=== PATIENT | female | born 1945 | race Caucasian/White ===

== ENCOUNTER → 2019-10-03 12:00 | Outpatient (BNVA) | payer MEDICARE, OTHER, SELFPAY | PROVIDERS: PCP Family Medicine; Visit Provider Family Medicine | DX: M62.830 Muscle spasm of back (principal); K21.9 Gastro-esophageal reflux disease without esophagitis; R79.89 Other specified abnormal findings of blood chemistry; R53.83 Other fatigue; M79.7 Fibromyalgia; G89.4 Chronic pain syndrome; R53.82 Chronic fatigue, unspecified; F51.01 Primary insomnia; R03.0 Elevated blood-pressure reading, without diagnosis of hypertension | CPT/HCPCS: 80053; 82607; 82652; 84443; 85025 ==

== ENCOUNTER → 2019-11-17 12:31 | Outpatient (BNVA) | payer MEDICARE, OTHER, SELFPAY | PROVIDERS: PCP Family Medicine; Visit Provider Emergency Medicine | DX: Z11.59 Encounter for screening for other viral diseases (principal); B35.4 Tinea corporis | CPT/HCPCS: 87635 ==

== ENCOUNTER → 2020-03-10 11:51 | Outpatient (BNVA) | payer MEDICARE, OTHER, SELFPAY | PROVIDERS: PCP Family Medicine; Visit Provider Family Medicine | DX: D22.30 Melanocytic nevi of unspecified part of face (principal) | CPT/HCPCS: 88304 ==

== ENCOUNTER → 2021-03-03 15:15 | Outpatient (BNVA) | payer MEDICARE, OTHER, SELFPAY | PROVIDERS: PCP Family Medicine; Visit Provider Family Medicine | DX: Z13.1 Encounter for screening for diabetes mellitus (principal); R79.89 Other specified abnormal findings of blood chemistry; Z13.220 Encounter for screening for lipoid disorders; Z13.6 Encounter for screening for cardiovascular disorders | CPT/HCPCS: 80053; 80061 ==

== ENCOUNTER → 2021-04-20 14:22 | Outpatient (BNVA) | payer MEDICARE, OTHER, SELFPAY | PROVIDERS: PCP Family Medicine; Visit Provider Nurse Practitioner Family | DX: Z20.822 Contact with and (suspected) exposure to COVID-19 (principal) | CPT/HCPCS: 87635 ==

== ENCOUNTER → 2021-07-07 09:09 | Outpatient (BNVA) | payer MEDICARE, OTHER, SELFPAY | PROVIDERS: PCP Family Medicine; Visit Provider Family Medicine | DX: M62.830 Muscle spasm of back (principal); J30.2 Other seasonal allergic rhinitis; K21.9 Gastro-esophageal reflux disease without esophagitis; R00.0 Tachycardia, unspecified; R74.8 Abnormal levels of other serum enzymes; Z78.0 Asymptomatic menopausal state; M85.80 Other specified disorders of bone density and structure, unspecified site | CPT/HCPCS: 80053; 83735; 84443; 85025 ==

== ENCOUNTER 2021-07-15 10:53 | Emergency (ER) | payer MEDICARE, OTHER, SELFPAY ==
--- NOTE | 2021-07-15 10:54 | W.ED.WEAKNES ---
HPI - Weakness General: Chief complaint: Dizziness Stated complaint: WEAKNESS, SOB Time Seen by Provider: 07/15/21 10:53 Source: patient Mode of arrival: ambulatory Limitations: no limitations History of Present Illness: 76-year-old female presents emergency room with via EMS from [facility] complaining of dizziness and weakness. She was seen last week in the clinic and had a hemoglobin of 8. While follow-up today quick check her hemoglobin was 7.8 she has been pale and weak she is not been tachycardic she has had some back discomfort no chest pain. On arrival she is on 2 L by nasal cannula however when that is discontinued she sats 98 to 99%. She not had any hematochezia melena hematemesis. She has had a few dark stools but nothing that looked black or tarry. MD Complaint: generalized weakness Onset (ago): week(s) (1) Duration: constant Location: generalized Severity: moderate Relieving factors: none Exacerbating factors: none Associated symptoms: Reports melena and decreased appetite; Denies chest pain, chills, confusion, diaphoresis, dysuria, easy bruising, fever(s), headache(s), myalgias, nausea, rash, short of breath, syncope or vomiting Review of Systems Const: Denies: fever(s), chills or diaphoresis ENMT: Denies: throat pain, ear or mastoid pain, nasal discharge or nasal congestion Card: Denies: chest pain or syncope Resp: Denies: dyspnea, productive cough or non-productive cough GI: Reports: melena; Denies: nausea or vomiting : Denies: dysuria Skin/Breast: Denies: rash or pruritus Neuro: Denies: headache(s) or confusion Willis/Lymph: Denies: easy bruising PFS ED PFSH: Medical History Chronic dental infection Chronic GERD Chronic pain syndrome Fibromyalgia Insomnia Surgical History H/O knee surgery H/O: hysterectomy Family History Mother Cancer Lung Cancer Father Cancer Lung Cancer Social History Smoking and tobacco status: never smoked Second hand smoke exposure: No Alcohol intake: never Desire information about alcohol rehabilitation?: No Desire information about substance/drug rehabilitation?: No History of recent travel: No Female Reproductive History: Spontaneous abortions: No Physical Exam Const: COMMON NORMALS: no acute distress GENERAL APPEARANCE: cooperative and comfortable ORIENTATION/CONSCIOUSNESS: Yes awake, Yes oriented to person, Yes oriented to place and Yes oriented to time HENMT: COMMON NORMALS: normocephalic, atraumatic and hearing grossly normal bilaterally HEAD & SCALP: normocephalic and atraumatic Neck/C-Spine: COMMON NORMALS: no JVD Resp: COMMON NORMALS: normal respiratory effort, No retractions, No use of accessory muscles and clear to auscultation bilaterally AUSCULTATION: clear to auscultation bilaterally Cardio: COMMON NORMALS: no JVD, regular rate, regular rhythm and No murmurs present (Cardio) RATE: regular rate RHYTHM: regular rhythm GI: COMMON NORMALS: Soft to palpation and No hepatosplenomegaly present AUSCULTATION: Yes normoactive bowel sounds PALPATION: Yes Soft to palpation, No Tenderness to palpation present (GI), No Guarding due to palpation present (GI) and Yes No hepatosplenomegaly present Extremity: COMMON NORMALS: normal to inspection, capillary refill normal, no clubbing, cyanosis or edema, no calf tenderness and no pedal edema Neuro: SENSORIUM/ORIENTATION: Yes oriented to person, Yes oriented to place and Yes oriented to time Skin: COMMON NORMALS: no rashes or lesions noted GENERAL SKIN EXAM: no rashes or lesions noted Course Vital Signs: Vital signs: Vital Signs Temperature 98.0 F 07/15/21 11:01 Pulse Rate 84 07/15/21 13:39 Respiratory Rate 15 07/15/21 13:39 Blood Pressure 138/79 07/15/21 13:39 Pulse Oximetry 100 07/15/21 13:39 MDM - Weakness Medical Decision Making Patient is microcytic anemia. She has had dark stool but no bright red blood per rectum anemia labs done already and discharge patient from the ER to outpatient surgery to transfuse 1 unit packed red blood cells and follow-up with her primary care doctor also make arrangements for her to see surgery for EGD and colonoscopy will need to continue continue to follow her hemoglobin. Medical Records I reviewed the patient's medical records. Lab Data I reviewed the patient's lab results. : 07/15/21 11:32 07/15/21 11:32 Radiology Impressions Chest X-Ray 07/15/21 10:55 IMPRESSION: 1. No acute findings. 2. Hiatal hernia. 3. Multiple chronic left rib fractures Laboratory Results WBC 5.6 10^3/uL (4.0-10.0) 07/15/21 11: RBC 3.27 10^6/uL (4.1-5.3) L 07/15/21 11:32 Hgb 7.7 g/dL (11.5-15.3) L 07/15/21 11:32 Hct 26.0 % (37.0-47.0) L 07/15/21 11:32 MCV 79.5 fl (81-99) L 07/15/21 11:32 MCH 23.5 pg (28.0-34.0) L 07/15/21 11: MCHC 29.6 g/dL (30.0-36.0) L 07/15/21 11:32 RDW 15.5 % (12.1-15.1) H 07/15/21 11:32 Plt Count 336 10^3/cmm (130-400) 07/15/21 11:32 MPV 10.0 fL (7.4-10.4) 07/15/21 11:32 Neut % (Auto) 68.3 % 07/15/21 11:32 Lymph % (Auto) 20.6 % 07/15/21 11:32 [place] % (Auto) 9.6 % 07/15/21 11:32 Eos % (Auto) 0.9 % 07/15/21 11:32 Baso % (Auto) 0.4 % 07/15/21 11:32 Reticulocyte % (Auto) 2.0 % (0.5-2.0) 07/15/21 11:32 Neut # (Auto) 3.84 10^3/uL (1.8-7.7) 07/15/21 11:32 Lymph # (Auto) 1.2 10^3/uL (0.8-4.8) 07/15/21 11:32 [place] # (Auto) 0.5 10^3/uL (0.2-0.9) 07/15/21 11:32 Eos # (Auto) 0.1 10^3/uL (0.0-0.8) 07/15/21 11:32 Baso # (Auto) 0.0 10^3/uL (0.0-0.1) 07/15/21 11:32 Nucleated RBC % (auto) 0 % 07/15/21 11:32 Nucleated RBCs # 0.0 /100WBC 07/15/21 11:32 Haptoglobin 166.0 mg/L (30-200) 07/15/21 11:32 Sodium 136 mmol/L (136-145) 07/15/21 11:32 Potassium 4.0 mmol/L (3.5-5.1) 07/15/21 11:32 Chloride 104 mmol/L (98-107) 07/15/21 11:32 Carbon Dioxide 19 mmol/L (22-29) L 07/15/21 11:32 Anion Gap 17.0 (5-19) 07/15/21 11:32 BUN 17 mg/dL (8-23) 07/15/21 11:32 Creatinine 0.8 mg/dL (0.5-0.9) 07/15/21 11:32 GFR Calculation Not Reportable 07/15/21 11:32 Glucose 84 mg/dL (65-115) 07/15/21 11:32 Calculated Osmolality 283 mOsm/kg (285-295) L 07/15/21 11:32 Calcium 9.0 mg/dL (8.5-10.5) 07/15/21 11:32 Iron 15 ug/dL (37-145) L 07/15/21 11:32 TIBC 323 mcg/dl 07/15/21 11:32 % Saturation 4.6 % (20-50) L 07/15/21 11:32 Unsat Iron Binding 308 ug/dL (112-347) 07/15/21 11:32 Ferritin 8 ng/mL (15-150) L 07/15/21 11:32 Total Bilirubin 0.2 mg/dL (0.15-1.2) 07/15/21 11:32 AST 16 U/L (0-32) 07/15/21 11:32 ALT 11 U/L (0-33) 07/15/21 11:32 Alkaline Phosphatase 65 IU/L (35-105) 07/15/21 11:32 Total Protein 6.9 g/dL (6.6-8.7) 07/15/21 11:32 Albumin 3.9 g/dL (3.5-5.2) 07/15/21 11:32 Globulin 3.0 g/dL (1.3-4.6) 07/15/21 11:32 Vitamin B12 226 pg/mL (232-1245) L 07/15/21 11:32 Folate 14.0 ng/mL (4.8-37.3) 07/15/21 11:32 Urine Color Yellow (Yellow) 07/15/21 11:32 Urine Appearance Clear (CLEAR) 07/15/21 11:32 Urine pH 8 (5-7) H 07/15/21 11:32 Ur Specific [place] 1.010 (1.005-1.030) 07/15/21 11:32 Urine Protein Neg (Negative) 07/15/21 11:32 Urine Glucose (UA) Norm (Normal) 07/15/21 11:32 Urine Ketones Negative (Negative) 07/15/21 11:32 Urine Blood Neg (Negative) 07/15/21 11:32 Urine Nitrate Negative (Negative) 07/15/21 11:32 Urine Bilirubin Neg (Negative) 07/15/21 11:32 Prot Sulfosalicylic Acd Negative (Negative) 07/15/21 11:32 Urine Urobilinogen Norm mg/dL (Negative) 07/15/21 11:32 Ur Leukocyte Esterase Negative (Negative) 07/15/21 11:32 Blood Type Cancelled 07/15/21 12:12 Rho(D) Type Cancelled 07/15/21 12:12 Antibody Screen Cancelled 07/15/21 12:12 Crossmatch See Detail 07/15/21 12:12 Discharge Plan Discharge Patient Disposition: Home Clinical Impression: Iron deficiency anemia Condition: Stable Prescriptions: No Action fluticasone propionate [Flonase Allergy Relief] 50 mcg/actuation spray,suspension 1 spray intranasal BID Qty: 18.2 5RF Rx Instructions: administer into each nostril famotidine 20 mg tablet 20 mg PO BID 90 Days Qty: 180 1RF cyclobenzaprine 10 mg tablet 10 mg PO BID PRN (Reason: muscle spasm) 30 Days Qty: 30 1RF Rx Instructions: fill when requested Allergy Relief (fexofenadine) 180 mg tablet 180 mg PO DAILY PRN (Reason: Allergy Symptoms) 0RF Calcium + D 600 mg-5 mcg (200 unit) Tablet 1 tab PO BID 0RF Vitamin C 500 mg Tablet 500 mg PO DAILY 0RF gabapentin 100 mg capsule 200 mg PO BID 0RF Discharge Orders: Discharge ED (Routine); Ordered 07/15/21 Ordered By: Madhu Terrazas Referrals: Estefani Montaño MD [Primary Care Provider] - Discharge Diet: Usual diet Discharge Activity: Increase activity as tolerated Patient Instructions: Opioid Safety Activity Restrictions/Additional Instructions: Be discharged from the ER taken to outpatient GI will transfuse 1 unit of blood. Follow-up with your doctor within a week and case management make arrangements for you to follow-up with surgery for endoscopy. Coding Level of Care Code ED E Commerce Project Manager for Jeremias Fwsri Exam Comprehensive
--- NOTE | 2021-07-15 10:55 | XRR_ITS ---
PROCEDURE INFORMATION: Exam: XR Chest Exam date and time: 07/15/2021 11:19 AM Age: 76 years old Clinical indication: Cough and dyspnea; Additional info: Dyspnea/cough TECHNIQUE: Imaging protocol: XR of the chest. Views: 1 view. COMPARISON: No relevant prior studies available. FINDINGS: Lungs: Unremarkable. No consolidation. Pleural spaces: Unremarkable. No pleural effusion. No pneumothorax. Heart/Mediastinum: Unremarkable. No cardiomegaly. There is a hiatal hernia present. Bones/joints: There are several chronic left posterolateral rib fractures XR/XR chest 1V portable [id number] IMPRESSION: 1. No acute findings. 2. Hiatal hernia. 3. Multiple chronic left rib fractures
--- NOTE | 2021-07-15 10:55 | ECG_ITS ---
[facility] Test Date: 2021-07-15 Pat Name: Vika Rocha Department: Room: Gender: Female Community Organization Worker: : 1945 Requested By: Madhu Rivera Order Number: [id number] Zulema MD: Mary Ann Gandhi M.D. Measurements Intervals [place] Rate: 68 P: 60 UT: 170 QRS: -13 QRSD: 81 T: 72 QT: 388 QTc: 413 Interpretive Statements SINUS RHYTHM POSSIBLE LEFT ATRIAL ENLARGEMENT [-0.1mV P-WAVE IN V1/V2] NONSPECIFIC T-WAVE ABNORMALITY No previous ECG available for comparison Electronically Signed On 07-15-2021 23:18:25 CDT by Mary Ann Gandhi M.D. [id number]
[2021-07-15 11:01] VITALS: BP 140/88; PULSE 71; RESP 17; TEMP 36.7; O2SAT 100; BMI 25.0
[2021-07-15 11:38] VITALS: BP 147/92
[2021-07-15 11:46] LABS: Add Urine Microscopic? NO
[2021-07-15 11:47] LABS: Charge for UA Resulting for Rev
[2021-07-15 11:49] LABS: Basophils % 0.4 %; Eosinophils # 0.1 10^3/uL (0.0-0.8); Eosinophils % 0.9 %; Hemoglobin 7.7 g/dL (11.5-15.3); Lymphocytes # 1.2 10^3/uL (0.8-4.8); Lymphocytes % 20.6 %; Mean Corpuscular HGB Conc 29.6 g/dL (30.0-36.0); Mean Corpuscular Hemoglobin 23.5 pg (28.0-34.0); Mean Corpuscular Volume 79.5 fl (81-99); Monocytes # 0.5 10^3/uL (0.2-0.9); Monocytes % 9.6 %; Neutrophils # 3.84 10^3/uL (1.8-7.7); Neutrophils % 68.3 %; Nucleated Red Blood Cells % 0 %; Platelet Count 336 10^3/cmm (130-400); Red Blood Count 3.27 10^6/uL (4.1-5.3); Red Cell Distribution Width 15.5 % (12.1-15.1); White Blood Count 5.6 10^3/uL (4.0-10.0)
--- NOTE | 2021-07-15 11:51 | PC.NURSE ---
pvc monitor placed on patient.
[2021-07-15 11:53] VITALS: BP 147/92; PULSE 73; RESP 24; O2SAT 99
[2021-07-15 12:07] LABS: Urine Appearance Clear (CLEAR); Urine Color Yellow (Yellow)
[2021-07-15 12:08] LABS: Bilirubin Urine Neg (Negative); Blood Urine Neg (Negative); Glucose Urine UA Norm (Normal); Ketones Urine Negative (Negative); Leukocyte Esterase Urine Negative (Negative); Nitrate Urine Negative (Negative); Protein Urine Neg (Negative); Urobilinogen Urine Norm (Negative); pH Urine 8 (5-7)
[2021-07-15 12:11] LABS: Sulfosalicylic Acid Urine Negative (Negative)
[2021-07-15 12:18] VITALS: BP 132/76; PULSE 83; RESP 14; O2SAT 97
[2021-07-15 12:22] LABS: Alanine Aminotransferase 11 U/L (0-33); Albumin Level 3.9 g/dL (3.5-5.2); Alkaline Phosphatase 65 IU/L (35-105); Aspartate Amino Transferase 16 U/L (0-32); Blood Urea Nitrogen 17 mg/dL (8-23); Carbon Dioxide 19 mmol/L (22-29); Chloride 104 mmol/L (98-107); Glucose 84 mg/dL (65-115); Osmolality Calculated 283 mOsm/kg (285-295); Sodium 136 mmol/L (136-145); Total Bilirubin 0.2 mg/dL (0.15-1.2); Total Protein 6.9 g/dL (6.6-8.7)
[2021-07-15 13:18] VITALS: BP 140/83; PULSE 70; RESP 18; O2SAT 100
[2021-07-15 13:22] LABS: Ferritin 8 ng/mL (15-150); Iron 15 ug/dL (37-145); Percent Saturation 4.6 % (20-50); Total Iron Binding Capacity 323 mcg/dl; Unsaturated Iron Binding 308 ug/dL (112-347); Vitamin B12 226 pg/mL (232-1245)
[2021-07-15 13:39] VITALS: BP 138/79; PULSE 84; RESP 15; O2SAT 100
--- NOTE | 2021-07-17 14:56 | DCPLANNER ---
Addendum entered by Luzma Noriega 08/05/21 21:31: Patient had a follow up appointment scheduled with general surgery - patient did attend appointment. Addendum entered by Luzma Noriega 07/23/21 13:50: Patient has a follow up appointment scheduled for Tuesday, July 29, 2021 at 9:[address] Chinchilla at general surgery. Clinic will call patient with appointment information. Addendum entered by Luzma Noriega 07/23/21 08:18: advertising assistant manager sent patients information to the front office staff at general surgery, just checking on referral. Original Note: advertising assistant manager had message to schedule a follow up appointment for patient with general surgery. advertising assistant manager sent patients information to the front office staff at general surgery. Patients information will be printed and reviewed. Clinic will call patient with appointment information.
== END 2021-07-15 13:41 | disposition home or self-care (01) ==
PROVIDERS: Emergency Provider Family Medicine; PCP Family Medicine
DX: D50.9 Iron deficiency anemia, unspecified (principal); D64.9 Anemia, unspecified
CPT/HCPCS: 36415; 36430; 71045; 80053; 81003; 82607; 82728; 82746; 83010; 83540; 83550; 85025; 85045; 86850; 86900; 86920; 93005; 99284; P9040

== ENCOUNTER → 2021-07-15 13:46 | Day surgery (SDC) | payer MEDICARE, OTHER, SELFPAY ==
[2021-07-15] VITALS (7 sets, daily range): BP systolic 127–155; BP diastolic 62–92; PULSE 70–81; RESP 17–20; TEMP 35.7–37; O2SAT 98–100; BMI 25.0
== END ==
PROVIDERS: PCP Family Medicine; Visit Provider Family Medicine
DX: D64.9 Anemia, unspecified (principal)
CPT/HCPCS: 36415; 36430; 86850; 86900; 86920; P9040

== ENCOUNTER → 2021-07-29 09:17 | Outpatient (BNVA) | payer MEDICARE, OTHER, SELFPAY | PROVIDERS: PCP Family Medicine; Referring Provider Family Medicine; Visit Provider Surgery | DX: D62 Acute posthemorrhagic anemia (principal) | CPT/HCPCS: 99203 ==

== ENCOUNTER → 2021-08-07 07:50 | Day surgery (SDC) | payer MEDICARE, OTHER, SELFPAY ==
[2021-08-07] VITALS (9 sets, daily range): BP systolic 103–142; BP diastolic 53–79; PULSE 58–96; RESP 18; TEMP 36.2–37.1; O2SAT 95–100
[2021-08-07 08:43] LABS: Hematocrit 25.6 % (37.0-47.0); Hemoglobin 7.3 g/dL (11.5-15.3)
[2021-08-07] MEDS: sodium chloride 0.9% (100 ml) 100 ML 10 ML ×2 (09:33→11:53)
--- NOTE | 2021-08-07 09:38 | PC.NURSE ---
Pt to GI lab for 2 units PRBC's. Hg 7.3 from today. First unit transfusing without difficulty. No reaction noted.
== END ==
PROVIDERS: PCP Family Medicine; Visit Provider Family Medicine
DX: D50.9 Iron deficiency anemia, unspecified (principal)
CPT/HCPCS: 36415; 36430; 85014; 85018; 86850; 86900; 86920; P9016

== ENCOUNTER → 2021-09-15 12:46 | Outpatient (BNVA) | payer MEDICARE, OTHER, SELFPAY | PROVIDERS: PCP Family Medicine; Visit Provider Internal Medicine Cardiovascular Disease | DX: R06.02 Shortness of breath (principal); D62 Acute posthemorrhagic anemia; K21.9 Gastro-esophageal reflux disease without esophagitis; G89.4 Chronic pain syndrome; K92.1 Melena | CPT/HCPCS: 99204 ==

== ENCOUNTER 2021-09-25 08:04 | Day surgery (SDC) | payer MEDICARE, OTHER, SELFPAY ==
[2021-09-23 08:39] VITALS: BMI 24.7
[2021-09-25 08:18] VITALS: BP 120/84; PULSE 81; RESP 18; TEMP 36.1; O2SAT 98
[2021-09-25] MEDS: sodium chloride 0.9% 1,000 ML 30 ML IV (08:30)
--- NOTE | 2021-09-25 09:06 | ANES.PREANE2 ---
Pre-Anesthetic Assessment Height/Weight: Height 1.6 m Weight 63.503 kg Temp Pulse Resp BP Pulse Ox 97.0 F L 81 18 120/84 98 09/25/21 08:18 09/25/21 08:18 09/25/21 08:18 09/25/21 08:18 09/25/21 08:18 Preop Diagnosis: Iron deficiency anemia Operation Date: 09/25/21 09:30 Proposed Procedures p EGD 26298/42608/d50.9(Not Applicable) - Erickson Chinchilla MD s Colonoscopy(Not Applicable) - Erickson Chinchilla MD Familial anesthetic complications: None Was Beta Serge taken within 24 hours: N/A Was Clonidine taken within 24 hours: N/A Last intake: Intake Last Liquid Date 09/24/21 Last Liquid Time 23:00 Last Solid Date 09/23/21 Last Solid Time 18:00 Social No alcohol and No tobacco Exam alert, oriented x 3, clear to auscultation bilaterally and regular rate & rhythm Airway Submandibular: within normal limits Cervical ROM: within normal limits Mallampati: Class I Dentition: full History/ROS No significant complaints Pulmonary Asthma CV/HEM Anemia None reported Hepatic None reported GI Gastroesophageal Reflux Disease GI bleed Metabolic None reported Musc/skel Fibromyalgia chronic pain syndrome Neuropsych None reported Anesthetic Plan ASA status: 2 Anesthesia: Anesthesia Evaluation and MAC Other: I discussed with the patient risks, goals, and benefits of MAC and general anesthesia. We discussed spectrum of MAC anesthesia including conversion to general as well as possibility of recall of intraoperative stimuli including discomfort/pain. Patient agrees to proceed with MAC. Risk of > 500 ml blood loss (7ml/kg in children): No Medications/Allergies Home Medications Medication Instructions Recorded Confirmed Last Taken Type cyclobenzaprine 10 mg tablet 10 mg PO BID PRN 30 Days #30 tab 07/07/21 09/25/21 08/20/21 Rx fluticasone propionate 50 1 spray INTRANASAL BID #18.2 ml 07/07/21 09/25/21 09/23/21 Rx mcg/actuation nasal spray,suspension (Flonase Allergy Relief) ascorbic acid (vitamin C) 500 mg 500 mg PO DAILY 07/15/21 09/25/21 09/23/21 History tablet (Vitamin C) fexofenadine 180 mg tablet 180 mg PO DAILY PRN 07/15/21 09/25/2109/23/22 History (Allergy Relief (fexofenadine)) ferrous sulfate [Iron (ferrous 65 mg PO DAILY 07/29/21 09/25/21 09/23/21 History sulfate)] calcium carbonate 600 mg-vitamin 1 tab PO DAILY tab 09/15/21 09/25/21 09/23/21 History D3 5 mcg (200 unit) tablet famotidine 20 mg tablet 20 mg PO DAILY tab 09/15/21 09/25/21 09/23/21 History gabapentin 100 mg capsule 200 mg PO DAILY cap 09/15/21 09/25/21 09/23/21 History Allergies Allergy/AdvReac Type Severity Reaction Status Date / Time aspirin Allergy Severe ALGY-Swell Verified 09/25/21 09:08 Lip/Tongue/Throat Current Medications Generic Name Dose Route Start Last Admin Trade Name Freq PRN Reason Stop Dose Admin Sodium Chloride 1,000 mls @ 30 mls/hr 09/25/21 08:15 09/25/21 08:30 Sodium Chloride 0.9% IV 30 mls/hr .Q24H AUGUSTUS Administration PFSH Anesthesia Medical History Chronic dental infection Chronic GERD Chronic pain syndrome Fibromyalgia Insomnia Surgical History H/O knee surgery H/O: hysterectomy Family History Mother Cancer Lung Cancer Father Cancer Lung Cancer Hypertension Social History Smoking and tobacco status: never smoked Second hand smoke exposure: No Alcohol intake: never Desire information about alcohol rehabilitation?: No Desire information about substance/drug rehabilitation?: No History of recent travel: No Female Reproductive History Spontaneous abortions: No Data Anesthesia Cardiac Studies: No Data to Display
--- NOTE | 2021-09-25 09:07 | W.PM.OPSFHP ---
Same Day Surgery H&P Indication for Procedure/HPI DATE OF PROCEDURE: September 25, 2021 CHIEF COMPLAINT/INDICATIONFOR SURGICAL PROCEDURE: Anemia PREOP DIAGNOSIS: Iron deficiency anemia PLANNED PROCEDURE: Operation Date: 09/25/21 09:30 Proposed Procedures p EGD 32112/47164/d50.9(Not Applicable) - Erickson Chinchilla MD s Colonoscopy(Not Applicable) - Erickson Chinchilla MD 07/29/2021 This is a pleasant 76 years old female patient referred to my practice with history of iron deficiency anemia requiring blood transfusion.? Patient denies history of hematemesis or bleeding per rectum, or weight loss or history of colon cancer.? She had previous colonoscopies at age of 61 and 71 respectively and both were within normal limits per her description.? She gives history of hiatal hernia 09/25/2021 Patient comes today for diagnostic EGD and colonoscopy ROS All systems have been reviewed negative except as for the above or per problem list. Medications/Allergies* Home Medications Medication Instructions Recorded Confirmed Type ascorbic acid (vitamin C) 500 mg 500 mg PO DAILY 07/15/21 09/25/21 History tablet (Vitamin C) fexofenadine 180 mg tablet 180 mg PO DAILY PRN 07/15/21 09/25/21 History (Allergy Relief (fexofenadine)) ferrous sulfate [Iron (ferrous 65 mg PO DAILY 07/29/21 09/25/21 History sulfate)] calcium carbonate 600 mg-vitamin 1 tab PO DAILY tab 09/15/21 09/25/21 History D3 5 mcg (200 unit) tablet famotidine 20 mg tablet 20 mg PO DAILY tab 09/15/21 09/25/21 History gabapentin 100 mg capsule 200 mg PO DAILY cap 09/15/21 09/25/21 History Allergies/Adverse Reactions Allergy/AdvReac Type Severity Reaction Status Date / Time aspirin Allergy Severe ALGY-Swell Verified 09/25/21 09:08 Lip/Tongue/Throat Current Medications: Generic Name Dose Route Start Last Admin Trade Name Freq PRN Reason Stop Dose Admin Sodium Chloride 1,000 mls @ 30 mls/hr 09/25/21 08:15 09/25/21 08:30 Sodium Chloride 0.9% IV 30 mls/hr .Q24H AUGUSTUS Administration Pertinent History/Comorbid Conditions* Medical History (Updated 07/23/21 @ 00:01 by ) Chronic dental infection Chronic GERD Chronic pain syndrome Fibromyalgia Insomnia Surgical History (Updated 05/16/19 @ 13:47 by Estefani Montaño MD) H/O knee surgery H/O: hysterectomy Family History (Updated 09/15/21 @ 13:05 by Suyapa Miller RN) Father Mother Cancer Mother Lung Cancer Father Lung Cancer Hypertension Father Social History Smoking and tobacco status: never smoked Second hand smoke exposure: No Alcohol intake: never Desire information about alcohol rehabilitation?: No Desire information about substance/drug rehabilitation?: No History of recent travel: No Pertinent Exam Findings alert, regular rate & rhythm and procedure specific exam findings (Abdominal examination nontender nondistended soft) Recommendations Surgery/Procedure today (Diagnostic EGD and colonoscopy with possible biopsy) Coding Level of Care Code Acute Anesthesia Technician for Jeremias Blackman
[2021-09-25 09:35] VITALS: BP 90/77; PULSE 70; RESP 21; TEMP 36.1; O2SAT 95
[2021-09-25 09:48] VITALS: BP 115/67; PULSE 65; RESP 16; O2SAT 97
[2021-09-25 09:57] VITALS: BP 111/71; PULSE 66; RESP 16; O2SAT 98
--- NOTE | 2021-09-25 12:01 | ANE.PACU2 ---
Inpatient post-anesthesia follow up: Airway intact: Yes Vital signs: Temperature 97 F Pulse Rate 66 Respiratory Rate 16 Blood Pressure 111/71 Pulse Oximetry 98 Oxygen Delivery Me thod Room Air Oxygen Flow Rate Fraction of Inspir ed Oxygen Hydration adequate: Yes Nausea and vomiting: No Pain level: 1 Mental status: Baseline
== END 2021-09-25 10:05 | disposition home or self-care (01) ==
PROVIDERS: PCP Family Medicine; Visit Provider Surgery
PROC: 0DJ08ZZ Inspection of Upper Intestinal Tract, Via Natural or Artificial Opening Endoscopic (ICD-10-PCS; CPT 43235; principal; 2021-09-25 09:30)
PROC: 0DJD8ZZ Inspection of Lower Intestinal Tract, Via Natural or Artificial Opening Endoscopic (ICD-10-PCS; CPT 45378; 2021-09-25 09:30)
DX: D50.9 Iron deficiency anemia, unspecified (principal); K57.30 Diverticulosis of large intestine without perforation or abscess without bleeding; K44.9 Diaphragmatic hernia without obstruction or gangrene; K29.70 Gastritis, unspecified, without bleeding; K29.80 Duodenitis without bleeding; K21.9 Gastro-esophageal reflux disease without esophagitis; M79.7 Fibromyalgia
CPT/HCPCS: 43239; 45378; 88305; J2704; J7030

== ENCOUNTER → 2021-09-29 10:45 | Outpatient (BNVA) | payer MEDICARE, OTHER, SELFPAY | PROVIDERS: PCP Family Medicine; Visit Provider Family Medicine | DX: D62 Acute posthemorrhagic anemia (principal); R21 Rash and other nonspecific skin eruption; K29.90 Gastroduodenitis, unspecified, without bleeding; K57.31 Diverticulosis of large intestine without perforation or abscess with bleeding | CPT/HCPCS: 85018 ==

== ENCOUNTER → 2021-10-07 14:33 | Outpatient (BNVA) | payer MEDICARE, OTHER, SELFPAY | PROVIDERS: PCP Family Medicine; Visit Provider Surgery | DX: K57.31 Diverticulosis of large intestine without perforation or abscess with bleeding (principal); K44.9 Diaphragmatic hernia without obstruction or gangrene | CPT/HCPCS: 99213 ==

== ENCOUNTER 2021-11-09 14:24 | Outpatient (CLI) | payer MEDICARE, OTHER, SELFPAY ==
--- NOTE | 2021-11-09 14:30 | XR_ITS ---
WS: [id number] DEXA (DUAL ENERGY X-RAY ABSORPTIOMETRY) Bone mineral density was performed using a [employer] machine. HISTORY: Z78.0 - Asymptomatic menopausal state COMPARISON: None available. Lumbar spine BMD (L1-L4): 1.107 g/cm2 T score: -0.6 Z score: 1.2 Total hip BMD: Left: 0.726 g/cm2. T score: -2.2 Z score: -0.5 Right: 0.793 g/cm2. T score: -1.7 Z score: 0.1 10 year probability of a major osteoporotic fracture is 20.6%. XR/XR DEXA axial skeleton* 72997 IMPRESSION: OSTEOPENIA based upon the WHO classification for females.
== END 2021-11-09 14:25 | disposition home or self-care (01) ==
PROVIDERS: PCP Family Medicine; Visit Provider Family Medicine
DX: Z78.0 Asymptomatic menopausal state (principal); M85.80 Other specified disorders of bone density and structure, unspecified site
CPT/HCPCS: 77080

== ENCOUNTER → 2021-12-30 11:16 | Outpatient (BNVA) | payer MEDICARE, OTHER, SELFPAY | PROVIDERS: PCP Family Medicine; Visit Provider Family Medicine | DX: K21.9 Gastro-esophageal reflux disease without esophagitis (principal); J30.2 Other seasonal allergic rhinitis; K92.1 Melena; E78.2 Mixed hyperlipidemia; Z13.1 Encounter for screening for diabetes mellitus; Z13.220 Encounter for screening for lipoid disorders; Z13.6 Encounter for screening for cardiovascular disorders; F51.01 Primary insomnia | CPT/HCPCS: 80053; 80061; 85025 ==

== ENCOUNTER → 2022-07-13 08:57 | Outpatient (BNVA) | payer MEDICARE, OTHER, SELFPAY | PROVIDERS: PCP Family Medicine; Visit Provider Family Medicine | DX: R53.83 Other fatigue (principal); D62 Acute posthemorrhagic anemia | CPT/HCPCS: 72100; 72202; 80053; 82607; 84443; 85025 ==

== ENCOUNTER 2022-10-13 17:06 | Emergency (ER) | payer MEDICARE, OTHER, SELFPAY ==
[2022-10-13] VITALS (9 sets, daily range): BP systolic 117–132; BP diastolic 70–86; PULSE 85–97; RESP 15–24; TEMP 36.8; O2SAT 94–100; BMI 24.6
--- NOTE | 2022-10-13 17:09 | XRR_ITS ---
PROCEDURE INFORMATION: Exam: XR Chest Exam date and time: 10/13/2022 5:14 PM Age: 77 years old Clinical indication: Cough; Additional info: SOB TECHNIQUE: Imaging protocol: Radiologic exam of the chest. Views: 1 view. COMPARISON: CR XR chest 1V portable [id number] 07/15/2021 11:19 AM FINDINGS: Lungs: The lungs are hyperinflated, consistent with COPD. No consolidative pulmonary infiltrates are noted. Pleural spaces: No pleural effusion. No pneumothorax. Heart/Mediastinum: There is a hiatal hernia noted. Bones/joints: Multiple old healed left rib fractures. No acute fractures are identified. XR/XR chest 1V portable [id number] IMPRESSION: 1. Multiple old healed left rib fractures. No acute fracture demonstrated. 2. There is a hiatal hernia noted. 3. The lungs are hyperinflated, consistent with COPD. 4. No acute abnormality demonstrated. 5. There is no interval change from the prior examination.
[2022-10-13 17:23] LABS: ABG PCO2 34.4 mmHg (35-45); ABG PH Result 7.46 (7.35-7.45); Arterial Blood Gas Hematocrit 38.1 % (37-47); Base Excess ABG 0.8 mmol/L (-2.0-2.0); Blood Gas Allen Test Pos; Blood Gas Operator Identificat WALCI; Blood Gas Sample Site Radial, left; Blood Gas Sample Type Arterial; Carboxyhemoglobin 1.2 %THgb (0.4-20.1); HCO3 ABG 24.3 mmol/L (22-26); HGB O2 Sat 94.7 % (95-100); Methemoglobin 0.5 % (0.4-1.5); Oxygen Device ROOM AIR; PO2 ABG 75.4 mmHg (80.0-100.0); Total Hemoglobin 12.4 g/dL (12-16)
[2022-10-13 17:56] LABS: Basophils % 0.3 %; Eosinophils # 0.1 10^3/uL (0.0-0.8); Hematocrit 38.8 % (37.0-47.0); Hemoglobin 12.5 g/dL (11.5-15.3); Lymphocytes # 1.1 10^3/uL (0.8-4.8); Lymphocytes % 11.3 %; Mean Corpuscular HGB Conc 32.2 g/dL (30.0-36.0); Mean Corpuscular Hemoglobin 27.7 pg (28.0-34.0); Mean Corpuscular Volume 85.8 fl (81-99); Mean Platelet Volume 8.8 fL (7.4-10.4); Monocytes # 0.9 10^3/uL (0.2-0.9); Monocytes % 8.7 %; Neutrophils # 7.91 10^3/uL (1.8-7.7); Neutrophils % 78.2 %; Nucleated Red Blood Cells % 0 %; Platelet Count 482 10^3/cmm (130-400); Red Blood Count 4.52 10^6/uL (4.1-5.3); Red Cell Distribution Width 13.7 % (12.1-15.1); White Blood Count 10.1 10^3/uL (4.0-10.0)
[2022-10-13 18:13] LABS: Alanine Aminotransferase 8 U/L (0-33); Albumin Level 3.5 g/dL (3.5-5.2); Alkaline Phosphatase 93 U/L (35-105); Aspartate Amino Transferase 11 U/L (0-32); Blood Urea Nitrogen 13 mg/dL (8-23); Calcium 8.7 mg/dL (8.5-10.5); Carbon Dioxide 25 mmol/L (22-29); Chloride 96 mmol/L (98-107); Globulin 4.9 g/dL (1.3-4.6); Glucose 95 mg/dL (65-115); Osmolality Calculated 274 mOsm/kg (285-295); Sodium 132 mmol/L (136-145); Total Bilirubin 0.2 mg/dL (0.15-1.2); Total Protein 8.4 g/dL (6.6-8.7)
[2022-10-13] MEDS: methylPREDNISolone sod succ 125 mg SDV 80 MG IVP (18:59)
[2022-10-13 19:04] LABS: NT Pro B Type Natriuretic Pept 209 pg/mL (0-450)
--- NOTE | 2022-10-13 19:16 | CTR_ITS ---
PROCEDURE INFORMATION: Exam: CTA Chest With Contrast Exam date and time: 10/13/2022 7:45 PM Age: 77 years old Clinical indication: Shortness of breath; Additional info: Hypoxia TECHNIQUE: Imaging protocol: Computed tomographic angiography of the chest with contrast. Exam focused on the arteries. 3D rendering (Not supervised by radiologist): MIP and/or 3D reconstructed images were created by the technologist. Radiation optimization: All CT scans at this facility use at least one of these dose optimization techniques: automated exposure control; mA and/or kV adjustment per patient size (includes targeted exams where dose is matched to clinical indication); or iterative reconstruction. Contrast material: OMNI 350; Contrast volume: 100 ml; Contrast route: INTRAVENOUS (IV); REPORTING DATA: Count of CT and Cardiac NM exams in prior 12 months: This patient has received 0 known CTs and 0 known cardiac nuclear medicine studies in the 12 months prior to the current study. COMPARISON: CR (CHEST, ) 10/13/2022 5:14 PM RADIATION DOSE METRICS: Total DLP (mGy-cm): 299.02 FINDINGS: Pulmonary arteries: Pulmonary arteries are normal in size. No filling defects are demonstrated. No evidence of pulmonary embolism. Aorta: Thoracic aorta is atherosclerotic. No aortic aneurysm or aortic dissection noted. Lungs: Mild atelectasis at the lung bases. No consolidation. No masses. Pleural spaces: No pneumothorax. No pleural effusion. Heart: No cardiomegaly. No pericardial effusion. Coronary arteries: The coronary arteries demonstrate atherosclerotic calcifications. Lymph nodes: No mediastinal, hilar, or axillary adenopathy. Adenopathy demonstrated in the upper abdomen. Enlarged aortocaval lymph nodes are seen measuring up to 15 mm in length. Stomach and bowel: Large hiatal hernia noted, containing a large portion of the stomach. Bones/joints: Degenerative spine changes are noted. No acute osseous abnormality. Soft tissues: Unremarkable. CT/CT angio chest PE protcl [id number] IMPRESSION: 1. No evidence of pulmonary embolism. 2. No evidence of thoracic aortic aneurysm or dissection. 3. Large hiatal hernia noted, containing a large portion of the stomach. 4. Adenopathy demonstrated in the upper abdomen. Enlarged aortocaval lymph nodes are seen measuring up to 15 mm in length.
[2022-10-13] MEDS: ipratropium-albuterol 3 mL Neb INHALATION (19:19)
[2022-10-13] MEDS: iohexol 350 mg/mL 500 mL Btl (per mL) IV (19:50)
--- NOTE | 2022-10-13 20:29 | ED_ITS ---
HPI - URI/Sore Throat General: Chief Complaint: Upper Respiratory Infection Stated Complaint: COUGH History of Present Illness: 77-year-old female presented emergency room with cough for the past 3 weeks. Patient described the cough as nonproductive cough. Coughing up blood, vomiting blood, chest pain, fever or chills. Patient was seen and evaluated at a local clinic and sent to the emergency room for further evaluation when she was found to be tachycardic and hypoxic. According to the EMS patient's oxygen level was 70% on room air. Denies any history of asthma, blood clot, leg pain, leg swelling or calf tenderness. No known sick contact or recent foreign travel. Associated symptoms: Deny chills, chest pain or fever(s) Review of Systems General: Reports: 10 or more systems reviewed and unremarkable except in HPI and below Const: Denies: fever(s), chills, body aches, change in appetite, change in weight, fatigue or malaise Card: Denies: chest pain, palpitations, irregular heart rhythm, edema, swe lling of feet/ankles, lightheadedness or syncope Resp: Reports: non-productive cough; Denies: dyspnea, wheezing, stridor, pain on inspiration, change in phlegm color, hemoptysis or chest congestion Skin/Breast: Denies: rash, pruritus, erythema or photosensitivity PFSH ED PFSH: Medical History Chronic dental infection Chronic GERD Chronic pain syndrome Fibromyalgia GI bleed If continues to be of concern about GI to be a source of patient's anemia a capsule endoscopy would be the next step. Insomnia Surgical History H/O knee surgery H/O: hysterectomy History of colonoscopy Family History Mother Cancer Lung Cancer Father Cancer Lung Cancer Hypertension Social History Smoking and tobacco status: never smoked Second hand smoke exposure: No Alcohol intake: never Desire information about alcohol rehabilitation?: No Substance/Drug Use: never Desire information about substance/drug rehabilitation?: No Female Reproductive History: Spontaneous abortions: No Physical Exam Const: COMMON NORMALS: no acute distress, average body habitus, patient oriented x3, no limitations, healthy appearing, alert and well nourished Neck/C-Spine: COMMON NORMALS: no JVD Lymph: LYMPHATIC: no lymphadenopathy noted Resp: AUSCULTATION: no crackles, no rales, wheezes, breath sounds present, lung sounds not diminished, no bronchial breath sounds, no bronchovesicular breath sounds, no egophony, no tactile fremitus and No rub present Cardio: COMMON NORMALS: no JVD, regular rate, regular rhythm, S1 normal heart sound present, S2 normal heart sound present, No gallops present (Cardio), No clicks present (Cardio), No murmurs present (Cardio), No rub (Cardio) and Peripheral pulses 2+ throughout RATE: regular rate RHYTHM: regular rhythm HEART SOUNDS: S1 normal heart sound present and S2 normal heart sound present PERIPHERAL PULSES: Peripheral pulses 2+ throughout GI: COMMON NORMALS: Normal to inspection, nondistended, normoactive bowel sounds present, Soft to palpation, non-tender, No hepatosplenomegaly present, no masses and no bruits PALPATION: Yes Soft to palpation and Yes No hepatosplenomegaly present Extremity: COMMON NORMALS: normal to inspection, full ROM, capillary refill normal, no joint enlargement, no clubbing, cyanosis or edema, no calf tenderness and no pedal edema Neuro: COMMON NORMALS: patient oriented x3 SENSORIUM/ORIENTATION: Yes alert Psych: COMMON NORMALS: mental status grossly normal, Normal thought process present, cooperative, normal affect, speech normal, activity/motor behavior normal, denies hallucinations, denies homicidal ideation and denies suicidal ideation SPEECH: Yes normal speech THOUGHT PROCESS: Normal thought process present Course Vital Signs: Vital signs: Vital Signs Temperature 98.3 F 10/13/22 17:03 Pulse Rate 91 10/13/22 19:24 Respiratory Rate 18 10/13/22 19:20 Blood Pressure 117/70 10/13/22 19:03 Pulse Oximetry 98 10/13/22 19:20 Oxygen Delivery Me thod Room Air 10/13/22 19:20 MDM - URI/Sore Throat Medical Decision Making Patient made comfortable emergency room. Patient had extensive work-up done including CBC, CMP, ABG chest x-ray and CT scan. I discussed lab findings with patient and . I discussed the patient with the hospitalist and recommended discharge position home since patient has been stable on room air with any acute distress. Will be discharged home on antibiotics and steroids. Medical Records Medical records narrative: PE, pneumonia, bronchitis, COPD, asthma, cataracts, pleural effusion pleurisy pericarditis Lab Data Chest x-ray reviewed no obvious acute findings. CT scan report reviewed normal acute process. 10/13/22 17:25 10/13/22 17:25 Radiology Impressions Chest X-Ray 10/13/22 17:09 IMPRESSION: 1. Multiple old healed left rib fractures. No acute fracture demonstrated. 2. There is a hiatal hernia noted. 3. The lungs are hyperinflated, consistent with COPD. 4. No acute abnormality demonstrated. 5. There is no interval change from the prior examination. Chest CTA 10/13/22 19:16 IMPRESSION: 1. No evidence of pulmonary embolism. 2. No evidence of thoracic aortic aneurysm or dissection. 3. Large hiatal hernia noted, containing a large portion of the stomach. 4. Adenopathy demonstrated in the upper abdomen. Enlarged aortocaval lymph nodes are seen measuring up to 15 mm in length. Laboratory Results WBC 10.1 10^3/uL (4.0-10.0) H 10/13/22 17:25 RBC 4.52 10^6/uL (4.1-5.3) 10/13/22 17:25 Hgb 12.5 g/dL (11.5-15.3) 10/13/22 17:25 Hct 38.8 % (37.0-47.0) 10/13/22 17:25 MCV 85.8 fl (81-99) 10/13/22 17:25 MCH 27.7 pg (28.0-34.0) L 10/13/22 17:25 MCHC 32.2 g/dL (30.0-36.0) 10/13/22 17:25 RDW 13.7 % (12.1-15.1) 10/13/22 17:25 Plt Count 482 10^3/cmm (130-400) H 10/13/22 17:25 MPV 8.8 fL (7.4-10.4) 10/13/22 17:25 Neut % (Auto) 78.2 % 10/13/22 17:25 Lymph % (Auto) 11.3 % 10/13/22 17:25 [place] % (Auto) 8.7 % 10/13/22 17:25 Eos % (Auto) 1.0 % 10/13/22 17: Baso % (Auto) 0.3 % 10/13/22 17:25 Neut # (Auto) 7.91 10^3/uL (1.8-7.7) H 10/13/22 17:25 Lymph # (Auto) 1.1 10^3/uL (0.8-4.8) 10/13/22 17:25 [place] # (Auto) 0.9 10^3/uL (0.2-0.9) 10/13/22 17: Eos # (Auto) 0.1 10^3/uL (0.0-0.8) 10/13/22 17: Baso # (Auto) 0.0 10^3/uL (0.0-0.1) 10/13/22 17: Nucleated RBC % (auto) 0 % 10/13/22: Nucleated RBCs # 0.0 /100WBC 10/13/22 17:25 Specimen Type Arterial 10/13/22 17:12 Sample Site Radial, left 10/13/22 17:12 ABG pH 7.46 (7.35-7.45) H 10/13/22 17:12 ABG pCO2 34.4 mmHg (35-45) L 10/13/22 17:12 ABG pO2 75.4 mmHg (80.0-100.0) L 10/13/22 17: ABG HCO3 24.3 mmol/L (22-26) 10/13/22 17:12 ABG Base Excess 0.8 mmol/L (-2.0-2.0) 10/13/22 17:12 Jonah Test Pos 10/13/22 17:12 Hematocrit 38.1 % (37-47) 10/13/22 17:12 Hgb O2 Saturation 94.7 % (95-100) L 10/13/22 17:12 Carboxyhemoglobin 1.2 %THgb (0.4-20.1) 10/13/22 17: Methemoglobin 0.5 % (0.4-1.5) 10/13/22 17: Total Hemoglobin 12.4 g/dL (12-16) 10/13/22 17:12 O2 Delivery Device Room air 10/13/22 17:12 FiO2 21.0 % 10/13/22 17:12 Composition Roll Maker And Cutter ID Naren 10/13/22 17:12 Sodium 132 mmol/L (136-145) L 10/13/22 17:25 Potassium 4.0 mmol/L (3.5-5.1) 10/13/22 17:25 Chloride 96 mmol/L (98-107) L 10/13/22 17:25 Carbon Dioxide 25 mmol/L (22-29) 10/13/22 17:25 Anion Gap 15.0 (5-19) 10/13/22 17:25 BUN 13 mg/dL (8-23) 10/13/22 17:25 Creatinine 1.1 mg/dL (0.5-0.9) H 10/13/22 17:25 GFR Calculation Not Reportable 10/13/22 17:25 Glucose 95 mg/dL (65-115) 10/13/22 17:25 Calculated Osmolality 274 mOsm/kg (285-295) L 10/13/22 17:25 Calcium 8.7 mg/dL (8.5-10.5) 10/13/22 17:25 Total Bilirubin 0.2 mg/dL (0.15-1.2) 10/13/22 17:25 AST 11 U/L (0-32) 10/13/22 17:25 ALT 8 U/L (0-33) 10/13/22 17:25 Alkaline Phosphatase 93 U/L (35-105) 10/13/22 17:25 NT-Pro-B Natriuret Pep 209 pg/mL (0-450) 10/13/22 17:25 Total Protein 8.4 g/dL (6.6-8.7) 10/13/22 17:25 Albumin 3.5 g/dL (3.5-5.2) 10/13/22 17:25 Globulin 4.9 g/dL (1.3-4.6) H 10/13/22 17:25 Discharge Plan Discharge Patient Disposition: Home Clinical Impression: Hypoxia, COPD (chronic obstructive pulmonary disease) with acute bronchitis Condition: Stable Prescriptions: New Medrol (Shaquille) 4 mg tablets,dose pack 4 mg PO TID Qty: 21 0RF codeine-guaifenesin 10-100 mg/5 mL liquid 5 ml PO Q4H PRN (Reason: cough) Qty: 120 0RF Zithromax Z-Shaquille 250 mg tablet 250 mg PO DAILY 6 Days Qty: 6 0RF Rx Instructions: start on day 2 of therapy ProAir HFA 90 mcg/actuation HFA aerosol inhaler 2 inh inhalation Q4H Qty: 8.5 0RF No Action amitriptyline 25 mg tablet 25 mg PO .at bedtime 90 Days Qty: 90 1RF ferrous sulfate [Iron (ferrous sulfate)] 65 mg PO DAILY fluticasone propionate [Flonase Allergy Relief] 50 mcg/actuation spray,suspension 1 spray intranasal BID Qty: 18.2 11RF Rx Instructions: administer into each nostril fexofenadine [Allergy Relief (fexofenadine)] 180 mg tablet 180 mg PO DAILY PRN (Reason: Allergy Symptoms) 90 Days Qty: 90 3RF ascorbic acid (vitamin C) [Vitamin C] 500 mg Tablet 500 mg PO DAILY calcium carbonate-vitamin D3 600 mg-5 mcg (200 unit) tablet 1 tab PO DAILY Discharge Orders: Discharge ED (Routine); Ordered 10/13/22 Ordered By: Brayan Ryder Referrals: Tk De La Torre MD [Physician] - 1-3 days Estefani Montaño MD [Primary Care Provider] - Discharge Diet: Advance as tolerated Discharge Activity: Resume usual activity Patient Instructions: Opioid Safety, Pain Management Coding Level of Care Code ED Cumulative Effects Analyst for Jeremias Blackman
== END 2022-10-13 21:37 | disposition home or self-care (01) ==
PROVIDERS: Emergency Provider Family Medicine; PCP Family Medicine
DX: J44.0 Chronic obstructive pulmonary disease with (acute) lower respiratory infection (principal); R09.02 Hypoxemia
CPT/HCPCS: 36415; 36600; 71045; 71275; 80053; 82805; 83880; 85025; 87040; 94640; 96374; 99285; J2930; Q9967

== ENCOUNTER → 2022-10-18 11:15 | Outpatient (BNVA) | payer MEDICARE, OTHER, SELFPAY | PROVIDERS: PCP Family Medicine; Visit Provider Family Medicine | DX: J20.9 Acute bronchitis, unspecified (principal); J44.0 Chronic obstructive pulmonary disease with (acute) lower respiratory infection; K44.9 Diaphragmatic hernia without obstruction or gangrene | CPT/HCPCS: 71046 ==

== ENCOUNTER 2022-10-20 10:49 | Outpatient (CLI) | payer MEDICARE, OTHER, SELFPAY | END 2022-10-20 10:50 | disposition home or self-care (01) | LOC: RT 10:50 | PROVIDERS: PCP Family Medicine; Visit Provider Family Medicine | DX: J44.0 Chronic obstructive pulmonary disease with (acute) lower respiratory infection (principal); J20.9 Acute bronchitis, unspecified | CPT/HCPCS: 94010; 94726; 94729 ==

== ENCOUNTER → 2022-11-09 08:22 | Outpatient (BNVA) | payer MEDICARE, OTHER, SELFPAY | PROVIDERS: PCP Family Medicine; Visit Provider Surgery | DX: K44.9 Diaphragmatic hernia without obstruction or gangrene (principal); K29.90 Gastroduodenitis, unspecified, without bleeding | CPT/HCPCS: 99204; 99214 ==

== ENCOUNTER 2022-11-10 10:05 | Outpatient (CLI) | payer MEDICARE, OTHER, SELFPAY ==
--- NOTE | 2022-11-10 | FL_ITS ---
WS: [id number] FL barium swallow modifd [id number] REASON FOR EXAM: Other dysphagia FLUOROSCOPY TIME: 2min [id number] # OF SPOT FILMS: None FINDINGS: None procedure was supervised by the speech therapy department. Patient was examined in the sitting upright position. The lateral projection. The swallowing of varying consistencies of barium was monitored fluoroscopically and video recorded. Detailed analysis and report of the swallowing will be rendered by the speech therapy department. IMPRESSION: Modified barium swallow as above.
== END 2022-11-10 10:06 | disposition home or self-care (01) ==
PROVIDERS: PCP Family Medicine; Visit Provider Family Medicine
DX: R13.19 Other dysphagia (principal)
CPT/HCPCS: 74230; 92611

== ENCOUNTER → 2022-12-20 09:52 | Outpatient (BNVA) | payer MEDICARE, OTHER, SELFPAY | PROVIDERS: PCP Family Medicine; Visit Provider Internal Medicine Pulmonary Disease | DX: J30.2 Other seasonal allergic rhinitis (principal); R05.3 Chronic cough; K44.9 Diaphragmatic hernia without obstruction or gangrene | CPT/HCPCS: 99204 ==

== ENCOUNTER → 2023-01-06 10:44 | Outpatient (BNVA) | payer MEDICARE, OTHER, SELFPAY | PROVIDERS: PCP Family Medicine; Visit Provider Family Medicine | DX: R05.3 Chronic cough (principal); R74.8 Abnormal levels of other serum enzymes; E87.1 Hypo-osmolality and hyponatremia; E78.2 Mixed hyperlipidemia | CPT/HCPCS: 80048; 80061 ==

== ENCOUNTER 2023-06-11 22:35 | Emergency (ER) | payer MEDICARE, OTHER, SELFPAY ==
[2023-06-11 22:37] VITALS: BP 112/76; PULSE 100; RESP 18; TEMP 36.3; O2SAT 99
--- NOTE | 2023-06-11 23:13 | XRR_ITS ---
PROCEDURE INFORMATION: Exam: XR Thoracic Spine Exam date and time: 06/11/2023 11:35 PM Age: 77 years old Clinical indication: Pain in thoracic spine; Patient HX: Persistent back pain x 1 week. No injury. ; Additional info: Mid back pain TECHNIQUE: Imaging protocol: Radiologic exam of the thoracic spine. Views: 3 views. COMPARISON: CR (PELVIS, ) 06/11/2023 11:35 PM FINDINGS: Bones/joints: No thoracic spine fracture or listhesis. Old healed fracture deformities of the left 3rd, 4th, 5th and 6th ribs and old non fused fracture of the left 7th rib. Soft tissues: Unremarkable. XR/XR thoracic spine 3V* [id number] IMPRESSION: 1. No thoracic spine fracture or listhesis. 2. Old healed fracture deformities of the left 3rd, 4th, 5th and 6th ribs and old non fused fracture of the left 7th rib.
--- NOTE | 2023-06-11 23:13 | XRR_ITS ---
PROCEDURE INFORMATION: Exam: XR Lumbosacral Spine Exam date and time: 06/11/2023 11:35 PM Age: 77 years old Clinical indication: Low back pain; Patient HX: Persistent back pain x 1 week. No injury. TECHNIQUE: Imaging protocol: Radiologic exam of the lumbosacral spine. Views: 2 or 3 views. COMPARISON: CR XR lumbar spine 2-3V* [id number] 07/13/2022 9:14 AM FINDINGS: Bones/joints: Severe degenerative disc disease with associated endplate changes at L4-L5 and L5-S1. 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 Soft tissues: Unremarkable. XR/XR lumbar spine 2-3V* [id number] IMPRESSION: 1. Severe degenerative disc disease with associated endplate changes at L4-L5 and L5-S1. 2. 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
--- NOTE | 2023-06-11 23:30 | ED_ITS ---
Documented by User: ETHAN Mohr 06/12/23 00:51 HPI - Back Pain/Injury General: Chief Complaint: Back Pain/Injury Stated Complaint: Lower back pain Time Seen by Provider: 06/11/23 22:46 Source: patient Mode of arrival: ambulatory Limitations: no limitations History of Present Illness: Patient is 77-year-old female presents to the emergency department complaining of right back pain onset 1 week. Patient states when the pain started, she was not doing anything strenuous aside from vigorous coughing from her history of allergies. Though, she denies noting any sudden onset of pain following a coughing episode. She denies any previous history of back surgeries, though states many years ago she fell off a horse and had multiple posterior rib fractures, per patient. She currently states that she cannot get comfortable due to the pain and has not had relief from half a cyclobenzaprine pill or any [id number] remedies such as ice/heat. She denies any bowel/bladder incontinence, midline spinous tenderness, lower extremity numbness/weakness, saddle anesthesia, fevers, or any other concerning symptoms. Patient denies any urinary symptoms. MD elicited complaint: back pain Onset (ago): week(s) (1) Timing: constant Location: right lower back Radiation: none Exacerbating factors: movement Relieving factors: none Associated symptoms: Reports no associated symptoms; Deny abdominal pain, chills, dysuria, fatigue, fever(s), nausea or vomiting Work related injury: No Review of Systems General: Reports: 10 or more systems reviewed and unremarkable except in HPI and below Const: Denies: fever(s), chills or fatigue Eyes: Denies: change in vision ENMT: Denies: throat pain, ear or mastoid pain or nasal discharge Card: Denies: chest pain, palpitations, swelling of feet/ankles or lightheadedness Resp: Denies: dyspnea, productive cough or wheezing GI: Denies: abdominal pain, nausea, vomiting, diarrhea or constipation : Denies: flank pain, difficulty voiding, dysuria or urinary frequency Musc: Reports: back pain; Denies: neck pain, extremity pain, extremity swelling or joint pain Skin/Breast: Denies: rash Neuro: Denies: headache(s), numbness in extremities or weakness in extremities PFS ED PFSH: Medical History GI bleed If continues to be of concern about GI to be a source of patient's anemia a capsule endoscopy would be the next step. Chronic dental infection Insomnia Fibromyalgia Chronic pain syndrome Chronic GERD Surgical History History of colonoscopy H/O knee surgery H/O: hysterectomy Family History Mother Cancer Lung Cancer Father Cancer Lung Cancer Hypertension Social History Smoking and tobacco/nicotine status: never used tobacco/nicotine Second hand smoke exposure: No Alcohol intake: never Substance/Drug Use: never Female Reproductive History: Spontaneous abortions: No Physical Exam Const: COMMON NORMALS: no acute distress, patient oriented x3 and no l imitations GENERAL APPEARANCE: cooperative, comfortable and well developed ORIENTATION/CONSCIOUSNESS: Yes awake, Yes oriented to person, Yes oriented to place and Yes oriented to time HENMT: COMMON NORMALS: normocephalic, atraumatic and hearing grossly normal bilaterally HEAD & SCALP: normocephalic and atraumatic Eye: COMMON NORMALS: EOMs intact bilaterally and conjunctivae normal CONJUNCTIVA: Yes conjunctivae normal Neck/C-Spine: COMMON NORMALS: full ROM Resp: COMMON NORMALS: normal respiratory effort, No retractions, No use of accessory muscles and clear to auscultation bilaterally AUSCULTATION: clear to auscultation bilaterally Cardio: COMMON NORMALS: regular rate, regular rhythm, No clicks present (Cardio), No murmurs present (Cardio) and No rub (Cardio) RATE: regular rate RHYTHM: regular rhythm : COMMON NORMALS: Yes no CVA tenderness BLADDER/KIDNEY EXAM: Yes no CVA tenderness Back/Pelvis: COMMON NORMALS: no CVA tenderness and thoracic and lumbar spine normal to inspection THORACIC SPINE/UPPER BACK: Yes normal to inspection, Yes pain with ROM and Yes paraspinal muscle tenderness Thoracic paraspinal muscle tenderness: right LUMBAR SPINE/LOWER BACK: Yes normal to inspection, Yes pain with ROM and Yes paraspinal muscle tenderness Lumbar paraspinal muscle tenderness: right Extremity: COMMON NORMALS: normal to inspection, full ROM and capillary refill normal Neuro: COMMON NORMALS: patient oriented x3, moves all extremities, no focal motor deficits and no sensory deficits noted SENSORIUM/ORIENTATION: Yes oriented to person, Yes oriented to place and Yes oriented to time Psych: COMMON NORMALS: mental status grossly normal and Normal thought process present THOUGHT PROCESS: Normal thought process present Skin: COMMON NORMALS: no rashes or lesions noted GENERAL SKIN EXAM: no rashes or lesions noted Course Vital Signs: Vital signs: Vital Signs Temperature 97.4 F L 06/11/23 22:37 Pulse Rate 84 06/12/23 00:58 Respiratory Rate 14 06/12/23 00:58 Blood Pressure 123/79 06/12/23 00:58 Pulse Oximetry 95 06/12/23 00:58 Oxygen Delivery Me thod Room Air 06/11/23 23:45 MDM - Back Pain/Injury Medical Decision Making Patient seen and evaluated in the emergency department today for approximately 1 week of right low back pain. Patient's history of posterior left rib fractures, no other back surgeries or prior injury to her she is currently feeling pain. Examination patient is uncomfortable appearing due to the pain she states she cannot get in any position that alleviates it. X-rays of the thoracic and lumbar spine negative for any acute findings. Norflex as well as p.o. acetaminophen. On recheck, patient states she initially was feeling better but now is having more bouts of shooting pain. Will order a UA for evaluation of any preliminary kidney/ureter stone signs, with the UA being essentially unremarkable. Following the patient she is most likely dealing with a musculoskeletal back strain and I will prescribe her muscle relaxer to take as needed along with prescription strength Tylenol. Told her to follow-up with her primary care next week if she is still having pain. Otherwise patient discharged home. Patient agrees. Labs Radiology Impressions Lumbar Spine X-Ray 06/11/23 23:13 IMPRESSION: 1. Severe degenerative disc disease with associated endplate changes at L4-L5 and L5-S1. 2. 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 Thoracic Spine X-Ray 06/11/23 23:13 IMPRESSION: 1. No thoracic spine fracture or listhesis. 2. Old healed fracture deformities of the left 3rd, 4th, 5th and 6th ribs and old non fused fracture of the left 7th rib. Laboratory Results Urine Color Dark yellow (Yellow) 06/11/23 23:48 Urine Appearance Cloudy (CLEAR) A 06/11/23 23:48 Urine pH 8 (5-7) H 06/11/23 23:48 Ur Specific [place] 1.010 (1.005-1.030) 06/11/23 23:48 Urine Protein Neg (Negative) 06/11/23 23:48 Urine Glucose (UA) Norm (Normal) 06/11/23 23:48 Urine Ketones Negative (Negative) 06/11/23 23:48 Urine Blood Neg (Negative) 06/11/23 23:48 Urine Nitrate Negative (Negative) 06/11/23 23:48 Urine Bilirubin Neg (Negative) 06/11/23 23:48 Prot Sulfosalicylic Acd Negative (Negative) 06/11/23 23:48 Urine Urobilinogen Neg mg/dL (Negative) 06/11/23 23:48 Ur Leukocyte Esterase Negative (Negative) 06/11/23 23:48 Urine RBC 0-4 /hpf (0-2) H 06/11/23 23:48 Urine WBC 0-4 /hpf (0-5) H 06/11/23 23:48 Ur Squamous Epith Cells 0-4 /hpf (0-5) H 06/11/23 23:48 Amorphous Sediment 1+ /hpf 06/11/23 23:48 Urine Bacteria 1+ /hpf (NONE) H 06/11/23 23:48 Urine Mucus Trace /hpf 06/11/23 23:48 All radiology interpretation(s) finalized by discharge Discharge Plan Discharge Patient Disposition: Home Clinical Impression: Low back pain Qualifiers: Chronicity: acute Back pain laterality: right Sciatica presence: without sciatica Qualified Code(s): M54.50 - Low back pain, unspecified Condition: Stable Prescriptions: New cyclobenzaprine 10 mg tablet 10 mg PO TID Qty: 30 0RF acetaminophen 500 mg tablet 1,000 mg PO Q6H PRN (Reason: pain) Qty: 60 0RF No Action prednisone 10 mg tablet 10 mg PO DAILY 5 Days Qty: 5 0RF Rx Instructions: start this medicine on Tuesday. ferrous sulfate [Iron (ferrous sulfate)] 65 mg PO DAILY fexofenadine [Allergy Relief (fexofenadine)] 180 mg tablet 180 mg PO DAILY PRN (Reason: Allergy Symptoms) 90 Days Qty: 90 3RF pantoprazole 40 mg tablet,delayed release (DR/EC) 40 mg PO DAILY Qty: 90 1RF Rx Instructions: Take one tablet daily fluticasone propionate 50 mcg/actuation spray,suspension See Rx Instructions .ROUTE .COMPLEX Qty: 48 2RF Dose Instruction: USE 1 SPRAY IN EACH NOSTRIL TWICE DAILY Rx Instructions: USE 1 SPRAY IN EACH NOSTRIL TWICE DAILY ascorbic acid (vitamin C) [Vitamin C] 500 mg Tablet 500 mg PO DAILY calcium carbonate-vitamin D3 600 mg-5 mcg (200 unit) tablet 1 tab PO DAILY Discharge Orders: Discharge ED (Routine); Ordered 06/12/23 Ordered By: Liam Cooper Referrals: Estefani Montaño MD [Primary Care Provider] - Discharge Diet: Usual diet Discharge Activity: Increase activity as tolerated Patient Instructions: Acute Low Back Pain (ED) Activity Restrictions/Additional Instructions: Take cyclobenzaprine as prescribed. Tylenol as directed. Ice/heat as needed. Gentle range of motion exercises as tolerated. Please follow-up with your primary care provider next week. Return with any new concerning symptoms. Coding Level of Care Code ED Delivery Table Operator for Chg Fwd Documented by User: Madhu Terrazas DO 06/13/23 11:34 HPI - Back Pain/Injury General: Chief Complaint: Back Pain/Injury Stated Complaint: Lower back pain Time Seen by Provider: 06/11/23 22:46 PFSH ED PFSH: Medical History GI bleed If continues to be of concern about GI to be a source of patient's anemia a capsule endoscopy would be the next step. Chronic dental infection Insomnia Fibromyalgia Chronic pain syndrome Chronic GERD Surgical History History of colonoscopy H/O knee surgery H/O: hysterectomy Family History Mother Cancer Lung Cancer Father Cancer Lung Cancer Hypertension Social History Smoking and tobacco/nicotine status: never used tobacco/nicotine Second hand smoke exposure: No Alcohol intake: never Substance/Drug Use: never Course Vital Signs: Vital signs: Vital Signs Temperature 97.4 F L 06/11/23 22:37 Pulse Rate 84 06/12/23 00:58 Respiratory Rate 14 06/12/23 00:58 Blood Pressure 123/79 06/12/23 00:58 Pulse Oximetry 95 06/12/23 00:58 Oxygen Delivery Me thod Room Air 06/11/23 23:45 MDM - Back Pain/Injury Medical Decision Making Patient seen and evaluated in the emergency department today for approximately 1 week of right low back pain. Patient's history of posterior left rib fractures, no other back surgeries or prior injury to her she is currently feeling pain. Examination patient is uncomfortable appearing due to the pain she states she cannot get in any position that alleviates it. X-rays of the thoracic and lumbar spine negative for any acute findings. Norflex as well as p.o. ac etaminophen. On recheck, patient states she initially was feeling better but now is having more bouts of shooting pain. Will order a UA for evaluation of any preliminary kidney/ureter stone signs, with the UA being essentially unremarkable. Following the patient she is most likely dealing with a musculoskeletal back strain and I will prescribe her muscle relaxer to take as needed along with prescription strength Tylenol. Told her to follow-up with her primary care next week if she is still having pain. Otherwise patient discharged home. Patient agrees. Chart reviewed Labs Radiology Impressions Lumbar Spine X-Ray 06/11/23 23:13 IMPRESSION: 1. Severe degenerative disc disease with associated endplate changes at L4-L5 and L5-S1. 2. 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 Thoracic Spine X-Ray 06/11/23 23:13 IMPRESSION: 1. No thoracic spine fracture or listhesis. 2. Old healed fracture deformities of the left 3rd, 4th, 5th and 6th ribs and old non fused fracture of the left 7th rib. Laboratory Results Urine Color Dark yellow (Yellow) 06/11/23 23:48 Urine Appearance Cloudy (CLEAR) A 06/11/23 23:48 Urine pH 8 (5-7) H 06/11/23 23:48 Ur Specific [place] 1.010 (1.005-1.030) 06/11/23 23:48 Urine Protein Neg (Negative) 06/11/23 23:48 Urine Glucose (UA) Norm (Normal) 06/11/23 23:48 Urine Ketones Negative (Negative) 06/11/23 23:48 Urine Blood Neg (Negative) 06/11/23 23:48 Urine Nitrate Negative (Negative) 06/11/23 23:48 Urine Bilirubin Neg (Negative) 06/11/23 23:48 Prot Sulfosalicylic Acd Negative (Negative) 06/11/23 23:48 Urine Urobilinogen Neg mg/dL (Negative) 06/11/23 23:48 Ur Leukocyte Esterase Negative (Negative) 06/11/23 23:48 Urine RBC 0-4 /hpf (0-2) H 06/11/23 23:48 Urine WBC 0-4 /hpf (0-5) H 06/11/23 23:48 Ur Squamous Epith Cells 0-4 /hpf (0-5) H 06/11/23 23:48 Amorphous Sediment 1+ /hpf 06/11/23 23:48 Urine Bacteria 1+ /hpf (NONE) H 06/11/23 23:48 Urine Mucus Trace /hpf 06/11/23 23:48 Discharge Plan Discharge Patient Disposition: Home Clinical Impression: Low back pain Qualifiers: Chronicity: acute Back pain laterality: right Sciatica presence: without sciatica Qualified Code(s): M54.50 - Low back pain, unspecified Condition: Stable Prescriptions: New cyclobenzaprine 10 mg tablet 10 mg PO TID Qty: 30 0RF acetaminophen 500 mg tablet 1,000 mg PO Q6H PRN (Reason: pain) Qty: 60 0RF No Action prednisone 10 mg tablet 10 mg PO DAILY 5 Days Qty: 5 0RF Rx Instructions: start this medicine on Tuesday. ferrous sulfate [Iron (ferrous sulfate)] 65 mg PO DAILY fexofenadine [Allergy Relief (fexofenadine)] 180 mg tablet 180 mg PO DAILY PRN (Reason: Allergy Symptoms) 90 Days Qty: 90 3RF pantoprazole 40 mg tablet,delayed release (DR/EC) 40 mg PO DAILY Qty: 90 1RF Rx Instructions: Take one tablet daily fluticasone propionate 50 mcg/actuation spray,suspension See Rx Instructions .ROUTE .COMPLEX Qty: 48 2RF Dose Instruction: USE 1 SPRAY IN EACH NOSTRIL TWICE DAILY Rx Instructions: USE 1 SPRAY IN EACH NOSTRIL TWICE DAILY ascorbic acid (vitamin C) [Vitamin C] 500 mg Tablet 500 mg PO DAILY calcium carbonate-vitamin D3 600 mg-5 mcg (200 unit) tablet 1 tab PO DAILY Discharge Orders: Discharge ED (Routine); Ordered 06/12/23 Ordered By: Liam Cooper Referrals: Estefani Montaño MD [Primary Care Provider] - Discharge Diet: Usual diet Discharge Activity: Increase activity as tolerated Patient Instructions: Acute Low Back Pain (ED) Activity Restrictions/Additional Instructions: Take cyclobenzaprine as prescribed. Tylenol as directed. Ice/heat as needed. Gentle range of motion exercises as tolerated. Please follow-up with your primary care provider next week. Return with any new concerning symptoms. Coding Level of Care Code ED Delivery Table Operator for Jeremias Blackman
[2023-06-11 23:45] VITALS: BP 118/65; PULSE 91; RESP 18; O2SAT 98
[2023-06-11] MEDS: acetaminophen 500 mg Tablet 1000 MG PO (23:49)
[2023-06-11] MEDS: orphenadrine 30 mg/mL Inj 2 mL 60 MG IM (23:50)
[2023-06-12 00:21] LABS: Add Urine Microscopic? YES; Amorphous Sediment Urine 1+ /hpf; Bacteria Urine 1+ /hpf; Bilirubin Urine Neg (Negative); Blood Urine Neg (Negative); Glucose Urine UA Norm (Normal); Ketones Urine Negative (Negative); Leukocyte Esterase Urine Negative (Negative); Mucus Urine TRACE /hpf; Nitrate Urine Negative (Negative); Protein Urine Neg (Negative); RBC Urine 0-4 /hpf (0-2); Squamous Epithelial Cell Urine 0-4 /hpf (0-5); Sulfosalicylic Acid Urine Negative (Negative); Urine Appearance Cloudy (CLEAR); Urine Color Dark Yellow (Yellow); Urobilinogen Urine Neg (Negative); WBC Urine 0-4 /hpf (0-5); pH Urine 8 (5-7)
[2023-06-12 00:58] VITALS: BP 123/79; PULSE 84; RESP 14; O2SAT 95
== END 2023-06-12 01:00 | disposition home or self-care (01) ==
PROVIDERS: Emergency Provider Physician Assistant; PCP Family Medicine
DX: M54.50 Low back pain, unspecified (principal)
CPT/HCPCS: 72072; 72100; 81001; 96372; 99284; J2360

== ENCOUNTER → 2023-06-15 15:57 | Outpatient (BNVA) | payer MEDICARE, OTHER, SELFPAY | PROVIDERS: PCP Family Medicine; Visit Provider Nurse Practitioner | DX: M54.9 Dorsalgia, unspecified (principal); M47.896 Other spondylosis, lumbar region | CPT/HCPCS: 74018; 81000 ==

== ENCOUNTER 2023-06-18 17:18 | Inpatient (IN) | payer MEDICARE, OTHER, SELFPAY ==
[2023-06-18] VITALS (25 sets, daily range): BP systolic 104–138; BP diastolic 68–98; PULSE 86–102; RESP 13–23; TEMP 36.4–37; O2SAT 95–100; BMI 22.8
[2023-06-18 17:51] LABS: Basophils % 0.2 %; Eosinophils % 0.2 %; Hematocrit 39.6 % (36-47); Lymphocytes # 0.8 10^3/uL (0.8-4.8); Lymphocytes % 8.6 %; Mean Corpuscular HGB Conc 33.8 g/dL (30-55); Mean Corpuscular Hemoglobin 25.7 pg (27-33); Mean Platelet Volume 9.4 fL (7.4-10.4); Monocytes # 1.5 10^3/uL (0.2-0.9); Monocytes % 16.4 %; Neutrophils # 6.92 10^3/uL (1.8-7.7); Neutrophils % 73.9 %; Nucleated Red Blood Cells % 0 %; Platelet Count 261 10^3/cmm (157-399); Red Blood Count 5.21 10^6/uL (3.85-5.65); Red Cell Distribution Width 15.9 % (12.1-15.1); White Blood Count 9.38 10^3/uL (3.29-11.43)
--- NOTE | 2023-06-18 17:55 | ED_ITS ---
Documented by User: Madhu Terrazas DO 06/18/23 18:03 HPI - Back Pain/Injury 2 General: Chief Complaint: Back Pain/Injury Stated Complaint: back pain, no drink or eat, no bowel movement Time Seen by Provider: 06/18/23 17:27 Source: patient Mode of arrival: ambulatory History of Present Illness: 77-year-old female presents emergency ro om complaining of low back pain has been going on for couple of weeks now. No saddle paresthesias no urinary retention no fecal incontinence she has been constipated. She states this initially began after she had been coughing she felt like she pulled a muscle in her back she has been seen a couple of times where she has no radicular symptoms associated with that. She denies any fever sweats chills dysuria urgency or frequency or hematuria. No chest pain or shortness of breath at this point. She recently had a Faby fundoplication has been very nauseated but not been able to vomit has not been able to eat or drink because of the pain just feels too uncomfortable. MD elicited complaint: back pain Pertinent past history: prior back pain Onset (ago): day(s) Timing: constant Severity: severe Similar Symptoms Previously: Yes Quality: sharp Location: lumbar spine Radiation: none Exacerbating factors: none Relieving factors: none Associated symptoms: Reports change in bowel habits (Constipation) and nausea; Deny chills, difficulty walking, dysuria, fecal incontinence, fever(s), urinary frequency, urinary urgency or vomiting Review of Systems 2 Const: Denies: fever(s) or chills Card: Denies: chest pain Resp: Denies: dyspnea GI: Reports: nausea and change in bowel habits (Constipation); Denies: vomiting or fecal incontinence : Denies: dysuria or urinary urgency Musc: Denies: neck pain or back pain Skin/Breast: Denies: rash Neuro: Denies: difficulty walking PFSH ED 2 PFSH: Medical History GI bleed If continues to be of concern about GI to be a source of patient's anemia a capsule endoscopy would be the next step. Chronic dental infection Insomnia Fibromyalgia Chronic pain syndrome Chronic GERD Surgical History History of colonoscopy H/O knee surgery H/O: hysterectomy Family History Mother Cancer Lung Cancer Father Cancer Lung Cancer Hypertension Social History Smoking and tobacco/nicotine status: never used tobacco/nicotine Second hand smoke exposure: No Alcohol intake: never Substance/Drug Use: never Female Reproductive History: Spontaneous abortions: No Physical Exam 2 Const: GENERAL APPEARANCE: cooperative ORIENTATION/CONSCIOUSNESS: Yes awake, Yes oriented to person, Yes oriented to place and Yes oriented to time HENMT: COMMON NORMALS: normocephalic, atraumatic and hearing grossly normal bilaterally HEAD & SCALP: normocephalic and atraumatic Resp: COMMON NORMALS: normal respiratory effort, No retractions, No use of accessory muscles and clear to auscultation bilaterally AUSCULTATION: clear to auscultation bilaterally Cardio: COMMON NORMALS: regular rate, regular rhythm and No murmurs present (Cardio) RATE: regular rate RHYTHM: regular rhythm GI: COMMON NORMALS: Soft to palpation and No hepatosplenomegaly present A USCULTATION: Yes normoactive bowel sounds PALPATION: Yes Soft to palpation, No Tenderness to palpation present (GI), No Guarding due to palpation present (GI) and Yes No hepatosplenomegaly present Extremity: COMMON NORMALS: normal to inspection, capillary refill normal, no clubbing, cyanosis or edema, no calf tenderness and no pedal edema Neuro: SENSORIUM/ORIENTATION: Yes oriented to person, Yes oriented to place and Yes oriented to time Skin: COMMON NORMALS: no rashes or lesions noted GENERAL SKIN EXAM: no rashes or lesions noted Course 2 Vital Signs: Vital signs: Vital Signs Temperature 97.6 F 06/18/23 17:26 Pulse Rate 90 06/18/23 20:15 Respiratory Rate 18 06/18/23 20:15 Blood Pressure 120/68 06/18/23 20:15 Pulse Oximetry 100 06/18/23 20:15 Oxygen Delivery Me thod Nasal Cannula 06/18/23 20:15 Oxygen Flow Rate 2 06/18/23 20:15 MDM - Back Pain/Injury Medical Decision Making Care signed out to Dr. Ayers at change of shift. See final notes for diagnosis and disposition. Labs 06/18/23 17:45 06/18/23 17:45 Radiology Impressions Abdomen/Pelvis CT 06/18/23 17:55 IMPRESSION: 1. Mesenteric and retroperitoneal lymphadenopathy raises concern for lymphoma. CT scan abdomen/pelvis with IV contrast recommended for further evaluation. 2. Small bilateral pleural effusions with adjacent compressive atelectasis. 3. Mildly nodular liver contour raises concern for cirrhosis. 4. There is a moderate amount of free intraperitoneal fluid/ascites in the abdomen/pelvis. 5. Colonic constipation is present. Laboratory Results WBC 9.38 10^3/uL (3.29-11.43) 06/18/23 17:45 RBC 5.21 10^6/uL (3.85-5.65) 06/18/23 17:45 Hgb 13.40 g/dL (11.27-16.99) 06/18/23 17:45 Hct 39.6 % (36-47) 06/18/23 17:45 MCV 76.0 fl (85-98) L 06/18/23 17:45 MCH 25.7 pg (27-33) L 06/18/23 17:45 MCHC 33.8 g/dL (30-55) 06/18/23 17:45 RDW 15.9 % (12.1-15.1) H 06/18/23 17:45 Plt Count 261 10^3/cmm (157-399) 06/18/23 17:45 MPV 9.4 fL (7.4-10.4) 06/18/23 17:45 Neut % (Auto) 73.9 % 06/18/23 17:45 Lymph % (Auto) 8.6 % 06/18/23 17:45 [place] % (Auto) 16.4 % 06/18/23 17:45 Eos % (Auto) 0.2 % 06/18/23 17:45 Baso % (Auto) 0.2 % 06/18/23 17:45 Neut # (Auto) 6.92 10^3/uL (1.8-7.7) 06/18/23 17:45 Lymph # (Auto) 0.8 10^3/uL (0.8-4.8) 06/18/23 17:45 Williamson # (Auto) 1.5 10^3/uL (0.2-0.9) H 06/18/23 17:45 Eos # (Auto) 0.0 10^3/uL (0.0-0.8) 06/18/23 17:45 Baso # (Auto) 0.0 10^3/uL (0.0-0.1) 06/18/23 17:45 Nucleated RBC % (auto) 0 % 06/18/23 17:45 Nucleated RBCs # 0.0 /100WBC 06/18/23 17:45 Sodium 119 mmol/L (136-145) L* 06/18/23 17:45 Potassium 5.2 mmol/L (3.5-5.1) H 06/18/23 17:45 Chloride 84 mmol/L (98-107) L 06/18/23 17:45 Carbon Dioxide 24 mmol/L (22-29) 06/18/23 17:45 Anion Gap 16.2 (5-19) 06/18/23 17:45 BUN 24 mg/dL (8-23) H 06/18/23 17:45 Creatinine 1.1 mg/dL (0.5-0.9) H 06/18/23 17:45 GFR Calculation Not Reportable 06/18/23 17:45 Glucose 100 mg/dL (65-115) 06/18/23 17:45 Calculated Osmolality 252 mOsm/kg (285-295) L 06/18/23 17:45 Calcium 9.1 mg/dL (8.5-10.5) 06/18/23 17:45 Total Bilirubin 0.4 mg/dL (0.15-1.2) 06/18/23 17:45 AST 15 U/L (0-32) 06/18/23 17:45 ALT 7 U/L (0-33) 06/18/23 17:45 Alkaline Phosphatase 108 U/L (35-105) H 06/18/23 17:45 Total Protein 7.8 g/dL (6.6-8.7) 06/18/23 17:45 Albumin 3.3 g/dL (3.5-5.2) L 06/18/23 17:45 Globulin 4.5 g/dL (1.3-4.6) 06/18/23 17:45 Urine Color Yellow (Yellow) 06/18/23 19:14 Urine Appearance Clear (CLEAR) 06/18/23 19:14 Urine pH 6.5 (5-7) 06/18/23 19:14 Ur Specific [place] 1.010 (1.005-1.030) 06/18/23 19:14 Urine Protein Trace (Negative) 06/18/23 19:14 Urine Glucose (UA) Norm (Normal) 06/18/23 19:14 Urine Ketones 1+ (Negative) H 06/18/23 19:14 Urine Blood 2+ (Negative) H 06/18/23 19:14 Urine Nitrate Negative (Negative) 06/18/23 19:14 Urine Bilirubin 1+ (Negative) H 06/18/23 19:14 Urine Urobilinogen Neg mg/dL (Negative) 06/18/23 19:14 Ur Leukocyte Esterase Trace (Negative) H 06/18/23 19:14 Urine RBC 5-10 /hpf (0-2) H 06/18/23 19:14 Urine WBC 5-10 /hpf (0-5) H 06/18/23 19:14 Ur Squamous Epith Cells 0-4 /hpf (0-5) H 06/18/23 19:14 Amorphous Sediment 1+ /hpf 06/18/23 19:14 Urine Bacteria 1+ /hpf (NONE) H 06/18/23 19:14 Hyaline Casts 0-4 /lpf H 06/18/23 19:14 RBC Casts 0-4 /lpf 06/18/23 19:14 Urine Mucus 2+ /hpf 06/18/23 19:14 XR interpretation done by ED provider, pending radiology final review Discharge Plan Discharge Patient Disposition: Admitted As Inpatient Clinical Impression: Acute hyponatremia, Abdominal ascites Condition: Fair Coding Level of Care Code ED Route Rider Supervisor for Chg Fwd Documented by User: Jaskaran Ayers DO 06/18/23 21:09 HPI - Back Pain/Injury 2 General: Chief Complaint: Back Pain/Injury Stated Complaint: back pain, no drink or eat, no bowel movement Time Seen by Provider: 06/18/23 17:27 [facility] ED 2 PFSH: Medical History GI bleed If continues to be of concern about GI to be a source of patient's anemia a capsule endoscopy would be the next step. Chronic dental infection Insomnia Fibromyalgia Chronic pain syndrome Chronic GERD Surgical History History of colonoscopy H/O knee surgery H/O: hysterectomy Family History Mother Cancer Lung Cancer Father Cancer Lung Cancer Hypertension Social History Smoking and tobacco/nicotine status: never used tobacco/nicotine Second hand smoke exposure: No Alcohol intake: never Substance/Drug Use: never Course 2 Vital Signs: Vital signs: Vital Signs Temperature 97.6 F 06/18/23 17:26 Pulse Rate 90 06/18/23 20:15 Respiratory Rate 18 06/18/23 20:15 Blood Pressure 120/68 06/18/23 20:15 Pulse Oximetry 100 06/18/23 20:15 Oxygen Delivery Me thod Nasal Cannula 06/18/23 20:15 Oxygen Flow Rate 2 06/18/23 20:15 MDM - Back Pain/Injury Medical Decision Making Care signed out to Dr. Ayers at change of shift. See final notes for diagnosis and disposition. 77-year-old female checked out to me at shift change by Dr. Wright. This lady's back pain is improved after morphine. She was given Decadron and Norflex as well which has helped to some degree. Her creatinine is 1.1. Her potassium is 5.2. Sodium is 119. She has been having some confusion at home per her , and generalized weakness as well. CT performed due to continued back pain shows colonic constipation. It also shows moderate amount of free fluid in the abdomen, with a significant amount in the pelvis posterior to the bladder. No bony metastases are noted. She does have retroperitoneal lymphadenopathy. CT with IV contrast is suggested. She will need treatment for her significant hyponatremia which appears to be new. She is started on fluids here. We have a call out to the hospitalist for potential admission. Labs 06/18/23 17:45 06/18/23 17:45 Radiology Impressions Abdomen/Pelvis CT 06/18/23 17:55 IMPRESSION: 1. Mesenteric and retroperitoneal lymphadenopathy raises concern for lymphoma. CT scan abdomen/pelvis with IV contrast recommended for further evaluation. 2. Small bilateral pleural effusions with adjacent compressive atelectasis. 3. Mildly nodular liver contour raises concern for cirrhosis. 4. There is a moderate amount of free intraperitoneal fluid/ascites in the abdomen/pelvis. 5. Colonic constipation is present. Laboratory Results WBC 9.38 10^3/uL (3.29-11.43) 06/18/23 17:45 RBC 5.21 10^6/uL (3.85-5.65) 06/18/23 17:45 Hgb 13.40 g/dL (11.27-16.99) 06/18/23 17:45 Hct 39.6 % (36-47) 06/18/23 17:45 MCV 76.0 fl (85-98) L 06/18/23 17:45 MCH 25.7 pg (27-33) L 06/18/23 17:45 MCHC 33.8 g/dL (30-55) 06/18/23 17:45 RDW 15.9 % (12.1-15.1) H 06/18/23 17:45 Plt Count 261 10^3/cmm (157-399) 06/18/23 17:45 MPV 9.4 fL (7.4-10.4) 06/18/23 17:45 Neut % (Auto) 73.9 % 06/18/23 17:45 Lymph % (Auto) 8.6 % 06/18/23 17:45 Williamson % (Auto) 16.4 % 06/18/23 17:45 Eos % (Auto) 0.2 % 06/18/23 17:45 Baso % (Auto) 0.2 % 06/18/23 17:45 Neut # (Auto) 6.92 10^3/uL (1.8-7.7) 06/18/23 17:45 Lymph # (Auto) 0.8 10^3/uL (0.8-4.8) 06/18/23 17:45 Williamson # (Auto) 1.5 10^3/uL (0.2-0.9) H 06/18/23 17:45 Eos # (Auto) 0.0 10^3/uL (0.0-0.8) 06/18/23 17:45 Baso # (Auto) 0.0 10^3/uL (0.0-0.1) 06/18/23 17:45 Nucleated RBC % (auto) 0 % 06/18/23 17:45 Nucleated RBCs # 0.0 /100WBC 06/18/23 17:45 Sodium 119 mmol/L (136-145) L* 06/18/23 17:45 Potassium 5.2 mmol/L (3.5-5.1) H 06/18/23 17:45 Chloride 84 mmol/L (98-107) L 06/18/23 17:45 Carbon Dioxide 24 mmol/L (22-29) 06/18/23 17:45 Anion Gap 16.2 (5-19) 06/18/23 17:45 BUN 24 mg/dL (8-23) H 06/18/23 17:45 Creatinine 1.1 mg/dL (0.5-0.9) H 06/18/23 17:45 GFR Calculation Not Reportable 06/18/23 17:45 Glucose 100 mg/dL (65-115) 06/18/23 17:45 Calculated Osmolality 252 mOsm/kg (285-295) L 06/18/23 17:45 Calcium 9.1 mg/dL (8.5-10.5) 06/18/23 17:45 Total Bilirubin 0.4 mg/dL (0.15-1.2) 06/18/23 17:45 AST 15 U/L (0-32) 06/18/23 17:45 ALT 7 U/L (0-33) 06/18/23 17:45 Alkaline Phosphatase 108 U/L (35-105) H 06/18/23 17:45 Total Protein 7.8 g/dL (6.6-8.7) 06/18/23 17:45 Albumin 3.3 g/dL (3.5-5.2) L 06/18/23 17:45 Globulin 4.5 g/dL (1.3-4.6) 06/18/23 17:45 Urine Color Yellow (Yellow) 06/18/23 19:14 Urine Appearance Clear (CLEAR) 06/18/23 19:14 Urine pH 6.5 (5-7) 06/18/23 19:14 Ur Specific [place] 1.010 (1.005-1.030) 06/18/23 19:14 Urine Protein Trace (Negative) 06/18/23 19:14 Urine Glucose (UA) Norm (Normal) 06/18/23 19:14 Urine Ketones 1+ (Negative) H 06/18/23 19:14 Urine Blood 2+ (Negative) H 06/18/23 19:14 Urine Nitrate Negative (Negative) 06/18/23 19:14 Urine Bilirubin 1+ (Negative) H 06/18/23 19:14 Urine Urobilinogen Neg mg/dL (Negative) 06/18/23 19:14 Ur Leukocyte Esterase Trace (Negative) H 06/18/23 19:14 Urine RBC 5-10 /hpf (0-2) H 06/18/23 19:14 Urine WBC 5-10 /hpf (0-5) H 06/18/23 19:14 Ur Squamous Epith Cells 0-4 /hpf (0-5) H 06/18/23 19:14 Amorphous Sediment 1+ /hpf 06/18/23 19:14 Urine Bacteria 1+ /hpf (NONE) H 06/18/23 19:14 Hyaline Casts 0-4 /lpf H 06/18/23 19:14 RBC Casts 0-4 /lpf 06/18/23 19:14 Urine Mucus 2+ /hpf 06/18/23 19:14 Discharge Plan Discharge Patient Disposition: Admitted As Inpatient Clinical Impression: Acute hyponatremia, Abdominal ascites Condition: Fair Coding Level of Care Code ED Route Rider Supervisor for Jeremias Blackman
--- NOTE | 2023-06-18 17:55 | CTR_ITS ---
PROCEDURE INFORMATION: Exam: CT Abdomen And Pelvis Without Contrast Exam date and time: 06/18/2023 6:10 PM Age: 77 years old Clinical indication: Abdominal pain; Generalized; Prior surgery; Surgery date: 6+ months; Surgery type: Hysterectomy; Patient HX: Abd pain with constipation TECHNIQUE: Imaging protocol: Computed tomography of the abdomen and pelvis without contrast. Radiation optimization: All CT scans at this facility use at least one of these dose optimization techniques: automated exposure control; mA and/or kV adjustment per patient size (includes targeted exams where dose is matched to clinical indication); or iterative reconstruction. COMPARISON: CR XR KUB [id number] 06/15/2023 4:10 PM RADIATION DOSE METRICS: Total DLP (mGy-cm): 407.83 FINDINGS: Pleural spaces: Small bilateral pleural effusions with adjacent compressive atelectasis. Diaphragm: Moderate size hiatal hernia. Liver: Mildly nodular liver contour raises concern for cirrhosis. Gallbladder and bile ducts: Normal. No calcified stones. No ductal dilation. Pancreas: Normal. No ductal dilation. Spleen: Normal. No splenomegaly. Adrenal glands: Normal. No mass. Kidneys and ureters: Normal. No hydronephrosis. Stomach and bowel: Colonic constipation is present. There is diverticulosis of the colon without evidence of diverticulitis. Gastric and bowel mucosa not optimally visualized without oral or IV contrast. Appendix: No evidence of appendicitis. Intraperitoneal space: There is a moderate amount of free intraperitoneal fluid/ascites in the abdomen/pelvis. Vasculature: Unremarkable. No abdominal aortic aneurysm. Lymph nodes: There is mesenteric and retroperitoneal lymphadenopathy. Urinary bladder: Unremarkable as visualized. Reproductive: The uterus is not visualized, consistent with hysterectomy. Bones/joints: There degenerative changes in the visualized spine. There are lower lumbar broad-based disc osteophyte complexes. Soft tissues: Unremarkable. Other findings: Vascular structures not optimally visualized without oral or IV contrast. CT/CT abdomen pelvis wo con [id number] IMPRESSION: 1. Mesenteric and retroperitoneal lymphadenopathy raises concern for lymphoma. CT scan abdomen/pelvis with IV contrast recommended for further evaluation. 2. Small bilateral pleural effusions with adjacent compressive atelectasis. 3. Mildly nodular liver contour raises concern for cirrhosis. 4. There is a moderate amount of free intraperitoneal fluid/ascites in the abdomen/pelvis. 5. Colonic constipation is present.
[2023-06-18 18:12] LABS: Alanine Aminotransferase 7 U/L (0-33); Albumin Level 3.3 g/dL (3.5-5.2); Alkaline Phosphatase 108 U/L (35-105); Anion Gap 16.2 (5-19); Aspartate Amino Transferase 15 U/L (0-32); Blood Urea Nitrogen 24 mg/dL (8-23); Calcium 9.1 mg/dL (8.5-10.5); Carbon Dioxide 24 mmol/L (22-29); Chloride 84 mmol/L (98-107); Globulin 4.5 g/dL (1.3-4.6); Glucose 100 mg/dL (65-115); Osmolality Calculated 252 mOsm/kg (285-295); Potassium 5.2 mmol/L (3.5-5.1); Total Bilirubin 0.4 mg/dL (0.15-1.2); Total Protein 7.8 g/dL (6.6-8.7)
[2023-06-18 18:14] LABS: Creatinine Clr Calc Pharmacy 35.5265
[2023-06-18 18:15] LABS: Sodium 119 mmol/L (136-145)
[2023-06-18] MEDS: morphine 4 mg/mL SDV 1 mL IVP (18:24)
[2023-06-18] MEDS: orphenadrine 30 mg/mL Inj 2 mL 60 MG IVP (18:30)
[2023-06-18] MEDS: dexamethasone 10 mg/mL INJ IVP (18:30)
[2023-06-18 19:29] LABS: Protein Urine Trace (Negative); Urine Appearance Clear (CLEAR); Urine Color Yellow (Yellow); pH Urine 6.5 (5-7)
[2023-06-18 19:30] LABS: Add Urine Microscopic? YES; Bilirubin Urine 1+ (Negative); Blood Urine 2+ (Negative); Glucose Urine UA Norm (Normal); Ketones Urine 1+ (Negative); Leukocyte Esterase Urine Trace (Negative); Nitrate Urine Negative (Negative); Urobilinogen Urine Neg (Negative)
[2023-06-18 19:31] LABS: Amorphous Sediment Urine 1+ /hpf; Bacteria Urine 1+ /hpf; Hyaline Casts Urine 0-4 /lpf; Mucus Urine 2+ /hpf; Red Blood Cell Casts Urine 0-4 /lpf; Squamous Epithelial Cell Urine 0-4 /hpf (0-5)
[2023-06-18] MEDS: sodium chloride 0.9% 1,000 ML 100 ML IV (20:11)
--- NOTE | 2023-06-18 20:56 | P.HP_ITS ---
Providers/Chief Complaint 2 Primary Care Provider: Estefani Montaño MD Chief Complaint: back pain, no drink or eat, no bowel movement History of Present Illness Ms. Vika Rocha is a 77-year-old female with past medical history of hyperlipidemia, gastritis, duodenitis, anemia, fibromyalgia, chronic GERD, large hiatal hernia status postrepair in March 2023 at [place], has had blood transfusions and iron deficient fusion 2 years ago, presented today with chief complaint of worsening of constipation and lower back pain. Patient is stating that her previous 3 colonoscopies were unremarkable. No history of cancer. No history of coronary disease or CHF. She has been dealing with severe constipation for last 2 weeks, she is passing flatus, last proper meal was few days ago, she has not been able to eat much because of poor appetite. She is not complaining of severe excruciating abdominal pain. Her lower back pain is bothering her she has had multiple visits in the ER and urgent care for her back pain. She has been noticing weight loss, night sweats, diaphoresis, she has not noticed any chest pain, orthopnea, PND,. In the ER workup showed severe hyponatremia she has been given normal saline, sodium check every 4 hours, nephro consulted admit to ICU Shortness of breath improved after getting morphine and Decadron she is currently on normal saline at 100 mill per hour Decision to start hypertonic saline will be made after getting next sodium level CT abdomen pelvis showing liver cirrhosis, ascites and significant lymphadenopathy concerning for lymphoma Hyperkalemia, BEVERLY, LDH is high as well without leukocytosis, she is afebrile, Review of Systems 2 Const: Reports: fever(s), chills, body aches, malaise and night sweats Eyes: Denies: change in vision ENMT: Denies: throat pain Card: Denies: chest pain Resp: Denies: dyspnea GI: Reports: nausea, constipation, bloating and belching : Denies: flank pain Musc: Reports: back pain Medications/Allergies Home Medications Medication Instructions Recorded Confirmed Last Taken Type ascorbic acid (vitamin C) 500 mg 500 mg PO DAILY 07/15/21 06/15/23 09/23/21 History tablet (Vitamin C) ferrous sulfate [Iron (ferrous 65 mg PO DAILY 07/29/21 06/15/23 09/23/21 History sulfate)] calcium carbonate 600 mg-vitamin 1 tab PO DAILY 09/15/21 06/15/23 09/23/21 History D3 5 mcg (200 unit) tablet fexofenadine 180 mg tablet 180 mg PO DAILY PRN Allergy 07/13/22 06/15/23 Unknown Rx (Allergy Relief (fexofenadine)) Symptoms 90 days #90 tabs fluticasone propionate 50 See Rx Instructions .Route 02/16/23 06/15/23 Unknown Rx mcg/actuation nasal .COMPLEX #48 grams spray,suspension acetaminophen 500 mg tablet 1,000 mg (2 x 500 mg) PO Q6H PRN 06/12/23 06/15/23 Unknown Rx pain #60 tabs cyclobenzaprine 10 mg tablet 10 mg PO TID #30 tabs 06/12/23 06/15/23 Unknown Rx tramadol 50 mg tablet 50 mg PO BID PRN pain #10 tabs 06/15/23 06/15/23 Unknown Rx Allergies Allergy/AdvReac Type Severity Reaction Status Date / Time aspirin Allergy Severe ALGY-Swell Verified 06/18/23 17:36 Lip/Tongue/Throat PFSH Acute 2 PFSH: Medical History (Updated 06/18/23 @ 22:21 by Maverick Coats MD) Mixed hyperlipidemia GI bleed If continues to be of concern about GI to be a source of patient's anemia a capsule endoscopy would be the next step. Chronic dental infection Insomnia Fibromyalgia Chronic pain syndrome Chronic GERD Surgical History History of colonoscopy H/O knee surgery H/O: hysterectomy Family History Mother Cancer Lung Cancer Father Cancer Lung Cancer Hypertension Social History Smoking and tobacco/nicotine status: never used tobacco/nicotine Second hand smoke exposure: No Alcohol intake: never Substance/Drug Use: never Female Reproductive History: Spontaneous abortions: No Vitals/I&O/Wt Last Vital Signs Temp 97.6 F 06/18/23 17:26 Pulse 90 06/18/23 20:15 Resp 18 06/18/23 20:15 BP 120/68 06/18/23 20:15 Pulse Ox 100 06/18/23 20:15 O2 Del Method Nasal Cannula 06/18/23 20:15 O2 Flow Rate 2 06/18/23 20:15 Weight last 48 hrs Weight 57.606 kg Physical Exam 2 Narrative: Patient is awake and alert Abdomen soft, bowel sound present Very sluggish S1, S2 Currently on 3 L nasal cannula saturating 100% Nonfocal neuroexam Pleasant cough Looks dehydrated Nonfocal neuroexam at the bedside Data 06/18/23 17:45 06/18/23 17:45 A&P Assessment and plan (1) Lymphadenopathy, abdominal: (2) Lymphoma: (3) Constipation: (4) Chronic GERD: (5) Gastritis and duodenitis: (6) Abdominal ascites: (7) Liver cirrhosis: (8) Acute hyponatremia: (9) Lumbar paraspinal muscle spasm: (10) Fibromyalgia: (11) Low back pain: Qualifiers: Back pain laterality: right Chronicity: acute Sciatica presence: w ithout sciatica Qualified Code(s): M54.50 - Low back pain, unspecified (12) BEVERLY (acute kidney injury): Plan Severe constipation Will give her mag citrate and lactulose Keep her on clear liquid diet Patient is passing flatus Last bowel movement was 10 days ago Severe/critical low hyponatremia Admit to ICU Normal saline 100 mill per hour next BMP every 4 hours Seen regarding hypertonic send will be made after checking neck sodium levels Nephro consulted Clinically patient is hypovolemic hyponatremia Last proper meal was couple of days ago BEVERLY related to dehydration anticipating improvement with IV fluid hydration Liver cirrhosis with ascites Start ceftriaxone 2 g daily Abdominal pain No previous diagnosis of liver disease HIV or hepatitis Patient does not drink alcohol, does not smoke No significant anemia or thrombocytopenia Rule out lymphoma significant lymphadenopathy noted on CT abdomen pelvis Request LDH and uric acid Patient is full code, discussed with the patient and her at the bedside Clear liquid diet Added DVT prophylaxis as well B-cell symptoms Weight loss, nocturnal fever, diaphoresis, lymphadenopathy Patient will need diagnostic biopsy of her lymph node to rule out lymphoma which could happen on Tuesday Please stop DVT prophylaxis on Tuesday midnight Patient will need radiology consult Attestations 2 Medical Necessity Statement*: More than 2 midnights anticipated Diagnoses Lymphadenopathy, abdominal R59.0 Lymphoma C85.90 Constipation K59.00 Chronic GERD K21.9 Gastritis and duodenitis K29.90 Abdominal ascites R18.8 Liver cirrhosis K74.60 Acute hyponatremia E87.1 Lumbar paraspinal muscle spasm M62.830 Fibromyalgia M79.7 Low back pain M54.50 Back pain laterality: right Chronicity: acute Sciatica presence: without sciatica BEVERLY (acute kidney injury) N17.9
[2023-06-18 21:16] LABS: Uric Acid 7.5 mg/dL (2.4-5.7)
[2023-06-18 21:29] LABS: Lactate Dehydrogenase 322 U/L (135-214)
--- NOTE | 2023-06-18 21:30 | PC.NURSE ---
Dr. Coats came to see this pt then he reported to me that if the next sodium level shows increasing levels then we can continue with the Normal Saline running at 100ml/hr, if the levels stay the same or worsen then we will start the 3% Saline solution as ordered. If not done prior to admission, this information will be passed to the accepting nurse.
[2023-06-18 21:41] LABS: Creatinine Urine, Random 179 mg/dL (28-217); Microalbum Creatinine Ratio Ur 11 mg/dL (0-20); Microalbumin Random Urine 2 ug/dL (0-20)
[2023-06-18 21:47] LABS: Urine Random Sodium 19 mmol/L
[2023-06-18 22:32] LABS: Sodium 118 mmol/L (136-145)
--- NOTE | 2023-06-18 22:40 | PC.NURSE ---
This chief underwriter received the result for the repeat sodium of 118. This information was relayed to admission nurse via Mariana MOORE and provider notified.
[2023-06-18 23:12] LABS: Thyroid Stimulating Hormone 1.58 uIU/mL (0.27-4.20)
[2023-06-18] MEDS: albumin 25 G/100 ML BAG 60 G IV (23:13)
[2023-06-18] MEDS: lactulose oral liq 20 gm/30 mL UDC PO (23:13)
--- NOTE | 2023-06-18 23:27 | PC.NURSE ---
Belongings with patient upon admission include glasses and phone.
[2023-06-18] MEDS: sodium chloride 1 gm Tablet PO (23:48)
[2023-06-18] MEDS: magnesium citrate Btl 296 mL 150 ML PO (23:51)
[2023-06-19] VITALS (62 sets, daily range): BP systolic 92–149; BP diastolic 58–102; PULSE 77–98; RESP 12–31; TEMP 36–36.9; O2SAT 92–100; BMI 22.9
[2023-06-19 00:16] LABS: Anion Gap 18.5 (5-19); Blood Urea Nitrogen 25 mg/dL (8-23); Calcium 8.7 mg/dL (8.5-10.5); Carbon Dioxide 21 mmol/L (22-29); Chloride 85 mmol/L (98-107); Creatinine Clr Calc Pharmacy 44.2752; Glucose 152 mg/dL (65-115); Osmolality Calculated 255 mOsm/kg (285-295); Potassium 5.5 mmol/L (3.5-5.1)
[2023-06-19 00:24] LABS: Sodium 119 mmol/L (136-145)
--- NOTE | 2023-06-19 00:33 | PC.NURSE ---
Critical Sodium Critical sodium level of 119 drawn at 2339. 1 gm sodium tablet administered at 2348; next sodium level to check effectiveness of intervention at 0100.
--- NOTE | 2023-06-19 00:41 | PC.NURSE ---
Spoke with Dr. Cottrell on the phone regarding patient's sodium level, was given telephone orders to give 1g sodium tablet PO ONCE, 25% 25g albumin dose ONCE, continue NS at 100mL/hr, DC 3% saline, and to recheck sodium levels at 0400.
[2023-06-19 02:23] LABS: Sodium 120 mmol/L (136-145)
[2023-06-19 04:23] LABS: Eosinophils % 0.2 %; Hematocrit 33.1 % (36-47); Lymphocytes # 0.4 10^3/uL (0.8-4.8); Lymphocytes % 7.4 %; Mean Corpuscular HGB Conc 32.6 g/dL (30-55); Mean Corpuscular Hemoglobin 25.4 pg (27-33); Mean Corpuscular Volume 77.7 fl (85-98); Mean Platelet Volume 9.4 fL (7.4-10.4); Neutrophils # 4.49 10^3/uL (1.8-7.7); Neutrophils % 75.6 %; Nucleated Red Blood Cells % 0 %; Platelet Count 222 10^3/cmm (157-399); Red Blood Count 4.26 10^6/uL (3.85-5.65); Red Cell Distribution Width 15.9 % (12.1-15.1); White Blood Count 5.94 10^3/uL (3.29-11.43)
[2023-06-19 04:49] LABS: C Reactive Protein 94.2 mg/L (0.0-4.9); Magnesium 2.9 mg/dL (1.7-2.3)
[2023-06-19 04:50] LABS: Sodium 123 mmol/L (136-145)
--- NOTE | 2023-06-19 06:00 | USCV_ITS ---
Vika Rocha Age: 77 Gender: F : 1945 Exam Date: 06/19/2023 11:27 Ordering Phys: Maverick Coats MD Technologist: Sergio Rojas Exam Location: [facility] [place] Indication: chf BP: 118 / 68 HR: 78 Rhythm: Sinus Technical Quality: Adequate MEASUREMENTS (Male / Female) Normal Values 2D ECHO LVOT Diameter 2.0 cm LV Ejection Fraction MOD 2C 56.4 % LV Ejection Fraction 2C AL 56.3 % LA Diameter 3.1 cm RA Systolic Volume 4C AL 33.3 ml RA Systolic Volume 4C MOD 33.2 ml Aorta at Sinotubular Diameter 2.4 cm IVC Diameter 1.7 cm M-MODE LA Ao Ratio MM 1.4 AV Cusp Separation MM 1.3 cm DOPPLER AV Peak Velocity 141.0 cm/s LVOT Peak Velocity 122.0 cm/s AV Area Cont Eq vti 3.3 cm squared AV Area Cont Eq pk 2.7 cm squared MV Peak Velocity 110.0 cm/s MV Area PHT 7.4 cm squared Mitral E to A Ratio 0.7 TV Peak Velocity 323.7 cm/s TR Peak Velocity 350.0 cm/s TR Peak Gradient 49.0 mmHg TR Mean Velocity 254.0 cm/s TR Mean Gradient 28.2 mmHg TR Velocity Time Integral 95.8 cm RV Ejection Time 0.3 s FINDINGS Left Ventricle Normal left ventricular size and systolic function, EF 56%.no regional wall motion abnormalities. Grade I/IV diastolic dysfunction (abnormal relaxation filling pattern), normal to mildly elevated filling pressures. Right Ventricle The right ventricle is normal in size and function. Right Atrium The right atrium is normal in size. Left Atrium The left atrium is normal in size. Mitral Valve Mild mitral annular calcification. Mild mitral valve regurgitation. Aortic Valve No gross abnormalities noted Tricuspid Valve no gross abnormalities noted Pulmonic Valve no gross abnormalities noted Pericardium Normal pericardium without effusion. Aorta Normal ascending aorta dimension. IVC Normal inferior vena cava. CONCLUSIONS Normal left ventricular size and systolic function, EF 56%.no regional wall motion abnormalities. Grade I/IV diastolic dysfunction (abnormal relaxation filling pattern), normal to mildly elevated filling pressures. Mild mitral annular calcification. Mild mitral valve regurgitation. Normal cardiac chamber sizes There is no pericardial effusion. There are no intracardiac masses. No similar previous studies are available for comparison Dr Mary Ann Gandhi MD FACC (Electronically Signed) Final Date: 19 June 2023 21:07 S
--- NOTE | 2023-06-19 06:05 | PC.NURSE ---
Called to update Dr. Johnson concerning patient's sodium level, was given telephone orders to discontinue NS.
--- NOTE | 2023-06-19 06:47 | P.CONIM_ITS ---
Providers/Reason For Consult 2 Consulting Physician/Specialty*: [facility]/Nephrology Reason for Consult*: BEVERLY , Hyponatremia Attending Physician: Maverick Coats MD Primary Care Provider: Estefani Montaño MD History of Present Illness History of Present Illness Vika Rocha is a 77 year old female Patient is a 77-year-old female with past medical history of dyslipidemia, history of fibromyalgia, GERD, chronic anemia presented to the hospital due to abdominal discomfort low back pain. In the ER further workup has showed severe hyponatremia with a sodium of 119. She also reported having unintentional weight loss due to decreased appetite. CT scan of the abdomen has showed liver cirrhosis, ascites and lymphadenopathy concerning for lymphoma. Other lab data is significant for potassium of 5.2 creatinine of 1.1. Review of Systems 2 Narrative: other ROS negtive Medications/Allergies Home Medications Medication Instructions Recorded Confirmed Last Taken Type ascorbic acid (vitamin C) 500 mg 500 mg PO DAILY 07/15/21 06/19/23 09/23/21 History tablet (Vitamin C) calcium carbonate 600 mg-vitamin 1 tab PO DAILY 09/15/21 06/19/23 09/23/21 History D3 5 mcg (200 unit) tablet fexofenadine 180 mg tablet 180 mg PO DAILY PRN Allergy 07/13/22 06/19/23 Unknown Rx (Allergy Relief (fexofenadine)) Symptoms 90 days #90 tabs fluticasone propionate 50 See Rx Instructions .Route 02/16/23 06/19/23 Unknown Rx mcg/actuation nasal .COMPLEX #48 grams spray,suspension acetaminophen 500 mg tablet 1,000 mg (2 x 500 mg) PO Q6H PRN 06/12/23 06/19/23 Unknown Rx pain #60 tabs cyclobenzaprine 10 mg tablet 10 mg PO TID #30 tabs 06/12/23 06/19/23 Unknown Rx tramadol 50 mg tablet 50 mg PO BID PRN pain #10 tabs 06/15/23 06/19/23 Unknown Rx ferrous sulfate 325 mg (65 mg 325 mg PO DAILY 06/19/23 06/19/23 Unknown History iron) tablet (Iron (ferrous sulfate)) pantoprazole 40 mg tablet,delayed 40 mg PO DAILY 06/19/23 06/19/23 Unknown History release Allergies Allergy/AdvReac Type Severity Reaction Status Date / Time aspirin Allergy Severe ALGY-Swell Verified 06/18/23 17:36 Lip/Tongue/Throat PFSH Acute 2 PFSH: Medical History (Updated 06/18/23 @ 22:21 by Maverick Coats MD) Mixed hyperlipidemia GI bleed If continues to be of concern about GI to be a source of patient's anemia a capsule endoscopy would be the next step. Chronic dental infection Insomnia Fibromyalgia Chronic pain syndrome Chronic GERD Surgical History History of colonoscopy H/O knee surgery H/O: hysterectomy Family History Mother Cancer Lung Cancer Father Cancer Lung Cancer Hypertension Social History Smoking and tobacco/nicotine status: never used tobacco/nicotine Second hand smoke exposure: No Alcohol intake: never Substance/Drug Use: never Female Reproductive History: Spontaneous abortions: No Vitals/I&O/Wt Last Vital Signs Temp 97.9 F 06/19/23 03:30 Pulse 82 06/19/23 06:00 Resp 12 06/19/23 06:00 BP 121/78 06/19/23 06:00 Pulse Ox 100 06/19/23 06:00 O2 Del Method Room Air 06/19/23 01:30 O2 Flow Rate 2 06/18/23 21:00 06/18/23 06/18/23 06/19/23 14:59 22:59 06:59 Intake Total 1131.667 / 1131.667 Output Total 200 / 200 Balance 931.667 / 931.667 Weight last 48 hrs Weight 56.869 kg Weight 56.699 kg Weight 57.606 kg Physical Exam 2 Narrative: awake , alert no distress no edema Data 06/19/23 04:14 06/19/23 09:08 A&P Assessment and plan (1) BEVERLY (acute kidney injury): (2) Acute hyponatremia: Plan 1. Hyponatremia: Likely hypovolemic in the setting of poor p.o. intake. Was started on IV fluids, BMP every 4 hours, check urine sodium and urine osmolality. Status post 1 dose sodium chloride tab. Placed on fluid restriction patient evaluated 2. BEVERLY: Likely prerenal, on normal saline, continue to monitor 3. Hyperkalemia, status post med management and await repeat BMP. 4. Extensive lymphadenopathy concerning for lymphoma 5. Liver cirrhosis and ascites. Patient evaluated using audiovisual cart. Time spent 40 minutes. Consult Attestations 2 Medical Necessity Statement: per jaquan Coding Level of Care Code Acute Code for Chg Fwd Diagnoses BEVERLY (acute kidney injury) N17.9 Acute hyponatremia E87.1
--- NOTE | 2023-06-19 07:48 | PC.PHAR ---
PT UNABLE TO VERIFY MEDICATIONS- MEDICATIONS VERIFIED USING HOME MED LIST AND EXTERNAL MED LIST LAST FILLED
[2023-06-19] MEDS: pantoprazole 40 mg SDV IVP ×2 (08:07→17:47)
[2023-06-19] MEDS: sodium chloride 1 gm Tablet PO ×2 (08:07→17:47)
[2023-06-19] MEDS: cefTRIAXone 2,000 MG in sodium chloride 0.9% (plus) 50 ML 100 MG IV (08:32)
[2023-06-19] MEDS: albumin 25 G/100 ML BAG 60 G IV ×3 (09:29→22:01)
[2023-06-19 09:37] LABS: Sodium 123 mmol/L (136-145)
--- NOTE | 2023-06-19 12:14 | P.PN_ITS ---
Subjective 2 Subjective: Seen this morning. Sodium 123. at bedside. Patient offers no complaints. Vitals/I&O/Wt Last Vital Signs Temp 97.0 F L 06/19/23 08:00 Pulse 80 06/19/23 10:30 Resp 20 H 06/19/23 10:30 BP 118/68 06/19/23 10:30 Pulse Ox 100 06/19/23 10:30 O2 Del Method Room Air 06/19/23 01:30 O2 Flow Rate 2 06/18/23 21:00 06/18/23 06/19/23 06/19/23 22:59 06:59 14:59 Intake Total 1131.667 / 1131.667 990 / 990 Output Total 200 / 200 Balance 931.667 / 931.667 990 / 990 Weight last 48 hrs Weight 56.869 kg Weight 56.699 kg Weight 57.606 kg Physical Exam 2 Narrative: Patient is awake and alert Abdomen soft, bowel sound present Talkative this morning, at bedside. S1, S2 Currently on 3 L nasal cannula saturating 100% Nonfocal neuroexam Pleasant cough Clear to auscultation bilaterally no wheezes no rhonchi. Abdomen soft Nonfocal neuroexam at the bedside Data 06/19/23 04:14 06/19/23 09:08 A&P Assessment and plan (1) Lymphadenopathy, abdominal: (2) Lymphoma: (3) Constipation: (4) Chronic GERD: (5) Gastritis and duodenitis: (6) Abdominal ascites: (7) Liver cirrhosis: (8) Acute hyponatremia: (9) Lumbar paraspinal muscle spasm: (10) Fibromyalgia: (11) Low back pain: Qualifiers: Back pain laterality: right Chronicity: acute Sciatica presence: w ithout sciatica Qualified Code(s): M54.50 - Low back pain, unspecified (12) BEVERLY (acute kidney injury): Plan Severe constipation Will give her mag citrate and lactulose Keep her on clear liquid diet Patient is passing flatus Last bowel movement was 10 days ago Severe/critical low hyponatremia Admit to ICU Normal saline 100 mill per hour next BMP every 4 hours Seen regarding hypertonic send will be made after checking neck sodium levels Nephro consulted Clinically patient is hypovolemic hyponatremia Last proper meal was couple of days ago Sodium 123 this morning. Potassium 5.5 last night. We will repeat at this time. Recheck BMP. BEVERLY related to dehydration anticipating improvement with IV fluid hydration Liver cirrhosis with ascites Start ceftriaxone 2 g daily Abdominal pain No previous diagnosis of liver disease HIV or hepatitis Patient does not drink alcohol, does not smoke No significant anemia or thrombocytopenia Rule out lymphoma significant lymphadenopathy noted on CT abdomen pelvis Request LDH and uric acid Patient is full code, discussed with the patient and her at the bedside Clear liquid diet Added DVT prophylaxis as well B-cell symptoms Weight loss, nocturnal fever, diaphoresis, lymphadenopathy Patient will need diagnostic biopsy of her lymph node to rule out lymphoma which could happen on Tuesday Please stop DVT prophylaxis on Tuesday midnight Patient will need radiology consult Attestations 2 Medical Necessity Statement*: More than 2 midnights anticipated Diagnoses Lymphadenopathy, abdominal R59.0 Lymphoma C85.90 Constipation K59.00 Chronic GERD K21.9 Gastritis and duodenitis K29.90 Abdominal ascites R18.8 Liver cirrhosis K74.60 Acute hyponatremia E87.1 Lumbar paraspinal muscle spasm M62.830 Fibromyalgia M79.7 Low back pain M54.50 Back pain laterality: right Chronicity: acute Sciatica presence: without sciatica BEVERLY (acute kidney injury) N17.9
[2023-06-19 13:15] LABS: Sodium 124 mmol/L (136-145)
[2023-06-19 13:23] LABS: Blood Urea Nitrogen 25 mg/dL (8-23); Calcium 8.5 mg/dL (8.5-10.5); Carbon Dioxide 21 mmol/L (22-29); Chloride 89 mmol/L (98-107); Creatinine Clr Calc Pharmacy 44.3323; Glucose 137 mg/dL (65-115); Osmolality Calculated 265 mOsm/kg (285-295); Sodium 124 mmol/L (136-145)
[2023-06-19] MEDS: morphine IR 15 mg Tablet PO (18:27)
[2023-06-20] VITALS (49 sets, daily range): BP systolic 94–134; BP diastolic 52–84; PULSE 67–103; RESP 13–28; TEMP 36.1–36.7; O2SAT 84–99
[2023-06-20 01:50] LABS: Blood Urea Nitrogen 21 mg/dL (8-23); Calcium 9.4 mg/dL (8.5-10.5); Carbon Dioxide 24 mmol/L (22-29); Chloride 94 mmol/L (98-107); Creatinine Clr Calc Pharmacy 49.8738; Glucose 92 mg/dL (65-115); Osmolality Calculated 267 mOsm/kg (285-295); Sodium 127 mmol/L (136-145)
[2023-06-20 04:54] LABS: Basophils % 0.1 %; Eosinophils % 0.1 %; Hematocrit 33.4 % (36-47); Lymphocytes # 0.5 10^3/uL (0.8-4.8); Lymphocytes % 4.2 %; Mean Corpuscular Hemoglobin 25.7 pg (27-33); Mean Corpuscular Volume 80.1 fl (85-98); Mean Platelet Volume 9.1 fL (7.4-10.4); Monocytes # 1.6 10^3/uL (0.2-0.9); Monocytes % 14.2 %; Neutrophils # 8.85 10^3/uL (1.8-7.7); Neutrophils % 80.7 %; Nucleated Red Blood Cells % 0 %; Platelet Count 245 10^3/cmm (157-399); Red Blood Count 4.17 10^6/uL (3.85-5.65); Red Cell Distribution Width 16.4 % (12.1-15.1); White Blood Count 10.97 10^3/uL (3.29-11.43)
[2023-06-20 05:03] LABS: Anion Gap 12.7 (5-19); Blood Urea Nitrogen 21 mg/dL (8-23); Calcium 9.2 mg/dL (8.5-10.5); Carbon Dioxide 25 mmol/L (22-29); Chloride 91 mmol/L (98-107); Creatinine Clr Calc Pharmacy 49.8738; Glucose 80 mg/dL (65-115); Osmolality Calculated 260 mOsm/kg (285-295); Potassium 4.7 mmol/L (3.5-5.1); Sodium 124 mmol/L (136-145)
[2023-06-20 05:11] LABS: Magnesium 2.6 mg/dL (1.7-2.3)
--- NOTE | 2023-06-20 05:52 | PM.PN ---
Subjective Subjective: no new c/o Medications: Reviewed: Yes Vitals/I&O/Wt Last Vital Signs Temp 97.3 F L 06/20/23 04:16 Pulse 82 06/20/23 05:24 Resp 20 H 06/20/23 04:16 BP 116/69 06/20/23 04:16 Pulse Ox 90 06/20/23 04:16 O2 Del Method Nasal Cannula 06/20/23 04:16 O2 Flow Rate 2 06/20/23 04:16 06/19/23 06/19/23 06/20/23 14:59 22:59 06:59 Intake Total 1290 / 1290 900 / 2190 100 / 2290 Output Total 350 / 350 Balance 1290 / 1290 900 / 2190 -250 / 1940 Weight last 48 hrs Weight 56.869 kg Weight 56.699 kg Weight 57.606 kg Physical Exam Narrative: awake , alert no distress no edema Data 06/20/23 04:25 06/20/23 09:03 A&P Assessment and plan (1) BEVERLY (acute kidney injury): (2) Acute hyponatremia: Plan 1. Hyponatremia: Likely hypovolemic in the setting of poor p.o. intake. s/p IVF , check urine sodium and urine osmolality. Status post 1 dose sodium chloride tab. Placed on fluid restriction 1500 ml/day - Na down to 124 , will give NS 2. BEVERLY: Likely prerenal, on normal saline, continue to monitor 3. Hyperkalemia, status post med management and await repeat BMP. 4. Extensive lymphadenopathy concerning for lymphoma 5. Liver cirrhosis and ascites. Patient evaluated using audiovisual cart. Time spent 20 minutes. Attestations Medical Necessity Statement*: per navinma Coding Level of Care Code Acute Code for [facility] Fwd Diagnoses BEVERLY (acute kidney injury) N17.9 Acute hyponatremia E87.1
[2023-06-20] MEDS: albumin 25 G/100 ML BAG 60 G IV ×3 (06:09→23:11)
[2023-06-20] MEDS: sodium chloride 0.9% 1,000 ML 75 ML IV ×2 (06:10→19:36)
[2023-06-20] MEDS: pantoprazole 40 mg SDV IVP ×2 (08:11→17:52)
[2023-06-20] MEDS: cefTRIAXone 2,000 MG in sodium chloride 0.9% (plus) 50 ML 100 MG IV (08:11)
[2023-06-20] MEDS: sodium chloride 1 gm Tablet PO ×2 (08:12→17:52)
[2023-06-20] MEDS: morphine IR 15 mg Tablet PO ×2 (08:12→18:15)
[2023-06-20 09:45] LABS: Anion Gap 14.5 (5-19); Blood Urea Nitrogen 21 mg/dL (8-23); Carbon Dioxide 23 mmol/L (22-29); Chloride 91 mmol/L (98-107); Creatinine Clr Calc Pharmacy 44.4942; Glucose 72 mg/dL (65-115); Osmolality Calculated 260 mOsm/kg (285-295); Potassium 4.5 mmol/L (3.5-5.1); Sodium 124 mmol/L (136-145)
--- NOTE | 2023-06-20 12:51 | US_ITS ---
WS: [id number] Abdominal ultrasound, limited. History: Evaluate for ascites. Comparison: None. All 4 quadrants are imaged by ultrasound to evaluate for ascites. There is no peritoneal fluid identi fied. IMPRESSION: No peritoneal ascites identified by ultrasound.
--- NOTE | 2023-06-20 12:54 | CTR_ITS ---
PROCEDURE INFORMATION: Exam: CT Chest With Contrast; Diagnostic Exam date and time: 06/20/2023 4:11 PM Age: 77 years old Clinical indication: Other: Concern for malignancy; Prior surgery; Surgery date: 6+ months; Surgery type: Hyst; Additional info: Concern for malignancy, newly diagnosed generalized mesenteric and retroperiotneal TECHNIQUE: Imaging protocol: Diagnostic computed tomography of the chest with contrast. Radiation optimization: All CT scans at this facility use at least one of these dose optimization techniques: automated exposure control; mA and/or kV adjustment per patient size (includes targeted exams where dose is matched to clinical indication); or iterative reconstruction. Contrast material: OMNI 350; Contrast volume: 80 ml; Contrast route: INTRAVENOUS (IV); COMPARISON: CT angio chest PE protcl [id number] 10/13/2022 7:45 PM RADIATION DOSE METRICS: Total DLP (mGy-cm): 642.79 FINDINGS: Lungs: There is compressive segmental atelectasis in the lower lobes. There is platelike subsegmental atelectasis in the right middle lobe. No suspicious pulmonary nodule. Pleural spaces: Small simple dependent bilateral pleural effusions. There is no pleural effusion or pneumothorax. No pneumothorax. Heart: Heart size is normal. There is trace pericardial effusion. Coronary arteries: There is moderate coronary artery calcification. Lymph nodes: No axillary lymphadenopathy. There are enlarged mediastinal lymph nodes. A subcarinal lymph node measures 4.0 x 2.5 cm on axial series 3, image 25. An upper paratracheal lymph node measures 2.1 x 2.0 cm on axial series 3, image 16. There are prominent lymph nodes in the epicardial fat. Vasculature: There is mild aortic atherosclerotic disease. The central pulmonary arteries are unremarkable. Diaphragm: There is a small sliding-type hiatal hernia. Bones/joints: There are multiple healed left rib fractures. No suspicious bone lesions. Soft tissues: The extrathoracic soft tissues are unremarkable. PROCEDURE INFORMATION: Exam: CT Abdomen And Pelvis With Contrast Exam date and time: 06/20/2023 4:11 PM Age: 77 years old Clinical indication: Other: Concern for malignancy; Prior surgery; Surgery date: 6+ months; Surgery type: Hyst; Additional info: Concern for malignancy, newly diagnosed generalized mesenteric and retroperiotneal TECHNIQUE: Imaging protocol: Computed tomography of the abdomen and pelvis with contrast. Radiation optimization: All CT scans at this facility use at least one of these dose optimization techniques: automated exposure control; mA and/or kV adjustment per patient size (includes targeted exams where dose is matched to clinical indication); or iterative reconstruction. Contrast material: OMNI 350; Contrast volume: 80 ml; Contrast route: INTRAVENOUS (IV); COMPARISON: CT abdomen pelvis con [id number] 06/18/2023 6:10 PM RADIATION DOSE METRICS: Total DLP (mGy-cm): 642.79 FINDINGS: Liver: The liver is normal. Gallbladder and bile ducts: The gallbladder is normal. There is no biliary dilation. Pancreas: The pancreas is unremarkable. Spleen: The spleen is unremarkable. Adrenal glands: The adrenal glands are unremarkable. Kidneys and ureters: The kidneys are unremarkable. No hydronephrosis or stones. No ureteral dilation. Stomach and bowel: The stomach is decompressed, preventing meaningful evaluation of wall thickness. The small bowel is nondilated. Assessment of the proximal colonic mucosa is limited by the presence of very dense intraluminal contrast. There is irregularity of the luminal contrast in proximal ascending colon suggesting mural thickening or infiltrative soft tissue density in the adjacent mesentery indenting the colonic wall (see axial series 5, image 41). The proximal transverse colonic wall is ill-defined (axial series 5, image 35). There is no sign of colonic obstruction. There is moderate distal descending and sigmoid colonic diverticulosis without evidence of diverticulitis. Appendix: The appendix is not visible. Intraperitoneal space: Moderate simple ascites. No intraperitoneal free air. Vasculature: There is moderate aortic atherosclerotic disease. Lymph nodes: There is diffuse lymphadenopathy in the retroperitoneum, abraham hepatis, gastrohepatic ligament, mesentery, iliac chains, deep pelvis, and bilateral inguinal regions. A abraham hepatis lymph node measures 3.1 x 2.1 cm on axial series 5, image 26. A left para-aortic retroperitoneal lymph node measures 2.2 x 1.7 cm on axial series 5, image 34. A discrete left upper quadrant mesenteric lymph node measures 3.6 x 2.0 cm on axial series 5, image 38. A right internal iliac lymph node measures 4.7 x 1.8 cm on axial series 5, image 68. A right inguinal lymph node measures 2.8 x 2.2 cm on axial series 5, image 78. Urinary bladder: The urinary bladder is unremarkable. Reproductive: The uterus is absent. There is no adnexal mass or large cyst. Bones/joints: There is moderate degenerative disease in the lumbar spine. The pelvis and hips are unremarkable. No suspicious bone lesions. Soft tissues: The abdominal wall is intact. There is infiltrative soft tissue thickening of the right lower quadrant mesentery. CT/CT chest abdpel w/*[id number] IMPRESSION: 1. Probably neoplastic mediastinal and epicardial lymphadenopathy. 2. Small simple dependent bilateral pleural effusions. 3. Segmental compressive atelectasis in both lower lobes. 4. No sign of pulmonary neoplasm. IMPRESSION: 1. Diffuse probably neoplastic lymphadenopathy throughout the retroperitoneum, mesentery, abraham hepatis, pelvis and inguinal regions. Lymphoma versus metastases. 2. Infiltrative soft tissue density involving the right lower quadrant mesentery. This finding in association with ascites raises suspicion for peritoneal carcinomatosis. 3. Limited evaluation of the colonic wall due to the presence of high density intraluminal contrast. There is questionable thickening of the ascending colonic wall and ill definition of the proximal transverse colonic wall associated with infiltrative mesenteric soft tissue density. Possible colonic neoplasm versus secondary involvement of the mesentery and colon. 4. Incidental findings above.
--- NOTE | 2023-06-20 15:13 | P.PN_ITS ---
Subjective 2 Subjective: Sodium at 124 today, improving. Currently on normal saline and oral sodium supplementation. No new complaints. Medications: Reviewed: Yes Vitals/I&O/Wt Last Vital Signs Temp 97.1 F L 06/20/23 08:00 Pulse 85 06/20/23 14:30 Resp 13 06/20/23 14:30 BP 125/72 06/20/23 14:30 Pulse Ox 95 06/20/23 14:30 O2 Del Method Oxymask 06/20/23 11:09 O2 Flow Rate 4 06/20/23 11:09 06/20/23 06/20/23 06/20/23 06:59 14:59 22:59 Intake Total 100 / 2290 150 / 150 Output Total 350 / 350 Balance -250 / 1940 150 / 150 Weight last 48 hrs Weight 57.351 kg Weight 56.869 kg Weight 56.699 kg Weight 57.606 kg Physical Exam 2 Narrative: General: No acute distress, AO x3 HEENT: PERRLA, pupils bilaterally equal and reactive, pallors not present Chest: Normal vesicular breath sounds, no added sounds, equal good air entry bilaterally CVS: S1-S2 regular, no murmurs, no tachycardia, no gallops, no rubs Abdomen: Soft, nontender, no organomegaly, bowel sounds present Neuro: No focal deficits, no facial deformity, AO x3, power 5/5 in all limbs Data 06/20/23 04:25 06/20/23 09:03 A&P Assessment and plan (1) Lymphadenopathy, abdominal: (2) Lymphoma: (3) Constipation: (4) Chronic GERD: (5) Gastritis and duodenitis: (6) Abdominal ascites: (7) Liver cirrhosis: (8) Acute hyponatremia: (9) Lumbar paraspinal muscle spasm: (10) Fibromyalgia: (11) Low back pain: Qualifiers: Back pain laterality: right Chronicity: acute Sciatica presence: w ithout sciatica Qualified Code(s): M54.50 - Low back pain, unspecified (12) BEVERLY (acute kidney injury): Plan Severe constipation Will give her mag citrate and lactulose Keep her on clear liquid diet Patient is passing flatus Last bowel movement was 10 days ago Severe/critical low hyponatremia Admit to ICU Normal saline 100 mill per hour next BMP every 4 hours Seen regarding hypertonic send will be made after checking neck sodium levels Nephro consulted Clinically patient is hypovolemic hyponatremia Last proper meal was couple of days ago Sodium 123 this morning. Potassium 5.5 last night. We will repeat at this time. Recheck BMP. BEVERLY related to dehydration anticipating improvement with IV fluid hydration Liver cirrhosis with ascites Start ceftriaxone 2 g daily Abdominal pain No previous diagnosis of liver disease HIV or hepatitis Patient does not drink alcohol, does not smoke No significant anemia or thrombocytopenia Rule out lymphoma significant lymphadenopathy noted on CT abdomen pelvis Request LDH and uric acid Patient is full code, discussed with the patient and her at the bedside Clear liquid diet Added DVT prophylaxis as well B-cell symptoms Weight loss, nocturnal fever, diaphoresis, lymphadenopathy Patient will need diagnostic biopsy of her lymph node to rule out lymphoma which could happen on Tuesday Please stop DVT prophylaxis on Tuesday midnight Patient will need radiology consult Plan for today June 20, 2023. Sodium improving to 124 today. Continue normal saline at 75 cc an hour and p.o. salt supplementation. Appreciate nephrology recommendations. Cancel peritoneal lymph node biopsy today. Will instead complete malignancy evaluation by obtaining CT of the chest abdomen and pelvis with IV and oral contrast. Potentially patient may have additional lymph node involvement in the supraclavicular or infra axillary areas versus may have more easily accessible lymph nodes in the lung. Alternately patient reports a family history of lung cancer affecting both her mother and father, potentially may have lung cancer given also concomitant hyponatremia and possibility of SIADH. She does not yet have a chest x-ray or other lung imaging since October 2022. Will additionally obtain Ca1 25 tumor markers levels. Patient reports a past history of hysterectomy and removal of a single ovary due to infection from an IUD. She still has 1 ovary retained. Not very well-visualized on CT without contrast. Will obtain CT with contrast today. Possibly also paracentesis if enough fluid is encountered on CT abdomen. Reviewed CTA of the chest from October 2022 which had shown a large hiatal hernia for which patient had surgery in March 2023. No immediate perioperative complications per patient history. Incidentally adenopathy was also noted in the upper abdomen on the chest CT with enlarged aortocaval lymph nodes. Will additionally check HIV screen, hepatitis screen and syphilis screen to assess for lymphadenopathy. Patient denies any exposure to farm animals. She has a pet dog at home. No exposure to cats or other exotic pets. Noted cirrhotic contour of the liver she has a history of drinking alcohol excessively several years ago, currently does not drink at all. Check hepatitis C screen Attestations 2 Medical Necessity Statement*: Needs continued admission for CT of the chest abdomen and pelvis as stated above, evaluation of potential underlying malignancy. Coding Level of Care Code Acute Code for Chg Fwd Diagnoses Lymphadenopathy, abdominal R59.0 Lymphoma C85.90 Constipation K59.00 Chronic GERD K21.9 Gastritis and duodenitis K29.90 Abdominal ascites R18.8 Liver cirrhosis K74.60 Acute hyponatremia E87.1 Lumbar paraspinal muscle spasm M62.830 Fibromyalgia M79.7 Low back pain M54.50 Back pain laterality: right Chronicity: acute Sciatica presence: without sciatica BEVERLY (acute kidney injury) N17.9
[2023-06-20] MEDS: iohexol 350 mg/mL 500 mL Btl (per mL) IV (16:20)
--- NOTE | 2023-06-20 18:15 | PC.NURSE ---
Transfer Note Patient transferred to med-surg room 259-2 from ICU via wheelchair. Handoff report given to TERESA De Jesus. Patient oriented to environment and equipment. Covering service notified. Orders reviewed and will continue to monitor. Family notified. Upon trnasfer patient is alert/oriented x4 on 2LNC. No wounds or skin issues noted at this time. All patient belongings transferred with patient and placed upstairs.
[2023-06-20] MEDS: lanolin oint 7 gm 1 APPLIC TOPICAL (20:03)
[2023-06-21] VITALS (11 sets, daily range): BP systolic 103–125; BP diastolic 65–78; PULSE 89–109; RESP 15–18; TEMP 36.4–36.8; O2SAT 88–96
[2023-06-21 00:17] LABS: CA 125 118.9 U/mL (0-35)
[2023-06-21] MEDS: morphine IR 15 mg Tablet PO ×2 (05:47→13:42)
[2023-06-21 05:52] LABS: Basophils % 0.2 %; Eosinophils # 0.1 10^3/uL (0.0-0.8); Hematocrit 33.8 % (36-47); Lymphocytes # 0.5 10^3/uL (0.8-4.8); Lymphocytes % 5.7 %; Mean Corpuscular Hemoglobin 25.5 pg (27-33); Mean Corpuscular Volume 79.9 fl (85-98); Mean Platelet Volume 8.5 fL (7.4-10.4); Monocytes # 1.3 10^3/uL (0.2-0.9); Monocytes % 16.5 %; Neutrophils # 6.13 10^3/uL (1.8-7.7); Nucleated Red Blood Cells % 0 %; Platelet Count 192 10^3/cmm (157-399); Red Blood Count 4.23 10^6/uL (3.85-5.65); Red Cell Distribution Width 16.6 % (12.1-15.1); White Blood Count 8.07 10^3/uL (3.29-11.43)
[2023-06-21] MEDS: albumin 25 G/100 ML BAG 60 G IV ×3 (06:21→22:30)
[2023-06-21 06:41] LABS: Alanine Aminotransferase < 5 U/L (0-33); Albumin Level 4.1 g/dL (3.5-5.2); Alkaline Phosphatase 59 U/L (35-105); Anion Gap 14.5 (5-19); Aspartate Amino Transferase 11 U/L (0-32); Blood Urea Nitrogen 20 mg/dL (8-23); Calcium 8.6 mg/dL (8.5-10.5); Carbon Dioxide 22 mmol/L (22-29); Chloride 94 mmol/L (98-107); Creatinine Clr Calc Pharmacy 44.9149; Globulin 2.6 g/dL (1.3-4.6); Glucose 76 mg/dL (65-115); Osmolality Calculated 263 mOsm/kg (285-295); Potassium 4.5 mmol/L (3.5-5.1); Sodium 126 mmol/L (136-145); Total Bilirubin 0.4 mg/dL (0.15-1.2); Total Protein 6.7 g/dL (6.6-8.7)
[2023-06-21 07:13] LABS: Hepatitis A Antibody IgM Non-Reactive (Nonreactive); Hepatitis B Core AB, Total Non-Reactive (Nonreactive); Hepatitis B Surface AB < 3.5 (11.5-1000); Hepatitis B Surface Antigen Non-Reactive (Nonreactive); Hepatitis C Virus Antibody Non-Reactive (Nonreactive)
[2023-06-21 07:16] LABS: Rapid Plasma Reagin Syphilis Nonreactive (Nonreactive)
[2023-06-21 07:25] LABS: HIV 1 & 2 Antibody Non-Reactive (Non-Reactiv); HIV 1 & 2 Antigen Non-Reactive (Non-Reactiv)
--- NOTE | 2023-06-21 08:33 | US_ITS ---
WS: [id number] ULTRASOUND GUIDED BIOPSY RIGHT INGUINAL LYMPH NODE. HISTORY: suspected neoplastic lymphadenopathy Procedure, risks, and complications are explained to the patient. Consent was obtained. Skin is clean sed with ChloraPrep and anesthetized with 1% buffered lidocaine. Prior imaging studies are reviewed. Abnormal lymph node in the RIGHT groin is targeted. There is small dermatome multiple core biopsies are performed with an 18-gauge Temno needle of the ab normal lymph node in the RIGHT groin. Specimen is placed within both RPMI and formalin. No complicati ons. This is an abnormal lymph node with loss of the normal fatty hilum. Biopsies are performed at [facility] different sites of this lymph node. Patient tolerated the procedure well. Patient transported back to the medical floor after procedure performed. IMPRESSION: Uncomplicated ultrasound-guided core needle biopsy of an abnormal lymph node in the RIGHT groin. Spec imen placed in RPMI and formalin.
--- NOTE | 2023-06-21 10:24 | PM.PN ---
Subjective Subjective: no new complains Medications: Reviewed: Yes Vitals/I&O/Wt Last Vital Signs Temp 97.9 F 06/21/23 09:44 Pulse 107 H 06/21/23 09:44 Resp 15 06/21/23 09:44 BP 103/65 06/21/23 09:44 Pulse Ox 94 06/21/23 09:44 O2 Del Method Nasal Cannula 06/21/23 09:03 O2 Flow Rate 4 06/21/23 09:03 06/20/23 06/21/23 06/21/23 22:59 06:59 14:59 Intake Total 2660 / 2810 100 / 2910 1100 / 1100 Balance 2660 / 2810 100 / 2910 1100 / 1100 Weight last 48 hrs Weight 58.604 kg Weight 57.351 kg Physical Exam Narrative: awake , alert no distress no edema Data 06/21/23 05:39 06/21/23 05:39 A&P Assessment and plan (1) BEVERLY (acute kidney injury): (2) Acute hyponatremia: Plan 1. Hyponatremia: Likely hypovolemic in the setting of poor p.o. intake. s/p IVF , - increase salt tabs to 1 gm tid , continue fluid restriction , noted Low Na , and U osm pending , added lasix 2. BEVERLY: Likely prerenal, s/p normal saline, continue to monitor 3. Hyperkalemia, status post med management , improved 4. Extensive lymphadenopathy concerning for lymphoma 5. Liver cirrhosis and ascites. Patient evaluated using audiovisual cart. Time spent 20 minutes. Attestations Medical Necessity Statement*: per jaquan Coding Level of Care Code Acute Code for [facility] Fwd Diagnoses BEVERLY (acute kidney injury) N17.9 Acute hyponatremia E87.1
[2023-06-21] MEDS: sennosides-docusate Tablet 2 TAB PO ×2 (11:12→17:59)
[2023-06-21] MEDS: cefTRIAXone 2,000 MG in sodium chloride 0.9% (plus) 50 ML 100 MG IV (11:12)
[2023-06-21] MEDS: pantoprazole 40 mg SDV IVP ×2 (11:12→18:00)
[2023-06-21 12:09] LABS: Osmolality Serum 269 mOsm/kg (278-305)
--- NOTE | 2023-06-21 12:46 | P.CONIM_ITS ---
Providers/Reason For Consult 2 Consulting Physician/Specialty*: General Surgery Reason for Consult*: Evaluation for possible colonoscopy. Attending Physician: Maria E Johansen MD Primary Care Provider: Estefani Montaño MD History of Present Illness History of Present Illness Vika Rocha is a 77 year old female who was admitted with intractable abdominal pain. She had a CT scan of the abdomen which showed evidence of extensive lymphadenopathy to be noted on the retroperitoneum, mesenteric area groin aortocaval lymph nodes and mediastinum. Repeat CT scan of the abdomen with contrast showed also evidence of possibility of burst due to needle carcinomatosis as well as questionable thickening of the ascending colon with some haziness of the wall at this level. Patient states that her symptoms have been going on for about 3 to 4 weeks she has developed abdominal distention and pain, per patient report she got surgery for hiatal hernia repair at the end of March and at that moment she was feeling fine. I have been consulted for evaluation to determine if colonoscopy evaluation is needed at this time. Of note, patient had a recent colonoscopy on September 2021 which was negative for evidence of pathology in ascending colon. Medications/Allergies Home Medications Medication Instructions Recorded Confirmed Last Taken Type ascorbic acid (vitamin C) 500 mg 500 mg PO DAILY 07/15/21 06/19/23 09/23/21 History tablet (Vitamin C) calcium carbonate 600 mg-vitamin 1 tab PO DAILY 09/15/21 06/19/23 09/23/21 History D3 5 mcg (200 unit) tablet fexofenadine 180 mg tablet 180 mg PO DAILY PRN Allergy 07/13/22 06/19/23 Unknown Rx (Allergy Relief (fexofenadine)) Symptoms 90 days #90 tabs fluticasone propionate 50 See Rx Instructions .Route 02/16/23 06/19/23 Unknown Rx mcg/actuation nasal .COMPLEX #48 grams spray,suspension acetaminophen 500 mg tablet 1,000 mg (2 x 500 mg) PO Q6H PRN 06/12/23 06/19/23 Unknown Rx pain #60 tabs cyclobenzaprine 10 mg tablet 10 mg PO TID #30 tabs 06/12/23 06/19/23 Unknown Rx tramadol 50 mg tablet 50 mg PO BID PRN pain #10 tabs 06/15/23 06/19/23 Unknown Rx ferrous sulfate 325 mg (65 mg 325 mg PO DAILY 06/19/23 06/19/23 Unknown History iron) tablet (Iron (ferrous sulfate)) pantoprazole 40 mg tablet,delayed 40 mg PO DAILY 06/19/23 06/19/23 Unknown History release Allergies Allergy/AdvReac Type Severity Reaction Status Date / Time aspirin Allergy Severe ALGY-Swell Verified 06/18/23 17:36 Lip/Tongue/Throat Current Medications Generic Name Dose Route Start Last Admin Trade Name Freq PRN Reason Stop Dose Admin Albumin Human 25 g in 100 mls @ 60 mls/hr 06/19/23 07:00 06/21/23 09:55 Albumin IV Infused Q8H AUGUSTUS Infusion Ceftriaxone Sodium 2,000 mg/ 50 mls @ 100 mls/hr 06/19/23 09:00 06/21/23 12:19 Sodium Chloride IV Infused DAILY AUGUSTUS Infusion Protocol Lanolin 1 applic 06/20/23 19:22 06/20/23 20:03 Lanolin Oint 7 Gm TOPICAL 1 applic PRN PRN Administration DRYNESS Morphine Sulfate 15 mg 06/18/23 22:39 06/21/23 05:47 Morphine Ir 15 Mg Tablet PO 15 mg Q6H PRN Administration MODERATE PAIN Pantoprazole Sodium 40 mg 06/19/23 09:00 06/21/23 11:12 Pantoprazole 40 Mg Sdv IVP 40 mg BID AUGUSTUS Administration Senna/Docusate Sodium 2 tab 06/19/23 09:00 06/21/23 11:12 Sennosides-Docusate Tablet PO 2 tab BID AUGUSTUS Administration PFSH Acute 2 PFSH: Medical History (Updated 06/21/23 @ 12:54 by Liam Figueroa MD) Mixed hyperlipidemia GI bleed If continues to be of concern about GI to be a source of patient's anemia a capsule endoscopy would be the next step. Chronic dental infection Insomnia Fibromyalgia Chronic pain syndrome Chronic GERD Surgical History History of colonoscopy H/O knee surgery H/O: hysterectomy Family History Mother Cancer Lung Cancer Father Cancer Lung Cancer Hypertension Social History Smoking and tobacco/nicotine status: never used tobacco/nicotine Second hand smoke exposure: No Alcohol intake: never Substance/Drug Use: never Female Reproductive History: Spontaneous abortions: No Vitals/I&O/Wt Last Vital Signs Temp 97.9 F 06/21/23 09:44 Pulse 107 H 06/21/23 09:44 Resp 15 06/21/23 09:44 BP 103/65 06/21/23 09:44 Pulse Ox 94 06/21/23 09:44 O2 Del Method Nasal Cannula 06/21/23 09:03 O2 Flow Rate 4 06/21/23 09:03 06/20/23 06/21/23 06/21/23 22:59 06:59 14:59 Intake Total 2660 / 2810 100 / 2910 1150 / 1150 Balance 2660 / 2810 100 / 2910 1150 / 1150 Weight last 48 hrs Weight 129 lb 3.2 oz Weight 126 lb 7 oz Physical Exam 2 GI: OTHER: Abdomen is mildly distended, minimally tender to palpation, ascitic wave positive. Data 06/21/23 05:39 06/21/23 05:39 A&P Assessment and plan (1) Peritoneal carcinomatosis: Plan After complete history physical examination and review of all available clinical data the following is my assessment. Patient appears to present with fairly advanced neoplastic process that appears to have extended into the peritoneum and also causing significant ascites. We do negative colonoscopy only 2 years ago the likelihood of this representing primary colon cancer is low, in the other she does have an elevated CEA but this can also be due to additional intra-abdominal pathology. Patient has undergone a lymph node biopsy by interventional radiology today. I think the best course of action for her will be to wait for pathology of lymph node biopsy as this may be able to identify the cells and guide therapy. I do not think a colonoscopy is indicated at this moment in time as the risks of colonoscopy outweigh the benefits that the patient will receive from the endoscopic evaluation since pathological diagnosis can be obtained from the sample obtained from the lymph node. In addition the presence of peritoneal carcinomatosis and ascites makes colonoscopy increased risk for morbidity and even mortality. My recommendation will be that therapy can be guided with the results of lymph node biopsy.. In addition patient should remain in the low residue diet and with frequent use of stool softeners to prevent constipation and further worsening of her symptoms. No other additional surgical intervention is recommended at this time. Once results of pathology are obtained medical oncology evaluation should be recommended for discussion regarding further steps. Coding Level of Care Code 49447 Diagnoses Peritoneal carcinomatosis C78.6
[2023-06-21 13:10] LABS: Osmolality Urine 468 mOsm/kg (50-1200)
[2023-06-21] MEDS: FUROsemide 20 mg Tablet PO (16:00)
[2023-06-21] MEDS: sodium chloride 1 gm Tablet PO ×2 (16:00→20:09)
--- NOTE | 2023-06-21 16:54 | USR_ITS ---
PROCEDURE INFORMATION: Exam: US Pelvis, Transvaginal Exam date and time: 06/21/2023 11:15 PM Age: 77 years old Clinical indication: Abnormal findings; Abnormal imaging test; Prior surgery; Surgery date: 6+ months; Surgery type: Hyst; Additional info: Concern for ovarian malignancy. No history of recent trauma or surgery is provided. TECHNIQUE: Imaging protocol: Real-time transvaginal pelvic ultrasound with image documentation. Transvaginal imaging was used for better evaluation of the endometrium, adnexa, and/or cervix. 235image(s) are provided. COMPARISON: 1. CT chest abdpel w/*[id number] 06/20/2023 4:11 PM 2. US abdomen lmt fluid [id number] 06/20/2023 4:[address] abdomen pelvis wo con [id number] 06/18/2023 6:10 PM FINDINGS: Tubes, catheters and devices: The bladder is incompletely distended with history of Ugarte catheter placement. Uterus: The uterus is not appreciated corresponding with history of previous hysterectomy and previous descriptions. Right ovary/adnexa: The right ovary, adnexa is obscured. Consider if there is history of removal. Left ovary/adnexa: The left ovary, adnexa is obscured. Consider if there is history of removal. Appendix: Some of the previously described areas of masslike and dejah enlargement or less conspicuous on ultrasound currently. Intraperitoneal space: There is abdominal, pelvic fluid demonstrated. Other findings: There is bowel-gas, penetration artifact. No other significant interval changes are appreciated. US/US transvaginal [id number] IMPRESSION: 1. There is incomplete visualization of the uterine and ovarian, adnexal structures. There is history of hysterectomy provided. If there is clinical concern for residual then consider tumor marker laboratory values. 2. There is abdominal and pelvic fluid present corresponding to the previous descriptions.
--- NOTE | 2023-06-21 16:56 | PM.PN ---
Subjective Subjective: Status post ultrasound-guided lymph node biopsy today. Awaiting results. Sodium up to 126. Patient reports abdominal distention. No vomiting or nausea. States that she has been dealing with increased draining at urination for the past several weeks. Medications: Reviewed: Yes Vitals/I&O/Wt Last Vital Signs Temp 98.3 F 06/21/23 16:00 Pulse 98 06/21/23 16:00 Resp 16 06/21/23 16:00 BP 119/78 06/21/23 16:00 Pulse Ox 95 06/21/23 16:00 O2 Del Method Room Air 06/21/23 16:00 O2 Flow Rate 4 06/21/23 09:03 06/21/23 06/21/23 06/21/23 06:59 14:59 22:59 Intake Total 100 / 2910 1150 / 1150 Balance 100 / 2910 1150 / 1150 Weight last 48 hrs Weight 58.604 kg Weight 57.351 kg Physical Exam Narrative: General: No acute distress, AO x3 HEENT: PERRLA, pupils bilaterally equal and reactive, pallors not present Chest: Normal vesicular breath sounds, no added sounds, equal good air entry bilaterally CVS: S1-S2 regular, no murmurs, no tachycardia, no gallops, no rubs Abdomen: Soft, nontender, no organomegaly, bowel sounds present Neuro: No focal deficits, no facial deformity, AO x3, power 5/5 in all limbs Data 06/21/23 05:39 06/21/23 05:39 A&P Assessment and plan (1) Lymphadenopathy, abdominal: (2) Lymphoma: (3) Constipation: (4) Chronic GERD: (5) Gastritis and duodenitis: (6) Abdominal ascites: (7) Liver cirrhosis: (8) Acute hyponatremia: (9) Lumbar paraspinal muscle spasm: (10) Fibromyalgia: (11) Low back pain: Qualifiers: Back pain laterality: right Chronicity: acute Sciatica presence: without sciatica Qualified Code(s): M54.50 - Low back pain, unspecified (12) BEVERLY (acute kidney injury): Plan Severe constipation Will give her mag citrate and lactulose Keep her on clear liquid diet Patient is passing flatus Last bowel movement was 10 days ago Severe/critical low hyponatremia Admit to ICU Normal saline 100 mill per hour next BMP every 4 hours Seen regarding hypertonic send will be made after checking neck sodium levels Nephro consulted Clinically patient is hypovolemic hyponatremia Last proper meal was couple of days ago Sodium 123 this morning. Potassium 5.5 last night. We will repeat at this time. Recheck BMP. BEVERLY related to dehydration anticipating improvement with IV fluid hydration Liver cirrhosis with ascites Start ceftriaxone 2 g daily Abdominal pain No previous diagnosis of liver disease HIV or hepatitis Patient does not drink alcohol, does not smoke No significant anemia or thrombocytopenia Rule out lymphoma significant lymphadenopathy noted on CT abdomen pelvis Request LDH and uric acid Patient is full code, discussed with the patient and her at the bedside Clear liquid diet Added DVT prophylaxis as well B-cell symptoms Weight loss, nocturnal fever, diaphoresis, lymphadenopathy Patient will need diagnostic biopsy of her lymph node to rule out lymphoma which could happen on Tuesday Please stop DVT prophylaxis on Tuesday midnight Patient will need radiology consult Plan for today June 20, 2023. Sodium improving to 124 today. Continue normal saline at 75 cc an hour and p.o. salt supplementation. Appreciate nephrology recommendations. Cancel peritoneal lymph node biopsy today. Will instead complete malignancy evaluation by obtaining CT of the chest abdomen and pelvis with IV and oral contrast. Potentially patient may have additional lymph node involvement in the supraclavicular or infra axillary areas versus may have more easily accessible lymph nodes in the lung. Alternately patient reports a family history of lung cancer affecting both her mother and father, potentially may have lung cancer given also concomitant hyponatremia and possibility of SIADH. She does not yet have a chest x-ray or other lung imaging since October 2022. Will additionally obtain Ca1 25 tumor markers levels. Patient reports a past history of hysterectomy and removal of a single ovary due to infection from an IUD. She still has 1 ovary retained. Not very well-visualized on CT without contrast. Will obtain CT with contrast today. Possibly also paracentesis if enough fluid is encountered on CT abdomen. Reviewed CTA of the chest from October 2022 which had shown a large hiatal hernia for which patient had surgery in March 2023. No immediate perioperative complications per patient history. Incidentally adenopathy was also noted in the upper abdomen on the chest CT with enlarged aortocaval lymph nodes. Will additionally check HIV screen, hepatitis screen and syphilis screen to assess for lymphadenopathy. Patient denies any exposure to farm animals. She has a pet dog at home. No exposure to cats or other exotic pets. Noted cirrhotic contour of the liver she has a history of drinking alcohol excessively several years ago, currently does not drink at all. Check hepatitis C screen Plan for today June 21, 2023. CT of the chest abdomen and pelvis with contrast was completed yesterday. Study showed probably neoplastic mediastinal and epicardial lymphadenopathy no sign of pulmonary neoplasm. Additionally seen diffuse probably neoplastic lymphadenopathy throughout the retroperitoneum mesentery abraham hepatis pelvis and inguinal regions concerning for lymphoma versus metastases. Infiltrative soft tissue density noted involving the right lower quadrant mesentery finding in association with ascites raise suspicion for peritoneal carcinomatosis. There is limited evaluation of the colonic wall however questionable thickening of the ascending colonic wall and ill-definition of the proximal transverse colon with associated mesenteric soft tissue density was noted. Colonic neoplasm could not be excluded. General surgery consult was obtained given these findings to assess for colonoscopy. Patient's last colonoscopy dates back to September 2021 which was performed by Dr. Truong at the time. Study negative for any suspicious lesions, showed diverticulosis without diverticulitis. Will obtain records from recent surgery at [facility] to see if any concerning intra-abdominal findings were encountered during her laparoscopic hiatal hernia surgery. Patient states some biopsies were taken, however remembers these to be from an EGD not necessarily from any concerning lymph nodes. Additional concern for possible ovarian malignancy given elevated CA125 at 118.. Patient currently only has 1 ovary, ordered transvaginal ultrasound for better characterization of the remaining ovary which is not well-visualized on CT of the abdomen..Check bladder scan. reduce empric CTX dose from 2 g iv daily to 1 g iv daily for possible UTI given + LA on urine . Optimize pain control by using oxycodone APAP 08/04/2024 every 6 hours as needed. Additionally IV morphine ordered as needed.. Attestations Medical Necessity Statement*: Ongoing evaluation for suspected malignancy Coding Level of Care Code Acute Code for Chg Fwd High MDM includes number and complexity of problems actively addressed during encounter, amount and/or complexity of data reviewed/ordered and described risk of complication, morbidity or mortality of management as documented Diagnoses Lymphadenopathy, abdominal R59.0 Lymphoma C85.90 Constipation K59.00 Chronic GERD K21.9 Gastritis and duodenitis K29.90 Abdominal ascites R18.8 Liver cirrhosis K74.60 Acute hyponatremia E87.1 Lumbar paraspinal muscle spasm M62.830 Fibromyalgia M79.7 Low back pain M54.50 Back pain laterality: right Chronicity: acute Sciatica presence: without sciatica BEVERLY (acute kidney injury) N17.9
--- NOTE | 2023-06-21 17:49 | XRR_ITS ---
PROCEDURE INFORMATION: Exam: XR Abdomen Exam date and time: 06/21/2023 5:12 PM Age: 77 years old Clinical indication: Other: Evaluate for perforation; Additional info: Evalute for perforation vs obstrcution TECHNIQUE: Imaging protocol: Radiologic exam of the abdomen. Views: Frontal supine view of the abdomen. 1 View. COMPARISON: CT chest abdpel w/*[id number] 06/20/2023 4:11 PM FINDINGS: Gastrointestinal tract: There is scattered Gastrografin throughout the colon. I see no bowel distension. Bones/joints: Unremarkable. XR/XR abdomen 1V* [id number] IMPRESSION: No acute findings.
[2023-06-21] MEDS: urea 15 gm Powder PO (17:59)
[2023-06-21] MEDS: cefTRIAXone 1,000 MG in sodium chloride 0.9% (plus) 50 ML 100 MG IV (18:00)
[2023-06-21] MEDS: FUROsemide 10 mg/mL SDV 2mL 20 MG IVP (18:30)
[2023-06-21] MEDS: oxyCODONE-APAP 5-325 mg Tablet 1 TAB PO (22:30)
[2023-06-22] VITALS (7 sets, daily range): BP systolic 104–124; BP diastolic 66–73; PULSE 103–113; RESP 18–20; TEMP 36.2–36.8; O2SAT 90–94
[2023-06-22] MEDS: urea 15 gm Powder PO (08:15)
[2023-06-22] MEDS: sennosides-docusate Tablet 2 TAB PO (08:15)
[2023-06-22] MEDS: pantoprazole 40 mg SDV IVP ×2 (08:15→17:10)
[2023-06-22] MEDS: FUROsemide 20 mg Tablet PO ×2 (08:16→15:02)
[2023-06-22] MEDS: tamsulosin 0.4 mg Capsule 0.400000000000000022 MG PO (08:16)
[2023-06-22] MEDS: sodium chloride 1 gm Tablet PO ×2 (08:16→17:11)
[2023-06-22] MEDS: albumin 25 G/100 ML BAG 100 G IV (08:16)
[2023-06-22] MEDS: oxyCODONE-APAP 5-325 mg Tablet 1 TAB PO (09:55)
--- NOTE | 2023-06-22 10:06 | PC.SOCIAL ---
IMM Update pg 2 of IMM updated and reviewed w/ patient. Copy provided and copy dated, initialed and placed in chart.
[2023-06-22 11:45] LABS: Basophils % 0.3 %; Eosinophils # 0.1 10^3/uL (0.0-0.8); Eosinophils % 0.6 %; Hematocrit 30.9 % (36-47); Lymphocytes # 0.5 10^3/uL (0.8-4.8); Lymphocytes % 6.5 %; Mean Corpuscular HGB Conc 32.7 g/dL (30-55); Mean Corpuscular Hemoglobin 25.5 pg (27-33); Mean Platelet Volume 9.5 fL (7.4-10.4); Monocytes # 1.3 10^3/uL (0.2-0.9); Monocytes % 16.5 %; Neutrophils # 5.97 10^3/uL (1.8-7.7); Neutrophils % 75.6 %; Nucleated Red Blood Cells % 0 %; Platelet Count 172 10^3/cmm (157-399); Red Blood Count 3.96 10^6/uL (3.85-5.65); Red Cell Distribution Width 16.4 % (12.1-15.1); White Blood Count 7.89 10^3/uL (3.29-11.43)
--- NOTE | 2023-06-22 11:51 | P.PN_ITS ---
Subjective 2 Subjective: no new c/o Medications: Reviewed: Yes Vitals/I&O/Wt Last Vital Signs Temp 98.1 F 06/22/23 08:00 Pulse 103 H 06/22/23 08:00 Resp 18 06/22/23 09:55 BP 122/73 06/22/23 08:00 Pulse Ox 91 06/22/23 08:00 O2 Del Method Room Air 06/22/23 08:00 O2 Flow Rate 4 06/21/23 09:03 06/21/23 06/22/23 06/22/23 22:59 06:59 14:59 Intake Total 320 / 1470 580 / 2050 220 / 220 Output Total 1999 / 1999 Balance 320 / 1470 -1420 / 50 220 / 220 Weight last 48 hrs Weight 59.421 kg Weight 58.604 kg Physical Exam 2 Narrative: awake , alert no distress no edema Urinary Catheter Management: Ugarte: Cath Placed During This Visit: yes Reason for Continuing Indwelling Catheter: Acute Urinary Retention or Obstruction Urinary Catheter Date of Insertion: 06/21/23 Urinary Catheter Time of Insertion: 15:00 Data 06/22/23 11:18 06/21/23 05:39 A&P Assessment and plan (1) BEVERLY (acute kidney injury): (2) Acute hyponatremia: Plan 1. Hyponatremia: Likely hypovolemic in the setting of poor p.o. intake. s/p IVF , nA 124-127 range - increase salt tabs to 1 gm tid , continue fluid restriction , noted Low Na , and U osm pending , added lasix 2. BEVERLY: Likely prerenal, s/p normal saline, continue to monitor 3. Hyperkalemia, status post med management , improved 4. Extensive lymphadenopathy concerning for lymphoma vs mets - s/p LN biopsy 5. Liver cirrhosis and ascites. Patient evaluated using audiovisual cart. Time spent 20 minutes. Attestations 2 Medical Necessity Statement*: per [facility] Coding Level of Care Code Acute Code for [facility] Fwd Diagnoses BEVERLY (acute kidney injury) N17.9 Acute hyponatremia E87.1
[2023-06-22 12:02] LABS: Alanine Aminotransferase < 5 U/L (0-33); Albumin Level 4.4 g/dL (3.5-5.2); Alkaline Phosphatase 54 U/L (35-105); Aspartate Amino Transferase 10 U/L (0-32); Blood Urea Nitrogen 33 mg/dL (8-23); Carbon Dioxide 20 mmol/L (22-29); Chloride 93 mmol/L (98-107); Creatinine Clr Calc Pharmacy 40.6703; Globulin 2.6 g/dL (1.3-4.6); Glucose 98 mg/dL (65-115); Osmolality Calculated 271 mOsm/kg (285-295); Sodium 127 mmol/L (136-145); Total Bilirubin 0.6 mg/dL (0.15-1.2)
--- NOTE | 2023-06-22 14:25 | PM.DCS ---
Discharge Providers Date of Admission: 06/18/23 20:56 Date of Discharge: June 22, 2023 Attending Provider at Admission: Maverick Coats MD Attending Provider at Discharge: Maria E Johansen MD Primary Care Provider: Estefani Montaño MD Diagnoses at Discharge Discharge Diagnosis (1) BEVERLY (acute kidney injury): Status: Acute (2) Acute hyponatremia: Status: Acute (3) Suspected malignant neoplasm: Status: Acute (4) Generalized lymphadenopathy: Status: Acute Reason for Visit Reason for Visit: back pain, no drink or eat, no bowel movement Hospital Course Hospital Course 77-year-old female with past medical history of hyperlipidemia, gastritis, duodenitis, anemia, fibromyalgia, chronic GERD, large hiatal hernia status postrepair in March 2023 at [place], presented to the hospital with progressively worsening back pain over the last 2 to 4 weeks. The pain was unbearable to the point of where she was not able to tolerate any po intake. She was found to have evidence of hyponatremia with sodium at 119. Nephrology was consulted, this was thought to be related to prerenal from poor p.o. intake. She received hydration with normal saline, thereafter transition to salt tablets. Sodium improved to 126 by the time of discharge. She is being transitioned home with oral salt tablets to be taken twice a day. Hospital course was also notable for discovery of generalized lymphadenopathy involving the mediastinum, epicardial lymph nodes, diffuse abdominal lymph nodes, and possibility of peritoneal carcinomatosis. Overall suspicion is that of malignant lymphadenopathy, primary lymphoma versus secondary metastases. She underwent lymph node biopsy from an inguinal lymph node on June 21, 2023, results of which are currently awaited at the time of discharge. Recommended to follow-up with primary care provider within the next week to follow-up on these biopsy results and thereafter to get referral to oncology based on biopsy results. She was noted to have elevated levels of CA125, has a past history of hysterectomy and unilateral oophorectomy related to infection in her 20s. Transvaginal ultrasound was obtained to evaluate the 1 remaining ovary, however remain nonconclusive. For her pain she was treated with oral oxycodone APAP and as needed morphine. Currently reports pain is controlled with oral opiates which are being used at the time of discharge as well. Her pain is improved. Currently she is bothered mostly by increased abdominal distention. Small amount of acetic fluid was noted in her abdomen, however not amenable to paracentesis as there is no safe window to approach. She has good bowel sounds and a benign abdominal exam. Likely that gas distention along with slow transit related to opiates may be contributing. CT of her abdomen and pelvis during admission had shown the lymphadenopathy but otherwise no acute abdominal events. X-ray of the abdomen repeated on June 21, 2023 without any signs of perforation or ileus. Recommended to continue MiraLAX at discharge. Additionally patient had reported difficulty with urinary stream, hesitancy, increased straining at micturition. She has not previously seen a urologist. Trial of Flomax 0.4 mg daily was initiated. No obvious obstructing calculi or external compression seen on CT scan. Ugarte catheter was placed transiently on June 21, 2023, only yielded about 250 cc of urine. Physical Exam Narrative: General: No acute distress, AO x3 HEENT: PERRLA, pupils bilaterally equal and reactive, pallors not present Chest: Normal vesicular breath sounds, no added sounds, equal good air entry bilaterally CVS: S1-S2 regular, no murmurs, no tachycardia, no gallops, no rubs Abdomen: Soft, nontender, no organomegaly, bowel sounds present Neuro: No focal deficits, no facial deformity, AO x3, power 5/5 in all limbs Extremities: no edema, clubbing or cyanosis Urinary Catheter Management: Ugarte: Cath Placed During This Visit: yes, but has since been removed by the nurse Reason for Continuing Indwelling Catheter: Acute Urinary Retention or Obstruction Urinary Catheter Date of Insertion: 06/21/23 Urinary Catheter Time of Insertion: 15:00 Date Urinary Catheter Removed: 06/22/23 Time Urinary Catheter Discontinued: 13:00 Discharge Data Studies Completed and Pending Completed Studies During Hospitalization Category Date Time Status CT abdomen pelvis wo con [id number] Stat Cat Scan 06/18/23 17:[address] chest abdomen pelvis [CT chest abdpel w/*[id number] Cat Scan 06/20/23 12:54 Completed ] Routine XR abdomen 1V* [id number] Stat Exams 06/21/23 17:49 Completed CV. echo complete* [id number] Routine Ultrasound 06/19/23 06:00 Completed US abdomen lmt fluid [id number] Routine Ultrasound 06/20/23 12:51 Completed US abdomen lmt fluid [id number] Routine Ultrasound 06/22/23 17:49 Completed US biopsy lymph node [id number] Routine Ultrasound 06/21/23 08:33 Completed US transvaginal [id number] Routine Ultrasound 06/21/23 16:54 Completed Pending at discharge Category Date Time Status Urine Culture Routine Lab 06/21/23 18:11 Received Pathology: Surgical [PTH] Routine Pth 06/21/23 10:01 Received Radiology Impressions Abdomen/Pelvis CT 06/18/23 17:55 IMPRESSION: 1. Mesenteric and retroperitoneal lymphadenopathy raises concern for lymphoma. CT scan abdomen/pelvis with IV contrast recommended for further evaluation. 2. Small bilateral pleural effusions with adjacent compressive atelectasis. 3. Mildly nodular liver contour raises concern for cirrhosis. 4. There is a moderate amount of free intraperitoneal fluid/ascites in the abdomen/pelvis. 5. Colonic constipation is present. Chest/Abdomen/Pelvis CT 06/20/23 12:54 IMPRESSION: 1. Probably neoplastic mediastinal and epicardial lymphadenopathy. 2. Small simple dependent bilateral pleural effusions. 3. Segmental compressive atelectasis in both lower lobes. 4. No sign of pulmonary neoplasm. IMPRESSION: 1. Diffuse probably neoplastic lymphadenopathy throughout the retroperitoneum, mesentery, abraham hepatis, pelvis and inguinal regions. Lymphoma versus metastases. 2. Infiltrative soft tissue density involving the right lower quadrant mesentery. This finding in association with ascites raises suspicion for peritoneal carcinomatosis. 3. Limited evaluation of the colonic wall due to the presence of high density intraluminal contrast. There is questionable thickening of the ascending colonic wall and ill definition of the proximal transverse colonic wall associated with infiltrative mesenteric soft tissue density. Possible colonic neoplasm versus secondary involvement of the mesentery and colon. 4. Incidental findings above. Transvaginal US 06/21/23 16:54 IMPRESSION: 1. There is incomplete visualization of the uterine and ovarian, adnexal structures. There is history of hysterectomy provided. If there is clinical concern for residual then consider tumor marker laboratory values. 2. There is abdominal and pelvic fluid present corresponding to the previous descriptions. Abdomen X-Ray 06/21/23 17:49 IMPRESSION: No acute findings. Laboratory Results WBC 7.89 10^3/uL (3.29-11.43) 06/22/23 11:18 RBC 3.96 10^6/uL (3.85-5.65) 06/22/23 11:18 Hgb 10.10 g/dL (11.27-16.99) L 06/22/23 11:18 Hct 30.9 % (36-47) L 06/22/23 11:18 MCV 78.0 fl (85-98) L 06/22/23 11:18 MCH 25.5 pg (27-33) L 06/22/23 11:18 MCHC 32.7 g/dL (30-55) 06/22/23 11:18 RDW 16.4 % (12.1-15.1) H 06/22/23 11:18 Plt Count 172 10^3/cmm (157-399) 06/22/23 11:18 MPV 9.5 fL (7.4-10.4) 06/22/23 11:18 Neut % (Auto) 75.6 % 06/22/23 11:18 Lymph % (Auto) 6.5 % 06/22/23 11:18 [place] % (Auto) 16.5 % 06/22/23 11:18 Eos % (Auto) 0.6 % 06/22/23 11:18 Baso % (Auto) 0.3 % 06/22/23 11:18 Neut # (Auto) 5.97 10^3/uL (1.8-7.7) 06/22/23 11:18 Lymph # (Auto) 0.5 10^3/uL (0.8-4.8) L 06/22/23 11:18 [place] # (Auto) 1.3 10^3/uL (0.2-0.9) H 06/22/23 11:18 Eos # (Auto) 0.1 10^3/uL (0.0-0.8) 06/22/23 11:18 Baso # (Auto) 0.0 10^3/uL (0.0-0.1) 06/22/23 11:18 Nucleated RBC % (auto) 0 % 06/22/23 11:18 Nucleated RBCs # 0.0 /100WBC 06/22/23 11:18 Sodium 127 mmol/L (136-145) L 06/22/23 11:18 Potassium 4.0 mmol/L (3.5-5.1) 06/22/23 11:18 Chloride 93 mmol/L (98-107) L 06/22/23 11:18 Carbon Dioxide 20 mmol/L (22-29) L 06/22/23 11:18 Anion Gap 18.0 (5-19) 06/22/23 11:18 BUN 33 mg/dL (8-23) H 06/22/23 11:18 Creatinine 1.0 mg/dL (0.5-0.9) H 06/22/23 11:18 GFR Calculation Not Reportable 06/22/23 11:18 Glucose 98 mg/dL (65-115) 06/22/23 11:18 Serum Osmolality 269 mOsm/kg (278-305) L 06/18/23 23:39 Calculated Osmolality 271 mOsm/kg (285-295) L 06/22/23 11:18 Uric Acid 7.5 mg/dL (2.4-5.7) H 06/18/23 17:45 Calcium 9.0 mg/dL (8.5-10.5) 06/22/23 11:18 Magnesium 2.6 mg/dL (1.7-2.3) H 06/20/23 04:25 Total Bilirubin 0.6 mg/dL (0.15-1.2) 06/22/23 11:18 AST 10 U/L (0-32) 06/22/23 11:18 ALT < 5 U/L (0-33) 06/22/23 11:18 Alkaline Phosphatase 54 U/L (35-105) 06/22/23 11:18 Lactate Dehydrogenase 322 U/L (135-214) H 06/18/23 Unknown C-Reactive Protein 94.2 mg/L (0.0-4.9) H 06/19/23 04:14 Total Protein 7.0 g/dL (6.6-8.7) 06/22/23 11:18 Albumin 4.4 g/dL (3.5-5.2) 06/22/23 11:18 Globulin 2.6 g/dL (1.3-4.6) 06/22/23 11:18 Tumor Marker AFP 2.0 ng/mL (0-8.3) 06/18/23 Unknown CA 125 Antigen 118.9 U/mL (0-35) H 06/20/23 09:03 TSH 1.58 uIU/mL (0.27-4.20) 06/18/23 21:57 Urine Color Yellow (Yellow) 06/18/23 19:14 Urine Appearance Clear (CLEAR) 06/18/23 19:14 Urine pH 6.5 (5-7) 06/18/23 19:14 Ur Specific Magazine 1.010 (1.005-1.030) 06/18/23 19:14 Urine Protein Trace (Negative) 06/18/23 19:14 Urine Glucose (UA) Norm (Normal) 06/18/23 19:14 Urine Ketones 1+ (Negative) H 06/18/23 19:14 Urine Blood 2+ (Negative) H 06/18/23 19:14 Urine Nitrate Negative (Negative) 06/18/23 19:14 Urine Bilirubin 1+ (Negative) H 06/18/23 19:14 Urine Urobilinogen Neg mg/dL (Negative) 06/18/23 19:14 Ur Leukocyte Esterase Trace (Negative) H 06/18/23 19:14 Urine RBC 5-10 /hpf (0-2) H 06/18/23 19:14 Urine WBC 5-10 /hpf (0-5) H 06/18/23 19:14 Ur Squamous Epith Cells 0-4 /hpf (0-5) H 06/18/23 19:14 Amorphous Sediment 1+ /hpf 06/18/23 19:14 Urine Bacteria 1+ /hpf (NONE) H 06/18/23 19:14 Hyaline Casts 0-4 /lpf H 06/18/23 19:14 RBC Casts 0-4 /lpf 06/18/23 19:14 Urine Mucus 2+ /hpf 06/18/23 19:14 Urine Osmolality 468 mOsm/kg (50-1200) 06/18/23 23:36 Ur Random Microalbumin 2 ug/dL (0-20) 06/18/23 19:14 Ur Random Sodium 19 mmol/L 06/18/23 19:14 Urine Creatinine 179 mg/dL (28-217) 06/18/23 19:14 Microalb/Creat Ratio 11 mg/dL (0-20) 06/18/23 19:14 RPR Nonreactive (Nonreactive) 06/21/23 05:39 RPR Titer/FTA Cancelled 06/21/23 05:39 RPR w/Rflx to Titer Cancelled 06/21/23 05:39 Hepatitis A IgM Ab Non-reactive (Nonreactive) 06/21/23 05:39 Hep Bs Antigen Non-reactive (Nonreactive) 06/21/23 05:39 Hep Bs Antibody < 3.5 (11.5-1000) L 06/21/23 05:39 Hep B Core Total Ab Non-reactive (Nonreactive) 06/21/23 05:39 Hepatitis C Antibody Non-reactive (Nonreactive) 06/21/23 05:39 HIV 1&2 Ab & HIV 1 Ag Non-reactive (Non-Reactiv) 06/21/23 05:39 HIV 1&2 Antibody Non-reactive (Non-Reactiv) 06/21/23 05:39 Vitals Last Vital Signs Temp 98.1 F 06/22/23 12:00 Pulse 110 H 06/22/23 12:00 Resp 19 H 06/22/23 12:00 BP 104/66 06/22/23 12:00 Pulse Ox 90 06/22/23 12:00 O2 Del Method Room Air 06/22/23 12:00 O2 Flow Rate 4 06/21/23 09:03 Discharge Plan Discharge Patient Disposition: Home Condition: Stable Prescriptions: No Action fexofenadine [Allergy Relief (fexofenadine)] 180 mg tablet 180 mg PO DAILY PRN (Reason: Allergy Symptoms) 90 Days Qty: 90 3RF tramadol 50 mg tablet 50 mg PO BID PRN (Reason: pain) Qty: 10 0RF fluticasone propionate 50 mcg/actuation spray,suspension See Rx Instructions .ROUTE .COMPLEX Qty: 48 2RF Dose Instruction: USE 1 SPRAY IN EACH NOSTRIL TWICE DAILY Rx Instructions: USE 1 SPRAY IN EACH NOSTRIL TWICE DAILY ascorbic acid (vitamin C) [Vitamin C] 500 mg Tablet 500 mg PO DAILY calcium carbonate-vitamin D3 600 mg-5 mcg (200 unit) tablet 1 tab PO DAILY pantoprazole 40 mg tablet,delayed release (DR/EC) 40 mg PO DAILY Iron (ferrous sulfate) 325 mg (65 mg iron) Tablet 325 mg PO DAILY cyclobenzaprine 10 mg tablet 10 mg PO TID Qty: 30 0RF acetaminophen 500 mg tablet 1,000 mg PO Q6H PRN (Reason: pain) Qty: 60 0RF Discharge Orders: Discharge Order (Routine); Ordered 06/22/23 Ordered By: Maria E Johansen Referrals: Estefani Montaño MD [Primary Care Provider] - 06/28/23 11:00 am Patient Instructions: Opioid Safety Discharge Attestations Time Spent in Discharge Care*: greater than 30 min Quality Metrics Clinical Quality Measures [ No reported AMI, CVA or VTE this stay] Coding Level of Care Code Acute Code for Chg Fwd Diagnoses BEVERLY (acute kidney injury) N17.9 Acute hyponatremia E87.1 Suspected malignant neoplasm R68.89 Generalized lymphadenopathy R59.1
[2023-06-22] MEDS: lidocaine 2% viscous 15 ML, aluminum-mag hydrox-simethicon 30 ML, sucralfate oral liq 1 GM PO (15:01)
[2023-06-22] MEDS: albumin 25 G/100 ML BAG 200 G IV ×2 (15:02→22:23)
[2023-06-22] MEDS: metoclopramide 5 mg/mL SDV 2 mL IVP ×2 (15:02→22:23)
[2023-06-22] MEDS: cefTRIAXone 1,000 MG in sodium chloride 0.9% (plus) 50 ML 100 MG IV (17:10)
--- NOTE | 2023-06-22 17:49 | US_ITS ---
WS: [id number] INDICATION: Ascites TECHNIQUE: Ultrasound abdomen limited FINDINGS: Ultrasound abdomen limited. Distended bowel. Mild ascites in the RIGHT abdomen. No ascites in the LEFT abdomen. Insufficient fluid for paracentesis. IMPRESSION: Distended bowel. Mild ascites in the RIGHT abdomen. Insufficient fluid for paracentesis.
--- NOTE | 2023-06-22 21:21 | ECG_ITS ---
[facility] Test Date: 2023-06-22 Pat Name: Vika Rocha Department: Room: 259 Gender: Female Research Electrician: : 1945 Requested By: Maverick Coats Order Number: [id number] Zulema MD: Mahesh Jeter M.D. Measurements Intervals [place] Rate: 146 P: 42 OR: 155 QRS: -15 QRSD: 84 T: 79 QT: 277 QTc: 432 Interpretive Statements SINUS TACHYCARDIA LOW QRS VOLTAGE IN EXTREMITY LEADS [QRS DEFLECTION < 0.5 mV IN LIMB LEADS] POSSIBLE ANTERIOR MYOCARDIAL INFARCTION , OF INDETERMINATE AGE [30 ms Q WAVE IN V3/V4, OR R < 0.2 mV IN V4] Compared to ECG 07/15/2021 11:43:17 Low QRS voltage now present Myocardial infarct finding now present T-wave abnormality no longer present Electronically Signed On 06-23-2023 7:51:43 CDT by Mahesh Jeter M.D. [id number]
[2023-06-23] VITALS (12 sets, daily range): BP systolic 96–120; BP diastolic 53–74; PULSE 87–110; RESP 14–20; TEMP 36.1–36.8; O2SAT 91–93
[2023-06-23] MEDS: dilTIAZem 5 mg/mL SDV 5 mL IVP (00:18)
[2023-06-23] MEDS: oxyCODONE-APAP 5-325 mg Tablet 1 TAB PO ×2 (04:36→11:50)
[2023-06-23 05:19] LABS: Basophils % 0.3 %; Eosinophils # 0.1 10^3/uL (0.0-0.8); Eosinophils % 1.1 %; Hematocrit 30.4 % (36-47); Lymphocytes # 0.5 10^3/uL (0.8-4.8); Lymphocytes % 6.6 %; Mean Corpuscular HGB Conc 33.2 g/dL (30-55); Mean Corpuscular Hemoglobin 25.4 pg (27-33); Mean Corpuscular Volume 76.4 fl (85-98); Mean Platelet Volume 9.3 fL (7.4-10.4); Monocytes # 1.4 10^3/uL (0.2-0.9); Monocytes % 17.4 %; Neutrophils # 5.85 10^3/uL (1.8-7.7); Neutrophils % 74.1 %; Nucleated Red Blood Cells % 0 %; Platelet Count 164 10^3/cmm (157-399); Red Blood Count 3.98 10^6/uL (3.85-5.65); Red Cell Distribution Width 16.3 % (12.1-15.1); White Blood Count 7.89 10^3/uL (3.29-11.43)
[2023-06-23 05:44] LABS: Alanine Aminotransferase < 5 U/L (0-33); Albumin Level 4.5 g/dL (3.5-5.2); Alkaline Phosphatase 52 U/L (35-105); Aspartate Amino Transferase 14 U/L (0-32); Blood Urea Nitrogen 31 mg/dL (8-23); Calcium 8.7 mg/dL (8.5-10.5); Carbon Dioxide 21 mmol/L (22-29); Chloride 94 mmol/L (98-107); Creatinine Clr Calc Pharmacy 45.1893; Globulin 2.4 g/dL (1.3-4.6); Glucose 104 mg/dL (65-115); Osmolality Calculated 277 mOsm/kg (285-295); Sodium 130 mmol/L (136-145); Total Bilirubin 0.4 mg/dL (0.15-1.2); Total Protein 6.9 g/dL (6.6-8.7)
--- NOTE | 2023-06-23 07:00 | XR_ITS ---
WS: [id number] KUB, portable supine AP view, 06/23/2023 Clinical Data: concern for ileus Comparison: KUB, 06/21/2023 Findings: No abnormal intraabdominal masses or calcifications are seen. There is no dilatated small bowel or ev idence of obstruction. There is Gastrografin contrast throughout the colon but there is progressive movement of the Gastrogr afin. There is air in the small bowel and the colon. Impression: Moderate generalized ileus with Gastrografin remaining in the colon.
[2023-06-23] MEDS: albumin 25 G/100 ML BAG 60 G IV ×3 (08:20→22:17)
[2023-06-23] MEDS: polyethylene glycol 3350 Pkt 17 gm PO (08:20)
[2023-06-23] MEDS: pantoprazole 40 mg SDV IVP ×2 (08:20→16:26)
[2023-06-23] MEDS: metoclopramide 5 mg/mL SDV 2 mL IVP ×3 (08:20→22:18)
[2023-06-23] MEDS: sodium chloride 1 gm Tablet PO ×2 (08:20→22:12)
[2023-06-23] MEDS: tamsulosin 0.4 mg Capsule 0.400000000000000022 MG PO (08:21)
[2023-06-23] MEDS: FUROsemide 20 mg Tablet PO (08:26)
[2023-06-23 14:34] LABS: C.Diff PCR (Lab) NEGATIVE (Negative)
--- NOTE | 2023-06-23 15:10 | P.PN_ITS ---
Subjective 2 Subjective: Patient was planned to be discharged yesterday, however this was eventually canceled as she was very weak, could not ambulate without feeling extremely fatigued and tired. Overnight she had heart rate go up to 150, sinus rhythm, complained of palpitations. She received Cardizem push which controlled her heart rate. Medications: Reviewed: Yes Vitals/I&O/Wt Last Vital Signs Temp 97.8 F 06/23/23 11:42 Pulse 96 06/23/23 11:42 Resp 20 H 06/23/23 11:50 BP 111/73 06/23/23 11:42 Pulse Ox 91 06/23/23 11:42 O2 Del Method Room Air 06/23/23 11:42 O2 Flow Rate 4 06/21/23 09:03 06/23/23 06/23/23 06/23/23 06:59 14:59 22:59 Intake Total 100 / 470 220 / 220 Balance 100 / -2130 220 / 220 Weight last 48 hrs Weight 59.421 kg Weight 59.421 kg Physical Exam 2 Narrative: General: No acute distress, AO x3 HEENT: PERRLA, pupils bilaterally equal and reactive, pallors not present Chest: Normal vesicular breath sounds, no added sounds, equal good air entry bilaterally CVS: S1-S2 regular, no murmurs, no tachycardia, no gallops, no rubs Abdomen: distended, BS+ Neuro: No focal deficits, no facial deformity, AO x3, power 5/5 in all limbs Urinary Catheter Management: Ugarte: Cath Placed During This Visit: yes, but has since been removed by the nurse Reason for Continuing Indwelling Catheter: Acute Urinary Retention or Obstruction Urinary Catheter Date of Insertion: 06/21/23 Urinary Catheter Time of Insertion: 15:00 Date Urinary Catheter Removed: 06/22/23 Time Urinary Catheter Discontinued: 13:00 Data 06/23/23 04:45 06/23/23 04:45 Micro: Microbiology 06/21/23 18:11 Urine Culture - Preliminary Urine Catheterized A&P Assessment and plan (1) BEVERLY (acute kidney injury): (2) Acute hyponatremia: (3) Suspected malignant neoplasm: (4) Generalized lymphadenopathy: Plan Severe constipation Will give her mag citrate and lactulose Keep her on clear liquid diet Patient is passing flatus Last bowel movement was 10 days ago Severe/critical low hyponatremia Admit to ICU Normal saline 100 mill per hour next BMP every 4 hours Seen regarding hypertonic send will be made after checking neck sodium levels Nephro consulted Clinically patient is hypovolemic hyponatremia Last proper meal was couple of days ago Sodium 123 this morning. Potassium 5.5 last night. We will repeat at this time. Recheck BMP. BEVERLY related to dehydration anticipating improvement with IV fluid hydration Liver cirrhosis with ascites Start ceftriaxone 2 g daily Abdominal pain No previous diagnosis of liver disease HIV or hepatitis Patient does not drink alcohol, does not smoke No significant anemia or thrombocytopenia Rule out lymphoma significant lymphadenopathy noted on CT abdomen pelvis Request LDH and uric acid Patient is full code, discussed with the patient and her at the bedside Clear liquid diet Added DVT prophylaxis as well B-cell symptoms Weight loss, nocturnal fever, diaphoresis, lymphadenopathy Patient will need diagnostic biopsy of her lymph node to rule out lymphoma which could happen on Tuesday Please stop DVT prophylaxis on Tuesday midnight Patient will need radiology consult Plan for today June 20, 2023. Sodium improving to 124 today. Continue normal saline at 75 cc an hour and p.o. salt supplementation. Appreciate nephrology recommendations. Cancel peritoneal lymph node biopsy today. Will instead complete malignancy evaluation by obtaining CT of the chest abdomen and pelvis with IV and oral contrast. Potentially patient may have additional lymph node involvement in the supraclavicular or infra axillary areas versus may have more easily accessible lymph nodes in the lung. Alternately patient reports a family history of lung cancer affecting both her mother and father, potentially may have lung cancer given also concomitant hyponatremia and possibility of SIADH. She does not yet have a chest x-ray or other lung imaging since October 2022. Will additionally obtain Ca1 25 tumor markers levels. Patient reports a past history of hysterectomy and removal of a single ovary due to infection from an IUD. She still has 1 ovary retained. Not very well-visualized on CT without contrast. Will obtain CT with contrast today. Possibly also paracentesis if enough fluid is encountered on CT abdomen. Reviewed CTA of the chest from October 2022 which had shown a large hiatal hernia for which patient had surgery in March 2023. No immediate perioperative complications per patient history. Incidentally adenopathy was also noted in the upper abdomen on the chest CT with enlarged aortocaval lymph nodes. Will additionally check HIV screen, hepatitis screen and syphilis screen to assess for lymphadenopathy. Patient denies any exposure to farm animals. She has a pet dog at home. No exposure to cats or other exotic pets. Noted cirrhotic contour of the liver she has a history of drinking alcohol excessively several years ago, currently does not drink at all. Check hepatitis C screen Plan for today June 21, 2023. CT of the chest abdomen and pelvis with contrast was completed yesterday. Study showed probably neoplastic mediastinal and epicardial lymphadenopathy no sign of pulmonary neoplasm. Additionally seen diffuse probably neoplastic lymphadenopathy throughout the retroperitoneum mesentery abraham hepatis pelvis and inguinal regions concerning for lymphoma versus metastases. Infiltrative soft tissue density noted involving the right lower quadrant mesentery finding in association with ascites raise suspicion for peritoneal carcinomatosis. There is limited evaluation of the colonic wall however questionable thickening of the ascending colonic wall and ill-definition of the proximal transverse colon with associated mesenteric soft tissue density was noted. Colonic neoplasm could not be excluded. General surgery consult was obtained given these findings to assess for colonoscopy. Patient's last colonoscopy dates back to September 2021 which was performed by Dr. Truong at the time. Study negative for any suspicious lesions, showed diverticulosis without diverticulitis. Will obtain records from recent surgery at [facility] in [place] to see if any concerning intra-abdominal findings were encountered during her laparoscopic hiatal hernia surgery. Patient states some biopsies were taken, however remembers these to be from an EGD not necessarily from any concerning lymph nodes. Additional concern for possible ovarian malignancy given elevated CA125 at 118.. Patient currently only has 1 ovary, ordered transvaginal ultrasound for better characterization of the remaining ovary which is not well-visualized on CT of the abdomen..Check bladder scan. reduce empric CTX dose from 2 g iv daily to 1 g iv daily for possible UTI given + LA on urine . Optimize pain control by using oxycodone APAP 08/04/2024 every 6 hours as needed. Additionally IV morphine ordered as needed.. June 30, 2023: Please see discharge summary. Patient eventually did not discharge. Plan for today June 23, 2023. Patient complaining of increasing abdominal distention. X-ray abdomen reviewed from this morning shows developing ileus. Make patient NPO. Place NG tube to low intermittent suction. Intermittently sinus tachycardia with heart rate going up to 154 especially with exertion. Start metoprolol 12.5 mg p.o. twice daily. Okay to continue meds with NG in place. She has had 3 episodes of diarrhea today. Check C. difficile. Pain is currently controlled. Overall patient appears to be uncomfortable relating to abdominal distention and tachycardia. Sodium improved to 130. P.o. salt tablets currently and twice daily. Attestations 2 Medical Necessity Statement*: Continued admission for ileus, NG tube placement today, add metoprolol. Coding Level of Care Code Acute Code for Chg Fwd Moderate MDM includes number and complexity of problems actively addressed during encounter, amount and/or complexity of data reviewed/ordered and described risk of complication, morbidity or mortality of management as documented Diagnoses BEVERLY (acute kidney injury) N17.9 Acute hyponatremia E87.1 Suspected malignant neoplasm R68.89 Generalized lymphadenopathy R59.1
--- NOTE | 2023-06-23 15:32 | XRR_ITS ---
PROCEDURE INFORMATION: Exam: XR Chest Exam date and time: 06/23/2023 3:18 PM Age: 77 years old Clinical indication: Other: Ng placement TECHNIQUE: Imaging protocol: Radiologic exam of the chest. Views: 1 view. COMPARISON: CT chest abdpel w/*[id number] 06/20/2023 4:11 PM FINDINGS: Tubes, catheters and devices: A nasogastric tube has been placed, with tip of the catheter within the upper left abdomen at the expected level of the mid stomach. The proximal side port within the distal aspect of the catheter is below the level of the diaphragm or proximal stomach level. Overlying monitor leads. Lungs: Small amount of basilar atelectasis. No consolidation. Pleural spaces: Possible trace effusion at the costophrenic angles, without significant effusion. No pneumothorax. Heart/Mediastinum: No significant cardiomegaly. Bones/joints: Old rib fractures on the left. Old fracture mid to distal right clavicle. Gastrointestinal tract: Mild increased gas with residual oral contrast within the visualized colon. XR/XR chest 1V portable [id number] IMPRESSION: NG tube appears in good position at the expected level of the mid stomach in the left upper abdomen.
--- NOTE | 2023-06-23 16:48 | P.PN_ITS ---
Subjective 2 Subjective: NGT placed Medications: Reviewed: Yes Vitals/I&O/Wt Last Vital Signs Temp 97.8 F 06/23/23 11:42 Pulse 96 06/23/23 11:42 Resp 20 H 06/23/23 11:50 BP 111/73 06/23/23 11:42 Pulse Ox 91 06/23/23 11:42 O2 Del Method Room Air 06/23/23 11:42 O2 Flow Rate 4 06/21/23 09:03 06/23/23 06/23/23 06/23/23 06:59 14:59 22:59 Intake Total 100 / 470 220 / 220 Balance 100 / -2130 220 / 220 Weight last 48 hrs Weight 59.421 kg Weight 59.421 kg Physical Exam 2 Narrative: awake , alert no distress no edema Urinary Catheter Management: Ugarte: Cath Placed During This Visit: yes, but has since been removed by the nurse Reason for Continuing Indwelling Catheter: Acute Urinary Retention or Obstruction Urinary Catheter Date of Insertion: 06/21/23 Urinary Catheter Time of Insertion: 15:00 Date Urinary Catheter Removed: 06/22/23 Time Urinary Catheter Discontinued: 13:00 Data 06/23/23 04:45 06/23/23 04:45 Micro: Microbiology 06/21/23 18:11 Urine Culture - Preliminary Urine Catheterized A&P Assessment and plan (1) BEVERLY (acute kidney injury): (2) Acute hyponatremia: Plan 1. Hyponatremia: Likely hypovolemic in the setting of poor p.o. intake. s/p IVF , nA 126-130 range - on salt tabs to 1 gm tid , continue fluid restriction , noted Low Na , and U osm pending , added lasix 2. BEVERLY: Likely prerenal, s/p normal saline, continue to monitor 3. Hyperkalemia, status post med management , improved 4. Extensive lymphadenopathy concerning for lymphoma vs mets - s/p LN biopsy 5. Liver cirrhosis and ascites. 6. ILLEUS -NGT placed will sign off , call with questions Patient evaluated using audiovisual cart. Time spent 20 minutes. Attestations 2 Medical Necessity Statement*: per [facility] Coding Level of Care Code Acute Code for Chg Fwd Diagnoses BEVERLY (acute kidney injury) N17.9 Acute hyponatremia E87.1
[2023-06-23] MEDS: cetylpyridinium Lozenge 1 EACH MUCOUS MEM (18:06)
--- NOTE | 2023-06-23 18:17 | PC.NURSE ---
NGT placed with 2 attempts. upon first attempt tube coiled in pts mouth. tube removed and new tube inserted. position verified via Xray.
[2023-06-23] MEDS: morphine 4 mg/mL SDV 1 mL 2 MG IVP (18:23)
[2023-06-23] MEDS: metoprolol tartrate 25 mg Tablet 12.5 MG PO (22:12)
[2023-06-24] VITALS (10 sets, daily range): BP systolic 114–139; BP diastolic 65–82; PULSE 96–109; RESP 16–18; TEMP 36.4–37.1; O2SAT 90–94
[2023-06-24] MEDS: morphine 4 mg/mL SDV 1 mL 2 MG IVP (01:02)
[2023-06-24 05:47] LABS: Basophils % 0.3 %; Eosinophils # 0.1 10^3/uL (0.0-0.8); Eosinophils % 0.9 %; Hematocrit 30.4 % (36-47); Lymphocytes # 0.4 10^3/uL (0.8-4.8); Lymphocytes % 5.7 %; Mean Corpuscular HGB Conc 32.2 g/dL (30-55); Mean Corpuscular Hemoglobin 25.3 pg (27-33); Mean Corpuscular Volume 78.6 fl (85-98); Mean Platelet Volume 9.3 fL (7.4-10.4); Monocytes # 1.4 10^3/uL (0.2-0.9); Monocytes % 18.2 %; Neutrophils % 74.2 %; Nucleated Red Blood Cells % 0 %; Platelet Count 155 10^3/cmm (157-399); Red Blood Count 3.87 10^6/uL (3.85-5.65); Red Cell Distribution Width 16.5 % (12.1-15.1); White Blood Count 7.68 10^3/uL (3.29-11.43)
[2023-06-24] MEDS: albumin 25 G/100 ML BAG 60 G IV ×2 (05:58→15:25)
[2023-06-24] MEDS: metoclopramide 5 mg/mL SDV 2 mL IVP ×2 (05:59→15:26)
[2023-06-24 06:08] LABS: Alanine Aminotransferase < 5 U/L (0-33); Albumin Level 4.6 g/dL (3.5-5.2); Alkaline Phosphatase 46 U/L (35-105); Anion Gap 18.4 (5-19); Aspartate Amino Transferase 10 U/L (0-32); Blood Urea Nitrogen 26 mg/dL (8-23); Calcium 9.2 mg/dL (8.5-10.5); Carbon Dioxide 21 mmol/L (22-29); Chloride 94 mmol/L (98-107); Creatinine Clr Calc Pharmacy 50.3238; Globulin 2.7 g/dL (1.3-4.6); Glucose 86 mg/dL (65-115); Osmolality Calculated 274 mOsm/kg (285-295); Potassium 3.4 mmol/L (3.5-5.1); Sodium 130 mmol/L (136-145); Total Bilirubin 0.5 mg/dL (0.15-1.2); Total Protein 7.3 g/dL (6.6-8.7)
--- NOTE | 2023-06-24 07:00 | XR_ITS ---
WS: [id number] KUB, AP portable supine, 06/24/2023 Clinical Data: follow up ileus Comparison: KUB, 06/23/2023 Findings: No abnormal intraabdominal masses or calcifications are seen. There is no dilatated small bowel or ev idence of obstruction. The Gastrografin remains in the colon. There is still air in the small bowel and the colon. There is a nasogastric tube ending in the body of the stomach. Monitor leads are on the abdominal wall. Impression: No change in generalized ileus and retention of Gastrografin in the colon.
[2023-06-24] MEDS: metoprolol tartrate 25 mg Tablet 12.5 MG PO ×2 (09:13→20:13)
[2023-06-24] MEDS: sodium chloride 1 gm Tablet PO ×2 (09:13→17:29)
[2023-06-24] MEDS: pantoprazole 40 mg SDV IVP ×2 (09:13→17:28)
[2023-06-24] MEDS: tamsulosin 0.4 mg Capsule 0.400000000000000022 MG PO (09:13)
[2023-06-24] MEDS: polyethylene glycol 3350 Pkt 17 gm PO (09:14)
[2023-06-24] MEDS: FUROsemide 20 mg Tablet PO ×2 (09:14→15:26)
[2023-06-24] MEDS: oxyCODONE-APAP 5-325 mg Tablet 1 TAB PO ×2 (09:20→17:28)
--- NOTE | 2023-06-24 12:13 | P.PN_ITS ---
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 Patient over the last 72 to 96 hours has developed clinical picture consistent of ileus with lack of bowel movements with still passing gas and patient has developed some abdominal distention which is uncomfortable per her report. Vitals/I&O/Wt Last Vital Signs Temp 98.1 F 06/24/23 12:00 Pulse 108 H 06/24/23 12:00 Resp 18 06/24/23 12:00 BP 139/81 06/24/23 12:00 Pulse Ox 93 06/24/23 12:00 O2 Del Method Room Air 06/24/23 12:00 O2 Flow Rate 4 06/21/23 09:03 06/23/23 06/24/23 06/24/23 22:59 06:59 14:59 Intake Total 340 / 560 100 / 660 100 / 100 Output Total 200 / 200 Balance 340 / 560 100 / 660 -100 / -100 Weight last 48 hrs Weight 128 lb Weight 131 lb Physical Exam 2 GI: OTHER: Abdomen is soft, minimally tender to palpation, appears to be distended. There is good bowel sounds. Urinary Catheter Management: Ugarte: Cath Placed During This Visit: yes, but has since been removed by the nurse Reason for Continuing Indwelling Catheter: Acute Urinary Retention or Obstruction Urinary Catheter Date of Insertion: 06/21/23 Urinary Catheter Time of Insertion: 15:00 Date Urinary Catheter Removed: 06/22/23 Time Urinary Catheter Discontinued: 13:00 Data 06/24/23 05:30 06/24/23 05:30 Micro: Microbiology 06/21/23 18:11 Urine Culture - Final Urine Catheterized A&P Assessment and plan (1) Peritoneal carcinomatosis: Plan After complete history physical examination and review of all available clinical data the following is my assessment. 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 An NG tube was attempted to be inserted yesterday but patient did not tolerate the tube after insertion and initially remove it. At this point I think we should continue with conservative management of malignant ileus in the hopes of prompt resolution. Indicates of lack of progression over the next 48 hours I will recommend to proceed with a CT scan of the abdomen pelvis with p.o. and IV contrast to evaluate for any possible areas of transition of progression of disease and indicates of lack of progression my recommendation will be to transfer to higher level of care for colorectal surgery evaluation for possible cytoreductive surgery and palliative resection versus palliative ostomy creation. The following are my recommendations for the management of this patient ileus. ? Please obtain daily electrolytes including potassium magnesium and phosphorus and replace to a potassium level of 4 phosphorus level of 3 and magnesium level of 2 to ensure optimal electrolyte balance for GI function. ? Patient should be ambulated daily, I discussed this with the patient, in the case of an additional assistance patient can get the help of physical therapy. ? If patient complains of significant abdominal pain can consider the use of octreotide to limit the secretion of the GI tract. ? If there is lack of progression in the next 24 to 48 hours please obtain a CT scan of the abdomen pelvis with p.o. and IV contrast. ? All other management per primary team. ? Unfortunately, the finding of malignant ileus is usually seen in late states of disease, which may indicate that there might very little chance for meaningful therapy for this patient at this point. Attestations 2 Medical Necessity Statement*: Per medical team Coding Level of Care Code Acute Code for Chg Fwd Diagnoses Peritoneal carcinomatosis C78.6
--- NOTE | 2023-06-24 15:05 | PC.SOCIAL ---
IMM Update pg 2 of IMM updated and reviewed w/ patient. Copy provided and copy dated, initialed and placed in chart.
--- NOTE | 2023-06-24 16:39 | P.PN_ITS ---
Subjective 2 Subjective: Continues to complain of abdominal discomfort. NG tube that was placed last evening needed to be taken out as patient did not tolerate it. Gastric output was about 200 cc. X-ray this morning continues to show generalized ileus and retention of Gastrografin in the colon. Medications: Reviewed: Yes Vitals/I&O/Wt Last Vital Signs Temp 98.3 F 06/24/23 16:00 Pulse 97 06/24/23 16:00 Resp 17 06/24/23 16:00 BP 135/65 06/24/23 16:00 Pulse Ox 90 06/24/23 16:00 O2 Del Method Room Air 06/24/23 16:00 O2 Flow Rate 4 06/21/23 09:03 06/24/23 06/24/23 06/24/23 06:59 14:59 22:59 Intake Total 100 / 660 100 / 100 Output Total 200 / 200 Balance 100 / 660 -100 / -100 Weight last 48 hrs Weight 58.06 kg Weight 59.421 kg Physical Exam 2 Narrative: General: No acute distress, AO x3 HEENT: PERRLA, pupils bilaterally equal and reactive, pallors not present Chest: Normal vesicular breath sounds, no added sounds, equal good air entry bilaterally CVS: S1-S2 regular, no murmurs, no tachycardia, no gallops, no rubs Abdomen: distebded, BS+, difficulty passing flatus Neuro: No focal deficits, no facial deformity, AO x3, power 5/5 in all limbs Urinary Catheter Management: Ugarte: Cath Placed During This Visit: yes, but has since been removed by the nurse Reason for Continuing Indwelling Catheter: Acute Urinary Retention or Obstruction Urinary Catheter Date of Insertion: 06/21/23 Urinary Catheter Time of Insertion: 15:00 Date Urinary Catheter Removed: 06/22/23 Time Urinary Catheter Discontinued: 13:00 Data 06/24/23 05:30 06/24/23 05:30 Micro: Microbiology 06/21/23 18:11 Urine Culture - Final Urine Catheterized A&P Assessment and plan (1) BEVERLY (acute kidney injury): (2) Acute hyponatremia: (3) Suspected malignant neoplasm: (4) Generalized lymphadenopathy: Plan Severe constipation Will give her mag citrate and lactulose Keep her on clear liquid diet Patient is passing flatus Last bowel movement was 10 days ago Severe/critical low hyponatremia Admit to ICU Normal saline 100 mill per hour next BMP every 4 hours Seen regarding hypertonic send will be made after checking neck sodium levels Nephro consulted Clinically patient is hypovolemic hyponatremia Last proper meal was couple of days ago Sodium 123 this morning. Potassium 5.5 last night. We will repeat at this time. Recheck BMP. BEVERLY related to dehydration anticipating improvement with IV fluid hydration Liver cirrhosis with ascites Start ceftriaxone 2 g daily Abdominal pain No previous diagnosis of liver disease HIV or hepatitis Patient does not drink alcohol, does not smoke No significant anemia or thrombocytopenia Rule out lymphoma significant lymphadenopathy noted on CT abdomen pelvis Request LDH and uric acid Patient is full code, discussed with the patient and her at the bedside Clear liquid diet Added DVT prophylaxis as well B-cell symptoms Weight loss, nocturnal fever, diaphoresis, lymphadenopathy Patient will need diagnostic biopsy of her lymph node to rule out lymphoma which could happen on Tuesday Please stop DVT prophylaxis on Tuesday midnight Patient will need radiology consult Plan for today June 20, 2023. Sodium improving to 124 today. Continue normal saline at 75 cc an hour and p.o. salt supplementation. Appreciate nephrology recommendations. Cancel peritoneal lymph node biopsy today. Will instead complete malignancy evaluation by obtaining CT of the chest abdomen and pelvis with IV and oral contrast. Potentially patient may have additional lymph node involvement in the supraclavicular or infra axillary areas versus may have more easily accessible lymph nodes in the lung. Alternately patient reports a family history of lung cancer affecting both her mother and father, potentially may have lung cancer given also concomitant hyponatremia and possibility of SIADH. She does not yet have a chest x-ray or other lung imaging since October 2022. Will additionally obtain Ca1 25 tumor markers levels. Patient reports a past history of hysterectomy and removal of a single ovary due to infection from an IUD. She still has 1 ovary retained. Not very well-visualized on CT without contrast. Will obtain CT with contrast today. Possibly also paracentesis if enough fluid is encountered on CT abdomen. Reviewed CTA of the chest from October 2022 which had shown a large hiatal hernia for which patient had surgery in March 2023. No immediate perioperative complications per patient history. Incidentally adenopathy was also noted in the upper abdomen on the chest CT with enlarged aortocaval lymph nodes. Will additionally check HIV screen, hepatitis screen and syphilis screen to assess for lymphadenopathy. Patient denies any exposure to farm animals. She has a pet dog at home. No exposure to cats or other exotic pets. Noted cirrhotic contour of the liver she has a history of drinking alcohol excessively several years ago, currently does not drink at all. Check hepatitis C screen Plan for today June 21, 2023. CT of the chest abdomen and pelvis with contrast was completed yesterday. Study showed probably neoplastic mediastinal and epicardial lymphadenopathy no sign of pulmonary neoplasm. Additionally seen diffuse probably neoplastic lymphadenopathy throughout the retroperitoneum mesentery abraham hepatis pelvis and inguinal regions concerning for lymphoma versus metastases. Infiltrative soft tissue density noted involving the right lower quadrant mesentery finding in association with ascites raise suspicion for peritoneal carcinomatosis. There is limited evaluation of the colonic wall however questionable thickening of the ascending colonic wall and ill-definition of the proximal transverse colon with associated mesenteric soft tissue density was noted. Colonic neoplasm could not be excluded. General surgery consult was obtained given these findings to assess for colonoscopy. Patient's last colonoscopy dates back to September 2021 which was performed by Dr. Truong at the time. Study negative for any suspicious lesions, showed diverticulosis without diverticulitis. Will obtain records from recent surgery at [facility] in [place] to see if any concerning intra-abdominal findings were encountered during her laparoscopic hiatal hernia surgery. Patient states some biopsies were taken, however remembers these to be from an EGD not necessarily from any concerning lymph nodes. Additional concern for possible ovarian malignancy given elevated CA125 at 118.. Patient currently only has 1 ovary, ordered transvaginal ultrasound for better characterization of the remaining ovary which is not well-visualized on CT of the abdomen..Check bladder scan. reduce empric CTX dose from 2 g iv daily to 1 g iv daily for possible UTI given + LA on urine . Optimize pain control by using oxycodone APAP 08/04/2024 every 6 hours as needed. Additionally IV morphine ordered as needed.. June 30, 2023: Please see discharge summary. Patient eventually did not discharge. Plan for today June 23, 2023. Patient complaining of increasing abdominal distention. X-ray abdomen reviewed from this morning shows developing ileus. Make patient NPO. Place NG tube to low intermittent suction. Intermittently sinus tachycardia with heart rate going up to 154 especially with exertion. Start metoprolol 12.5 mg p.o. twice daily. Okay to continue meds with NG in place. She has had 3 episodes of diarrhea today. Check C. difficile. Pain is currently controlled. Overall patient appears to be uncomfortable relating to abdominal distention and tachycardia. Sodium improved to 130. P.o. salt tablets currently and twice daily. Plan for today June 24, 2023. NG tube was not tolerated therefore removed this morning. X-ray continues to show ileus. General surgery was consulted, appreciate recommendations. Potassium 3.4 this morning, supplemented with 40 mEq KCl IV. Sinus tachycardia better today with addition of metoprolol. C. difficile PCR returned negative. Pathology remains pending. Continue NPO. Conservative management. Start IV fluids D5 normal saline to maintain hydration. Plan for CT of the abdomen with contrast if failure to improve in the next 24 hours. Attestations 2 Medical Necessity Statement*: continued admission for ileus Coding Level of Care Code Acute Code for Chg Fwd Diagnoses BEVERLY (acute kidney injury) N17.9 Acute hyponatremia E87.1 Suspected malignant neoplasm R68.89 Generalized lymphadenopathy R59.1
[2023-06-24] MEDS: lidocaine 1% 5 ML in potassium chloride premix 100 ML 26.25 ML IV (17:28)
[2023-06-24] MEDS: dextrose 5%-sod chloride 0.9% 1,000 ML 50 ML IV (17:29)
[2023-06-24 17:41] LABS: Magnesium 2.1 mg/dL (1.7-2.3)
[2023-06-25] VITALS (13 sets, daily range): BP systolic 122–149; BP diastolic 74–83; PULSE 94–118; RESP 16–20; TEMP 36.3–36.7; O2SAT 90–95
[2023-06-25] MEDS: albumin 25 G/100 ML BAG 60 G IV ×4 (00:32→22:16)
[2023-06-25] MEDS: metoclopramide 5 mg/mL SDV 2 mL IVP ×4 (00:33→22:17)
[2023-06-25] MEDS: morphine 4 mg/mL SDV 1 mL 2 MG IVP ×2 (02:40→08:44)
[2023-06-25 05:59] LABS: Basophils % 0.3 %; Eosinophils % 0.4 %; Hematocrit 31.1 % (36-47); Lymphocytes # 0.4 10^3/uL (0.8-4.8); Lymphocytes % 5.5 %; Mean Corpuscular HGB Conc 32.2 g/dL (30-55); Mean Corpuscular Hemoglobin 25.1 pg (27-33); Mean Corpuscular Volume 78.1 fl (85-98); Mean Platelet Volume 9.6 fL (7.4-10.4); Monocytes # 1.5 10^3/uL (0.2-0.9); Neutrophils # 5.29 10^3/uL (1.8-7.7); Neutrophils % 72.8 %; Nucleated Red Blood Cells % 0 %; Platelet Count 182 10^3/cmm (157-399); Red Blood Count 3.98 10^6/uL (3.85-5.65); Red Cell Distribution Width 16.6 % (12.1-15.1); White Blood Count 7.26 10^3/uL (3.29-11.43)
[2023-06-25 06:21] LABS: Alanine Aminotransferase < 5 U/L (0-33); Albumin Level 4.8 g/dL (3.5-5.2); Alkaline Phosphatase 46 U/L (35-105); Anion Gap 17.8 (5-19); Aspartate Amino Transferase 11 U/L (0-32); Blood Urea Nitrogen 28 mg/dL (8-23); Calcium 9.4 mg/dL (8.5-10.5); Carbon Dioxide 23 mmol/L (22-29); Chloride 99 mmol/L (98-107); Globulin 2.5 g/dL (1.3-4.6); Glucose 98 mg/dL (65-115); Magnesium 1.9 mg/dL (1.7-2.3); Osmolality Calculated 287 mOsm/kg (285-295); Phosphorus 2.4 mg/dL (2.5-4.5); Potassium 3.8 mmol/L (3.5-5.1); Sodium 136 mmol/L (136-145); Total Bilirubin 0.6 mg/dL (0.15-1.2); Total Protein 7.3 g/dL (6.6-8.7)
[2023-06-25] MEDS: oxyCODONE-APAP 5-325 mg Tablet 1 TAB PO ×3 (06:24→22:01)
[2023-06-25] MEDS: pantoprazole 40 mg SDV IVP ×2 (08:44→17:28)
[2023-06-25] MEDS: sodium chloride 1 gm Tablet PO (08:44)
[2023-06-25] MEDS: metoprolol tartrate 25 mg Tablet 12.5 MG PO (08:44)
[2023-06-25] MEDS: tamsulosin 0.4 mg Capsule 0.400000000000000022 MG PO (08:44)
--- NOTE | 2023-06-25 10:54 | P.PN_ITS ---
Subjective 2 Subjective: Patient has been stable over the last 24 hours, after ambulation she was able to have a bowel movement. Still complains of abdominal distention and lower back pain. Vitals/I&O/Wt Last Vital Signs Temp 97.7 F 06/25/23 07:41 Pulse 107 H 06/25/23 07:41 Resp 16 06/25/23 08:44 BP 149/79 06/25/23 07:41 Pulse Ox 90 06/25/23 07:41 O2 Del Method Room Air 06/25/23 07:41 O2 Flow Rate 4 06/21/23 09:03 06/24/23 06/25/23 06/25/23 22:59 06:59 14:59 Intake Total 445 / 545 452.5 / 997.5 100 / 100 Balance 445 / 345 452.5 / 797.5 100 / 100 Weight last 48 hrs Weight 124 lb 8 oz Weight 128 lb Physical Exam 2 GI: OTHER: Abdomen is soft but distended, minimally tender, bowel sounds are present. Urinary Catheter Management: Ugarte: Cath Placed During This Visit: yes, but has since been removed by the nurse Reason for Continuing Indwelling Catheter: Acute Urinary Retention or Obstruction Urinary Catheter Date of Insertion: 06/21/23 Urinary Catheter Time of Insertion: 15:00 Date Urinary Catheter Removed: 06/22/23 Time Urinary Catheter Discontinued: 13:00 Data 06/25/23 05:28 06/25/23 05:28 Micro: Microbiology 06/21/23 18:11 Urine Culture - Final Urine Catheterized A&P Assessment and plan (1) Peritoneal carcinomatosis: Plan Patient is a stable, malignant ileus appears to be improving as evidenced by patient passing gas and having a bowel movement, I recommend to continue conservative management with mobilization and ambulation, correction of electrolyte imbalances and supportive care. Explained to the patient that majority of her symptoms at this point unfortunately are related to progression of disease, she shows understanding. Will continue to work towards ambulating more. All other management per primary team Attestations 2 Medical Necessity Statement*: Per primary team Coding Level of Care Code Acute Code for Chg Fwd Diagnoses Peritoneal carcinomatosis C78.6
[2023-06-25] MEDS: dextrose 5%-sod chloride 0.9% 1,000 ML 50 ML IV (15:17)
--- NOTE | 2023-06-25 15:47 | P.PN_ITS ---
Subjective 2 Subjective: Patient had 2-3 episodes of bowel movements yesterday. No formed stools, reports mostly passage of mucus and semisolid contents. No bleeding. Abdomen softer on examination today. Patient noted to be ambulating in the hallway with assistance from . Using walker. Heart rate is better controlled. Sodium normal at 136. Medications: Reviewed: Yes Vitals/I&O/Wt Last Vital Signs Temp 97.4 F L 06/25/23 11:36 Pulse 94 06/25/23 11:36 Resp 17 06/25/23 15:18 BP 122/74 06/25/23 11:36 Pulse Ox 90 06/25/23 11:36 O2 Del Method Room Air 06/25/23 11:36 O2 Flow Rate 4 06/21/23 09:03 06/25/23 06/25/23 06/25/23 06:59 14:59 22:59 Intake Total 452.5 / 997.5 100 / 100 124.166 / 224.166 Balance 452.5 / 797.5 100 / 100 124.166 / 224.166 Weight last 48 hrs Weight 56.472 kg Weight 58.06 kg Physical Exam 2 Narrative: General: No acute distress, AO x3 HEENT: PERRLA, pupils bilaterally equal and reactive, pallors not present Chest: Normal vesicular breath sounds, no added sounds, equal good air entry bilaterally CVS: S1-S2 regular, no murmurs, no tachycardia, no gallops, no rubs Abdomen: Soft, less distended than before. BS + Neuro: No focal deficits, no facial deformity, AO x3, power 5/5 in all limbs Urinary Catheter Management: Ugarte: Cath Placed During This Visit: yes, but has since been removed by the nurse Reason for Continuing Indwelling Catheter: Acute Urinary Retention or Obstruction Urinary Catheter Date of Insertion: 06/21/23 Urinary Catheter Time of Insertion: 15:00 Date Urinary Catheter Removed: 06/22/23 Time Urinary Catheter Discontinued: 13:00 Data 06/25/23 05:28 06/25/23 05:28 Micro: Microbiology 06/21/23 18:11 Urine Culture - Final Urine Catheterized A&P Assessment and plan (1) BEVERLY (acute kidney injury): (2) Acute hyponatremia: (3) Suspected malignant neoplasm: (4) Generalized lymphadenopathy: Plan Severe constipation Will give her mag citrate and lactulose Keep her on clear liquid diet Patient is passing flatus Last bowel movement was 10 days ago Severe/critical low hyponatremia Admit to ICU Normal saline 100 mill per hour next BMP every 4 hours Seen regarding hypertonic send will be made after checking neck sodium levels Nephro consulted Clinically patient is hypovolemic hyponatremia Last proper meal was couple of days ago Sodium 123 this morning. Potassium 5.5 last night. We will repeat at this time. Recheck BMP. BEVERLY related to dehydration anticipating improvement with IV fluid hydration Liver cirrhosis with ascites Start ceftriaxone 2 g daily Abdominal pain No previous diagnosis of liver disease HIV or hepatitis Patient does not drink alcohol, does not smoke No significant anemia or thrombocytopenia Rule out lymphoma significant lymphadenopathy noted on CT abdomen pelvis Request LDH and uric acid Patient is full code, discussed with the patient and her at the bedside Clear liquid diet Added DVT prophylaxis as well B-cell symptoms Weight loss, nocturnal fever, diaphoresis, lymphadenopathy Patient will need diagnostic biopsy of her lymph node to rule out lymphoma which could happen on Tuesday Please stop DVT prophylaxis on Tuesday midnight Patient will need radiology consult Plan for today June 20, 2023. Sodium improving to 124 today. Continue normal saline at 75 cc an hour and p.o. salt supplementation. Appreciate nephrology recommendations. Cancel peritoneal lymph node biopsy today. Will instead complete malignancy evaluation by obtaining CT of the chest abdomen and pelvis with IV and oral contrast. Potentially patient may have additional lymph node involvement in the supraclavicular or infra axillary areas versus may have more easily accessible lymph nodes in the lung. Alternately patient reports a family history of lung cancer affecting both her mother and father, potentially may have lung cancer given also concomitant hyponatremia and possibility of SIADH. She does not yet have a chest x-ray or other lung imaging since October 2022. Will additionally obtain Ca1 25 tumor markers levels. Patient reports a past history of hysterectomy and removal of a single ovary due to infection from an IUD. She still has 1 ovary retained. Not very well-visualized on CT without contrast. Will obtain CT with contrast today. Possibly also paracentesis if enough fluid is encountered on CT abdomen. Reviewed CTA of the chest from October 2022 which had shown a large hiatal hernia for which patient had surgery in March 2023. No immediate perioperative complications per patient history. Incidentally adenopathy was also noted in the upper abdomen on the chest CT with enlarged aortocaval lymph nodes. Will additionally check HIV screen, hepatitis screen and syphilis screen to assess for lymphadenopathy. Patient denies any exposure to farm animals. She has a pet dog at home. No exposure to cats or other exotic pets. Noted cirrhotic contour of the liver she has a history of drinking alcohol excessively several years ago, currently does not drink at all. Check hepatitis C screen Plan for today June 21, 2023. CT of the chest abdomen and pelvis with contrast was completed yesterday. Study showed probably neoplastic mediastinal and epicardial lymphadenopathy no sign of pulmonary neoplasm. Additionally seen diffuse probably neoplastic lymphadenopathy throughout the retroperitoneum mesentery abraham hepatis pelvis and inguinal regions concerning for lymphoma versus metastases. Infiltrative soft tissue density noted involving the right lower quadrant mesentery finding in association with ascites raise suspicion for peritoneal carcinomatosis. There is limited evaluation of the colonic wall however questionable thickening of the ascending colonic wall and ill-definition of the proximal transverse colon with associated mesenteric soft tissue density was noted. Colonic neoplasm could not be excluded. General surgery consult was obtained given these findings to assess for colonoscopy. Patient's last colonoscopy dates back to September 2021 which was performed by Dr. Truong at the time. Study negative for any suspicious lesions, showed diverticulosis without diverticulitis. Will obtain records from recent surgery at [facility] in [place] to see if any concerning intra-abdominal findings were encountered during her laparoscopic hiatal hernia surgery. Patient states some biopsies were taken, however remembers these to be from an EGD not necessarily from any concerning lymph nodes. Additional concern for possible ovarian malignancy given elevated CA125 at 118.. Patient currently only has 1 ovary, ordered transvaginal ultrasound for better characterization of the remaining ovary which is not well-visualized on CT of the abdomen..Check bladder scan. reduce empric CTX dose from 2 g iv daily to 1 g iv daily for possible UTI given + LA on urine . Optimize pain control by using oxycodone APAP 08/04/2024 every 6 hours as needed. Additionally IV morphine ordered as needed.. June 30, 2023: Please see discharge summary. Patient eventually did not discharge. Plan for today June 23, 2023. Patient complaining of increasing abdominal distention. X-ray abdomen reviewed from this morning shows developing ileus. Make patient NPO. Place NG tube to low intermittent suction. Intermittently sinus tachycardia with heart rate going up to 154 especially with exertion. Start metoprolol 12.5 mg p.o. twice daily. Okay to continue meds with NG in place. She has had 3 episodes of diarrhea today. Check C. difficile. Pain is currently controlled. Overall patient appears to be uncomfortable relating to abdominal distention and tachycardia. Sodium improved to 130. P.o. salt tablets currently and twice daily. Plan for today June 24, 2023. NG tube was not tolerated therefore removed this morning. X-ray continues to show ileus. General surgery was consulted, appreciate recommendations. Potassium 3.4 this morning, supplemented with 40 mEq KCl IV. Sinus tachycardia better today with addition of metoprolol. C. difficile PCR returned negative. Pathology remains pending. Continue NPO. Conservative management. Start IV fluids D5 normal saline to maintain hydration. Plan for CT of the abdomen with contrast if failure to improve in the next 24 hours. Plan for today June 25, 2023. Patient had bowel movements yesterday. She has bowel sounds today. start clear liquid diet. Her abdomen appears to be less distended and softer today. States that she had inadequate pain control with her back pain yesterday. Add toradol 15mg IVP every 8 hrs prn. increase metoprolol to 25 mg BID, HR ranging 96-108 currently. Awaiting pathology results. Add PT, patient deconditioned as a result of her illness. Attestations 2 Medical Necessity Statement*: ileus appears to be improving, trial of clear liquid dite today, assess for tolerability Coding Level of Care Code Acute Code for Chg Fwd Diagnoses BEVERLY (acute kidney injury) N17.9 Acute hyponatremia E87.1 Suspected malignant neoplasm R68.89 Generalized lymphadenopathy R59.1
--- NOTE | 2023-06-25 15:52 | XRR_ITS ---
PROCEDURE INFORMATION: Exam: XR Abdomen Exam date and time: 06/25/2023 3:33 PM Age: 77 years old Clinical indication: Generalized; Patient HX: Abdominal pain/distention; Ileus; Follow up gastro trial TECHNIQUE: Imaging protocol: Radiologic exam of the abdomen. Views: Frontal supine view of the abdomen. 1 View. COMPARISON: CR XR abdomen 1V* [id number] 06/24/2023 7:15 AM FINDINGS: Gastrointestinal tract: No evidence for bowel obstruction or perforation. Oral contrast in multiple areas of the colon from the cecum to the distal sigmoid colon. The amount in the sigmoid colon has mildly decreased, remainder of the contrast is overall stable. Intraperitoneal space: No free intraperitoneal air. Organs: No organomegaly. Bones/joints: Bones are diffusely osteopenic. Degenerative changes in the spine, sacroiliac joints, and hips. XR/XR abdomen 1V* [id number] IMPRESSION: 1. No evidence for bowel obstruction or perforation. 2. Oral contrast in multiple areas of the colon from the cecum to the distal sigmoid colon. The amount in the sigmoid colon has mildly decreased, remainder of the contrast is overall stable. 3. Incidental/nonacute findings are listed in the report.
[2023-06-25] MEDS: metoprolol tartrate 25 mg Tablet PO (22:00)
[2023-06-26] VITALS (10 sets, daily range): BP systolic 106–176; BP diastolic 65–95; PULSE 92–115; RESP 16–18; TEMP 36.3–37.1; O2SAT 91–95
[2023-06-26 04:09] LABS: Alanine Aminotransferase < 5 U/L (0-33); Alkaline Phosphatase 43 U/L (35-105); Anion Gap 17.7 (5-19); Aspartate Amino Transferase 13 U/L (0-32); Blood Urea Nitrogen 31 mg/dL (8-23); Calcium 9.6 mg/dL (8.5-10.5); Carbon Dioxide 22 mmol/L (22-29); Chloride 100 mmol/L (98-107); Creatinine Clr Calc Pharmacy 49.7239; Globulin 2.5 g/dL (1.3-4.6); Glucose 101 mg/dL (65-115); Osmolality Calculated 289 mOsm/kg (285-295); Potassium 3.7 mmol/L (3.5-5.1); Sodium 136 mmol/L (136-145); Total Bilirubin 0.6 mg/dL (0.15-1.2); Total Protein 7.5 g/dL (6.6-8.7)
[2023-06-26] MEDS: albumin 25 G/100 ML BAG 60 G IV ×3 (06:32→23:15)
[2023-06-26] MEDS: metoclopramide 5 mg/mL SDV 2 mL IVP ×3 (06:33→23:15)
[2023-06-26] MEDS: oxyCODONE-APAP 5-325 mg Tablet 1 TAB PO (06:50)
[2023-06-26] MEDS: pantoprazole 40 mg SDV IVP (08:22)
[2023-06-26] MEDS: polyethylene glycol 3350 Pkt 17 gm PO (08:22)
[2023-06-26] MEDS: metoprolol tartrate 25 mg Tablet PO ×2 (08:22→20:13)
[2023-06-26] MEDS: tamsulosin 0.4 mg Capsule 0.400000000000000022 MG PO (08:22)
[2023-06-26] MEDS: dextrose 5%-sod chloride 0.9% 1,000 ML 50 ML IV (09:20)
--- NOTE | 2023-06-26 13:57 | P.PN_ITS ---
Subjective 2 Subjective: Abdomen appears to be less distended, softer today. Tolerated trial of clear liquid diet today, however this morning does not have much of an appetite. Pain is better. Complaining of being very weak and lethargic. she is passing much more gas today. Assessed by physical therapy yesterday. Ambulating with assistance of a walker, walking in the hallway.. Able to manage steps. Medications: Reviewed: Yes Vitals/I&O/Wt Last Vital Signs Temp 97.4 F L 06/26/23 12:00 Pulse 99 06/26/23 12:00 Resp 16 06/26/23 12:00 BP 154/89 06/26/23 12:00 Pulse Ox 91 06/26/23 12:00 O2 Del Method Room Air 06/26/23 07:29 O2 Flow Rate 4 06/21/23 09:03 06/25/23 06/26/23 06/26/23 22:59 06:59 14:59 Intake Total 344.166 / 444.166 100 / 005.929 8397.333 / 1373.333 Balance 344.166 / 444.166 100 / 203.820 3553.333 / 1373.333 Weight last 48 hrs Weight 57.238 kg Weight 56.472 kg Physical Exam 2 Narrative: General: No acute distress, AO x3 HEENT: PERRLA, pupils bilaterally equal and reactive, pallors not present Chest: Normal vesicular breath sounds, no added sounds, equal good air entry bilaterally CVS: S1-S2 regular, no murmurs, no tachycardia, no gallops, no rubs Abdomen: Soft, less distended than before. BS + Neuro: No focal deficits, no facial deformity, AO x3, power 5/5 in all limbs Urinary Catheter Management: Ugarte: Cath Placed During This Visit: yes, but has since been removed by the nurse Reason for Continuing Indwelling Catheter: Acute Urinary Retention or Obstruction Urinary Catheter Date of Insertion: 06/21/23 Urinary Catheter Time of Insertion: 15:00 Date Urinary Catheter Removed: 06/22/23 Time Urinary Catheter Discontinued: 13:00 Data 06/25/23 05:28 06/26/23 03:29 A&P Assessment and plan (1) BEVERLY (acute kidney injury): (2) Acute hyponatremia: (3) Suspected malignant neoplasm: (4) Generalized lymphadenopathy: Plan Severe constipation Will give her mag citrate and lactulose Keep her on clear liquid diet Patient is passing flatus Last bowel movement was 10 days ago Severe/critical low hyponatremia Admit to ICU Normal saline 100 mill per hour next BMP every 4 hours Seen regarding hypertonic send will be made after checking neck sodium levels Nephro consulted Clinically patient is hypovolemic hyponatremia Last proper meal was couple of days ago Sodium 123 this morning. Potassium 5.5 last night. We will repeat at this time. Recheck BMP. BEVERLY related to dehydration anticipating improvement with IV fluid hydration Liver cirrhosis with ascites Start ceftriaxone 2 g daily Abdominal pain No previous diagnosis of liver disease HIV or hepatitis Patient does not drink alcohol, does not smoke No significant anemia or thrombocytopenia Rule out lymphoma significant lymphadenopathy noted on CT abdomen pelvis Request LDH and uric acid Patient is full code, discussed with the patient and her at the bedside Clear liquid diet Added DVT prophylaxis as well B-cell symptoms Weight loss, nocturnal fever, diaphoresis, lymphadenopathy Patient will need diagnostic biopsy of her lymph node to rule out lymphoma which could happen on Tuesday Please stop DVT prophylaxis on Tuesday midnight Patient will need radiology consult Plan for today June 20, 2023. Sodium improving to 124 today. Continue normal saline at 75 cc an hour and p.o. salt supplementation. Appreciate nephrology recommendations. Cancel peritoneal lymph node biopsy today. Will instead complete malignancy evaluation by obtaining CT of the chest abdomen and pelvis with IV and oral contrast. Potentially patient may have additional lymph node involvement in the supraclavicular or infra axillary areas versus may have more easily accessible lymph nodes in the lung. Alternately patient reports a family history of lung cancer affecting both her mother and father, potentially may have lung cancer given also concomitant hyponatremia and possibility of SIADH. She does not yet have a chest x-ray or other lung imaging since October 2022. Will additionally obtain Ca1 25 tumor markers levels. Patient reports a past history of hysterectomy and removal of a single ovary due to infection from an IUD. She still has 1 ovary retained. Not very well-visualized on CT without contrast. Will obtain CT with contrast today. Possibly also paracentesis if enough fluid is encountered on CT abdomen. Reviewed CTA of the chest from October 2022 which had shown a large hiatal hernia for which patient had surgery in March 2023. No immediate perioperative complications per patient history. Incidentally adenopathy was also noted in the upper abdomen on the chest CT with enlarged aortocaval lymph nodes. Will additionally check HIV screen, hepatitis screen and syphilis screen to assess for lymphadenopathy. Patient denies any exposure to farm animals. She has a pet dog at home. No exposure to cats or other exotic pets. Noted cirrhotic contour of the liver she has a history of drinking alcohol excessively several years ago, currently does not drink at all. Check hepatitis C screen Plan for today June 21, 2023. CT of the chest abdomen and pelvis with contrast was completed yesterday. Study showed probably neoplastic mediastinal and epicardial lymphadenopathy no sign of pulmonary neoplasm. Additionally seen diffuse probably neoplastic lymphadenopathy throughout the retroperitoneum mesentery abraham hepatis pelvis and inguinal regions concerning for lymphoma versus metastases. Infiltrative soft tissue density noted involving the right lower quadrant mesentery finding in association with ascites raise suspicion for peritoneal carcinomatosis. There is limited evaluation of the colonic wall however questionable thickening of the ascending colonic wall and ill-definition of the proximal transverse colon with associated mesenteric soft tissue density was noted. Colonic neoplasm could not be excluded. General surgery consult was obtained given these findings to assess for colonoscopy. Patient's last colonoscopy dates back to September 2021 which was performed by Dr. Truong at the time. Study negative for any suspicious lesions, showed diverticulosis without diverticulitis. Will obtain records from recent surgery at [facility] in [place] to see if any concerning intra-abdominal findings were encountered during her laparoscopic hiatal hernia surgery. Patient states some biopsies were taken, however remembers these to be from an EGD not necessarily from any concerning lymph nodes. Additional concern for possible ovarian malignancy given elevated CA125 at 118.. Patient currently only has 1 ovary, ordered transvaginal ultrasound for better characterization of the remaining ovary which is not well-visualized on CT of the abdomen..Check bladder scan. reduce empric CTX dose from 2 g iv daily to 1 g iv daily for possible UTI given + LA on urine . Optimize pain control by using oxycodone APAP 08/04/2024 every 6 hours as needed. Additionally IV morphine ordered as needed.. June 30, 2023: Please see discharge summary. Patient eventually did not discharge. Plan for today June 23, 2023. Patient complaining of increasing abdominal distention. X-ray abdomen reviewed from this morning shows developing ileus. Make patient NPO. Place NG tube to low intermittent suction. Intermittently sinus tachycardia with heart rate going up to 154 especially with exertion. Start metoprolol 12.5 mg p.o. twice daily. Okay to continue meds with NG in place. She has had 3 episodes of diarrhea today. Check C. difficile. Pain is currently controlled. Overall patient appears to be uncomfortable relating to abdominal distention and tachycardia. Sodium improved to 130. P.o. salt tablets currently and twice daily. Plan for today June 24, 2023. NG tube was not tolerated therefore removed this morning. X-ray continues to show ileus. General surgery was consulted, appreciate recommendations. Potassium 3.4 this morning, supplemented with 40 mEq KCl IV. Sinus tachycardia better today with addition of metoprolol. C. difficile PCR returned negative. Pathology remains pending. Continue NPO. Conservative management. Start IV fluids D5 normal saline to maintain hydration. Plan for CT of the abdomen with contrast if failure to improve in the next 24 hours. Plan for today June 25, 2023. Patient had bowel movements yesterday. She has bowel sounds today. start clear liquid diet. Her abdomen appears to be less distended and softer today. States that she had inadequate pain control with her back pain yesterday. Add toradol 15mg IVP every 8 hrs prn. increase metoprolol to 25 mg BID, HR ranging 96-108 currently. Awaiting pathology results. Add PT, patient deconditioned as a result of her illness. Plan for today June 26, 2023. Ileus appears to be resolving. Patient passed a lot of gas and had a bowel movement. Good bowel sounds today. She still feels very weak. Able to tolerate a clear liquid diet but states she did not eat breakfast or lunch today because she felt too weak to sit up. Advance to full liquid diet today and assess for tolerability. Assessed by physical therapy yesterday. She is able to transfer out of bed and ambulate with FWW without any loss of balance. She is able to ambulate short distance without walker. She was able to walk up and down 4 steps with handrail without loss of balance. Sodium is normal at 136. Holding salt supplementation. Anticipate discharge in the upcoming 24 to 48 hours if patient continues to feel well. Attestations 2 Medical Necessity Statement*: Resolving ileus, assess bowel function, if able to tolerate diet may be able to discharge next 24 to 48 hours. Coding Level of Care Code Acute Code for Chg Fwd Moderate MDM includes number and complexity of problems actively addressed during encounter, amount and/or complexity of data reviewed/ordered and described risk of complication, morbidity or mortality of management as documented Diagnoses BEVERLY (acute kidney injury) N17.9 Acute hyponatremia E87.1 Suspected malignant neoplasm R68.89 Generalized lymphadenopathy R59.1
[2023-06-26] MEDS: ketorolac 30 mg/mL INJ 15 MG IVP (17:05)
[2023-06-26] MEDS: pantoprazole DR 40 mg Tablet PO (17:05)
[2023-06-27] VITALS: BP 156/87; PULSE 97; RESP 22; TEMP 36.6; O2SAT 22
[2023-06-27 04:00] VITALS: BP 143/87; PULSE 110; RESP 20; TEMP 36.4; O2SAT 87
[2023-06-27] MEDS: metoclopramide 5 mg/mL SDV 2 mL IVP (06:07)
--- NOTE | 2023-06-27 06:09 | PC.NURSE ---
Patient refused 0700 dose of albumin. Patient stated she doesn't need it because she's going home today, and that she'll have a breakdown if she stays here another day. Educated patient on the purpose of albumin and the risk of refusal, patient stated understanding and re-confirmed refusal. Notified Dr. Coats.
[2023-06-27 07:44] VITALS: BP 158/90; PULSE 118; RESP 20; TEMP 36.1; O2SAT 94
[2023-06-27] MEDS: pantoprazole DR 40 mg Tablet PO (08:19)
[2023-06-27] MEDS: polyethylene glycol 3350 Pkt 17 gm PO (08:19)
[2023-06-27] MEDS: tamsulosin 0.4 mg Capsule 0.400000000000000022 MG PO (08:19)
[2023-06-27] MEDS: metoprolol tartrate 25 mg Tablet PO (08:19)
[2023-06-27] MEDS: ketorolac 30 mg/mL INJ 15 MG IVP (09:12)
[2023-06-27 12:12] VITALS: BP 137/86; PULSE 99; RESP 19; TEMP 36.2; O2SAT 95
--- NOTE | 2023-06-27 12:39 | PM.DCS ---
Discharge Providers Date of Admission: 06/18/23 20:56 Date of Discharge: June 27, 2023 Attending Provider at Admission: Maverick Coats MD Attending Provider at Discharge: Mariajose Luciano MD Primary Care Provider: Estefani Montaño MD Diagnoses at Discharge Discharge Diagnosis (1) BEVERLY (acute kidney injury): Status: Resolved (2) Acute hyponatremia: Status: Resolved (3) Suspected malignant neoplasm: Status: Acute (4) Generalized lymphadenopathy: Status: Acute Reason for Visit Reason for Visit: back pain, no drink or eat, no bowel movement Hospital Course Hospital Course 77-year-old female with past medical history of hyperlipidemia, gastritis, duodenitis, anemia, fibromyalgia, chronic GERD, large hiatal hernia status postrepair in March 2023 at [place], presented to the hospital with progressively worsening back pain over the last 2 to 4 weeks. The pain was unbearable to the point of where she was not able to tolerate any po intake. She was found to have evidence of hyponatremia with sodium at 119. Nephrology was consulted, this was thought to be related to prerenal from poor p.o. intake. She received hydration with normal saline, thereafter transition to salt tablets. Sodium improved to 126 by the time of discharge. She is being transitioned home with oral salt tablets to be taken twice a day. Hospital course was also notable for discovery of generalized lymphadenopathy involving the mediastinum, epicardial lymph nodes, diffuse abdominal lymph nodes, and possibility of peritoneal carcinomatosis. Overall suspicion is that of malignant lymphadenopathy, primary lymphoma versus secondary metastases. She underwent lymph node biopsy from an inguinal lymph node on June 21, 2023, results of which are currently awaited at the time of discharge. Recommended to follow-up with primary care provider within the next week to follow-up on these biopsy results and thereafter to get referral to oncology based on biopsy results. She was noted to have elevated levels of CA125, has a past history of hysterectomy and unilateral oophorectomy related to infection in her 20s. Transvaginal ultrasound was obtained to evaluate the 1 remaining ovary, however remain nonconclusive. For her pain she was treated with oral oxycodone APAP and as needed morphine. Currently reports pain is controlled with oral opiates which are being used at the time of discharge as well. Her pain is improved. Currently she is bothered mostly by increased abdominal distention. Small amount of acetic fluid was noted in her abdomen, however not amenable to paracentesis as there is no safe window to approach. She has good bowel sounds and a benign abdominal exam. Likely that gas distention along with slow transit related to opiates may be contributing. CT of her abdomen and pelvis during admission had shown the lymphadenopathy but otherwise no acute abdominal events. X-ray of the abdomen repeated on June 21, 2023 without any signs of perforation or ileus. Recommended to continue MiraLAX at discharge. Additionally patient had reported difficulty with urinary stream, hesitancy, increased straining at micturition. She has not previously seen a urologist. Trial of Flomax 0.4 mg daily was initiated. No obvious obstructing calculi or external compression seen on CT scan. Ugarte catheter was placed transiently on June 21, 2023, only yielded about 250 cc of urine. She was kept NPO. She was placed on IV fluids. Patient was kept n.p.o. and had a bowel movement. She was able to tolerate full liquid diet. Discussed with general surgery and she was cleared to discharge at this time. Patient pathology report is still pending. She was able to tolerate diet. Patient able to ambulate short distance without walker. Sodium has been normal therefore salt tablets have been held. Patient adamantly requested for discharge. She said that she needs to leave the hospital and may come back but this time she will go to [facility] as she was unhappy with the food here at [facility]. Suad with general surgery. Since ileus has resolved and pathology reports are pending it may be reasonable to discharge the patient home at this time. She is to follow-up with her primary care doctor and oncology at discharge. Dr. Johansen did get a call from pathology with prelim path report possibly indicating lymphoma versus plasma cell dyscrasia. Serum SPEP UPEP has been recommended at this time as an add-on lab. We will call and inform the patient of the above. She will need close follow-up after discharge. Oxycodone was discontinued at discharge as per patient's request. She would like to continue tramadol for pain which I ordered for her. Lastly there was a concern raised by patient's that he could not take care of her at home and did not want to take her home however patient has capacity to make her decisions and would like to go home. We tried to explain to patient's that patient is making a decision for herself. Patient was not interested in detention placement at this time. Physical Exam Narrative: General: No acute distress, AO x3 HEENT: PERRLA, pupils bilaterally equal and reactive, pallors not present Chest: Normal vesicular breath sounds, no added sounds, equal good air entry bilaterally CVS: S1-S2 regular, no murmurs, no tachycardia, no gallops, no rubs Abdomen: Soft, less distended than before. BS + Neuro: No focal deficits, no facial deformity, AO x3 Urinary Catheter Management: Ugarte: Cath Placed During This Visit: yes, but has since been removed by the nurse Reason for Continuing Indwelling Catheter: Acute Urinary Retention or Obstruction Urinary Catheter Date of Insertion: 06/21/23 Urinary Catheter Time of Insertion: 15:00 Date Urinary Catheter Removed: 06/22/23 Time Urinary Catheter Discontinued: 13:00 Discharge Data Studies Completed and Pending Completed Studies During Hospitalization Category Date Time Status CT abdomen pelvis wo con [id number] Stat Cat Scan 06/18/23 17:[address] chest abdomen pelvis [CT chest abdpel w/*[id number] Cat Scan 06/20/23 12:54 Completed ] Routine CXRP [XR chest 1V portable 12497] Routine Exams 06/23/23 15:32 Completed XR abdomen 1V* [id number] AM LABS Exams 06/23/23 07:00 Completed XR abdomen 1V* 93084 AM LABS Exams 06/24/23 07:00 Completed XR abdomen 1V* 40358 Routine Exams 06/25/23 15:52 Completed XR abdomen 1V* 82199 Stat Exams 06/21/23 17:49 Completed CV. echo complete* [id number] Routine Ultrasound 06/19/23 06:00 Completed US abdomen lmt fluid [id number] Routine Ultrasound 06/20/23 12:51 Completed US abdomen lmt fluid [id number] Routine Ultrasound 06/22/23 17:49 Completed US biopsy lymph node [id number] Routine Ultrasound 06/21/23 08:33 Completed US transvaginal [id number] Routine Ultrasound 06/21/23 16:54 Completed Pending at discharge Category Date Time Status Pathology: Surgical [PTH] Routine Pth 06/21/23 10:01 Received Radiology Impressions Abdomen/Pelvis CT 06/18/23 17:55 IMPRESSION: 1. Mesenteric and retroperitoneal lymphadenopathy raises concern for lymphoma. CT scan abdomen/pelvis with IV contrast recommended for further evaluation. 2. Small bilateral pleural effusions with adjacent compressive atelectasis. 3. Mildly nodular liver contour raises concern for cirrhosis. 4. There is a moderate amount of free intraperitoneal fluid/ascites in the abdomen/pelvis. 5. Colonic constipation is present. Chest/Abdomen/Pelvis CT 06/20/23 12:54 IMPRESSION: 1. Probably neoplastic mediastinal and epicardial lymphadenopathy. 2. Small simple dependent bilateral pleural effusions. 3. Segmental compressive atelectasis in both lower lobes. 4. No sign of pulmonary neoplasm. IMPRESSION: 1. Diffuse probably neoplastic lymphadenopathy throughout the retroperitoneum, mesentery, abraham hepatis, pelvis and inguinal regions. Lymphoma versus metastases. 2. Infiltrative soft tissue density involving the right lower quadrant mesentery. This finding in association with ascites raises suspicion for peritoneal carcinomatosis. 3. Limited evaluation of the colonic wall due to the presence of high density intraluminal contrast. There is questionable thickening of the ascending colonic wall and ill definition of the proximal transverse colonic wall associated with infiltrative mesenteric soft tissue density. Possible colonic neoplasm versus secondary involvement of the mesentery and colon. 4. Incidental findings above. Transvaginal US 06/21/23 16:54 IMPRESSION: 1. There is incomplete visualization of the uterine and ovarian, adnexal structures. There is history of hysterectomy provided. If there is clinical concern for residual then consider tumor marker laboratory values. 2. There is abdominal and pelvic fluid present corresponding to the previous descriptions. Chest X-Ray 06/23/23 15:32 IMPRESSION: NG tube appears in good position at the expected level of the mid stomach in the left upper abdomen. Abdomen X-Ray 06/25/23 15:52 IMPRESSION: 1. No evidence for bowel obstruction or perforation. 2. Oral contrast in multiple areas of the colon from the cecum to the distal sigmoid colon. The amount in the sigmoid colon has mildly decreased, remainder of the contrast is overall stable. 3. Incidental/nonacute findings are listed in the report. Laboratory Results WBC 7.26 10^3/uL (3.29-11.43) 06/25/23 05:28 RBC 3.98 10^6/uL (3.85-5.65) 06/25/23 05:28 Hgb 10.00 g/dL (11.27-16.99) L 06/25/23 05:28 Hct 31.1 % (36-47) L 06/25/23 05:28 MCV 78.1 fl (85-98) L 06/25/23 05:28 MCH 25.1 pg (27-33) L 06/25/23 05:28 MCHC 32.2 g/dL (30-55) 06/25/23 05:28 RDW 16.6 % (12.1-15.1) H 06/25/23 05:28 Plt Count 182 10^3/cmm (157-399) 06/25/23 05:28 MPV 9.6 fL (7.4-10.4) 06/25/23 05:28 Neut % (Auto) 72.8 % 06/25/23 05:28 Lymph % (Auto) 5.5 % 06/25/23 05:28 [place] % (Auto) 20.0 % 06/25/23 05:28 Eos % (Auto) 0.4 % 06/25/23 05:28 Baso % (Auto) 0.3 % 06/25/23 05:28 Neut # (Auto) 5.29 10^3/uL (1.8-7.7) 06/25/23 05:28 Lymph # (Auto) 0.4 10^3/uL (0.8-4.8) L 06/25/23 05:28 [place] # (Auto) 1.5 10^3/uL (0.2-0.9) H 06/25/23 05:28 Eos # (Auto) 0.0 10^3/uL (0.0-0.8) 06/25/23 05:28 Baso # (Auto) 0.0 10^3/uL (0.0-0.1) 06/25/23 05:28 Nucleated RBC % (auto) 0 % 06/25/23 05:28 Nucleated RBCs # 0.0 /100WBC 06/25/23 05:28 Sodium 136 mmol/L (136-145) 06/26/23 03:29 Potassium 3.7 mmol/L (3.5-5.1) 06/26/23 03:29 Chloride 100 mmol/L (98-107) 06/26/23 03:29 Carbon Dioxide 22 mmol/L (22-29) 06/26/23 03:29 Anion Gap 17.7 (5-19) 06/26/23 03:29 BUN 31 mg/dL (8-23) H 06/26/23 03:29 Creatinine 0.8 mg/dL (0.5-0.9) 06/26/23 03:29 GFR Calculation Not Reportable 06/26/23 03:29 Glucose 101 mg/dL (65-115) 06/26/23 03:29 Serum Osmolality 269 mOsm/kg (278-305) L 06/18/23 23:39 Calculated Osmolality 289 mOsm/kg (285-295) 06/26/23 03:29 Uric Acid 7.5 mg/dL (2.4-5.7) H 06/18/23 17:45 Calcium 9.6 mg/dL (8.5-10.5) 06/26/23 03:29 Phosphorus 2.4 mg/dL (2.5-4.5) L 06/25/23 05:28 Magnesium 1.9 mg/dL (1.7-2.3) 06/25/23 05:28 Total Bilirubin 0.6 mg/dL (0.15-1.2) 06/26/23 03:29 AST 13 U/L (0-32) 06/26/23 03:29 ALT < 5 U/L (0-33) 06/26/23 03:29 Alkaline Phosphatase 43 U/L (35-105) 06/26/23 03:29 Lactate Dehydrogenase 322 U/L (135-214) H 06/18/23 Unknown C-Reactive Protein 94.2 mg/L (0.0-4.9) H 06/19/23 04:14 Total Protein 7.5 g/dL (6.6-8.7) 06/26/23 03:29 Albumin 5.0 g/dL (3.5-5.2) 06/26/23 03:29 Globulin 2.5 g/dL (1.3-4.6) 06/26/23 03:29 Tumor Marker AFP 2.0 ng/mL (0-8.3) 06/18/23 Unknown CA 125 Antigen 118.9 U/mL (0-35) H 06/20/23 09:03 TSH 1.58 uIU/mL (0.27-4.20) 06/18/23 21:57 Urine Color Yellow (Yellow) 06/18/23 19:14 Urine Appearance Clear (CLEAR) 06/18/23 19:14 Urine pH 6.5 (5-7) 06/18/23 19:14 Ur Specific [place] 1.010 (1.005-1.030) 06/18/23 19:14 Urine Protein Trace (Negative) 06/18/23 19:14 Urine Glucose (UA) Norm (Normal) 06/18/23 19:14 Urine Ketones 1+ (Negative) H 06/18/23 19:14 Urine Blood 2+ (Negative) H 06/18/23 19:14 Urine Nitrate Negative (Negative) 06/18/23 19:14 Urine Bilirubin 1+ (Negative) H 06/18/23 19:14 Urine Urobilinogen Neg mg/dL (Negative) 06/18/23 19:14 Ur Leukocyte Esterase Trace (Negative) H 06/18/23 19:14 Urine RBC 5-10 /hpf (0-2) H 06/18/23 19:14 Urine WBC 5-10 /hpf (0-5) H 06/18/23 19:14 Ur Squamous Epith Cells 0-4 /hpf (0-5) H 06/18/23 19:14 Amorphous Sediment 1+ /hpf 06/18/23 19:14 Urine Bacteria 1+ /hpf (NONE) H 06/18/23 19:14 Hyaline Casts 0-4 /lpf H 06/18/23 19:14 RBC Casts 0-4 /lpf 06/18/23 19:14 Urine Mucus 2+ /hpf 06/18/23 19:14 Urine Osmolality 468 mOsm/kg (50-1200) 06/18/23 23:36 Ur Random Microalbumin 2 ug/dL (0-20) 06/18/23 19:14 Ur Random Sodium 19 mmol/L 06/18/23 19:14 Urine Creatinine 179 mg/dL (28-217) 06/18/23 19:14 Microalb/Creat Ratio 11 mg/dL (0-20) 06/18/23 19:14 RPR Nonreactive (Nonreactive) 06/21/23 05:39 RPR Titer/FTA Cancelled 06/21/23 05:39 RPR w/Rflx to Titer Cancelled 06/21/23 05:39 C. difficile (PCR) Negative (Negative) 06/23/23 13:33 Hepatitis A IgM Ab Non-reactive (Nonreactive) 06/21/23 05:39 Hep Bs Antigen Non-reactive (Nonreactive) 06/21/23 05:39 Hep Bs Antibody < 3.5 (11.5-1000) L 06/21/23 05:39 Hep B Core Total Ab Non-reactive (Nonreactive) 06/21/23 05:39 Hepatitis C Antibody Non-reactive (Nonreactive) 06/21/23 05:39 HIV 1&2 Ab & HIV 1 Ag Non-reactive (Non-Reactiv) 06/21/23 05:39 HIV 1&2 Antibody Non-reactive (Non-Reactiv) 06/21/23 05:39 Vitals Last Vital Signs Temp 97.2 F L 06/27/23 12:12 Pulse 99 06/27/23 12:12 Resp 19 H 06/27/23 12:12 BP 137/86 06/27/23 12:12 Pulse Ox 95 06/27/23 12:12 O2 Del Method Nasal Cannula 06/27/23 07:44 O2 Flow Rate 2 06/27/23 08:00 Discharge Plan Discharge Patient Disposition: Home Health Service Condition: Stable Prescriptions: New polyethylene glycol 3350 17 gram Powder In Packet 17 g PO DAILY PRN (Reason: Constipation) Qty: 14 0RF metoprolol tartrate 25 mg Tablet 25 mg PO BID@0900,2100 Qty: 60 0RF Reglan 5 mg tablet 5 mg PO TID PRN (Reason: nausea and vomiting) Qty: 10 0RF Continued fexofenadine [Allergy Relief (fexofenadine)] 180 mg tablet 180 mg PO DAILY PRN (Reason: Allergy Symptoms) 90 Days Qty: 90 3RF fluticasone propionate 50 mcg/actuation spray,suspension See Rx Instructions .ROUTE .COMPLEX Qty: 48 2RF Dose Instruction: USE 1 SPRAY IN EACH NOSTRIL TWICE DAILY Rx Instructions: USE 1 SPRAY IN EACH NOSTRIL TWICE DAILY ascorbic acid (vitamin C) [Vitamin C] 500 mg Tablet 500 mg PO DAILY calcium carbonate-vitamin D3 600 mg-5 mcg (200 unit) tablet 1 tab PO DAILY Iron (ferrous sulfate) 325 mg (65 mg iron) Tablet 325 mg PO DAILY tramadol 50 mg tablet 50 mg PO BID PRN (Reason: pain) Qty: 10 0RF cyclobenzaprine 10 mg tablet 10 mg PO TID Qty: 30 0RF acetaminophen 500 mg tablet 1,000 mg PO Q6H PRN (Reason: pain) Qty: 60 0RF Changed pantoprazole 40 mg tablet,delayed release (DR/EC) 40 mg PO BIDWMEAL Qty: 60 0RF Discharge Orders: Discharge Order (Routine); Ordered 06/27/23 Ordered By: Mariajose Luciano Other Ambulatory Orders: DME: Vinod (Order) Location: None Selected Ordered By: Maria E Johansen Referrals: [facility] [Outside] Liam Figueroa MD [Physician] - 1 week Morgan Soares MD [Hospitalist] - 4-7 days (We have notified your physician's clinic of the need for a follow-up appointment to be scheduled. If you have not heard from them within the next 2 business days, please call them directly. ) Estefani Montaño MD [Primary Care Provider] - 06/28/23 11:00 am Discharge Diet: GI Soft Discharge Activity: Increase activity as tolerated Patient Instructions: Metoprolol (By mouth), Metoclopramide (By mouth), Tramadol (By mouth), Polyethylene Glycol 3350 (By mouth), Acute Kidney Injury (DC), Opioid Safety Discharge Attestations Time Spent in Discharge Care*: greater than 30 min Quality Metrics Clinical Quality Measures [ No reported AMI, CVA or VTE this stay] Coding Level of Care Code Acute Code for Chg Fwd Diagnoses BEVERLY (acute kidney injury) N17.9 Acute hyponatremia E87.1 Suspected malignant neoplasm R68.89 Generalized lymphadenopathy R59.1
--- NOTE | 2023-06-27 14:00 | PC.NURSE ---
D/C pending home o2 eval and a new prescription for pain meds as pt cannot tolerate oxycodone.
[2023-06-27 14:04] VITALS: O2SAT 92; O2SAT 94
== END 2023-06-27 15:00 | disposition home health service (06) | DRG 629 ==
LOC: ER 20:47 → ICU 21:25 → MEDSURG 06-20 18:08
PROVIDERS: Family Medicine; Student in an Organized Health Care Education/Training Program; Admitting Provider Internal Medicine; Emergency Provider Emergency Medicine; PCP Family Medicine; Visit Provider Internal Medicine
DX: E87.1 Hypo-osmolality and hyponatremia (principal); K56.7 Ileus, unspecified; N17.9 Acute kidney failure, unspecified; R18.8 Other ascites; R53.81 Other malaise; R59.1 Generalized enlarged lymph nodes; E87.5 Hyperkalemia; R00.0 Tachycardia, unspecified; Z80.1 Family history of malignant neoplasm of trachea, bronchus and lung; E86.0 Dehydration; D64.9 Anemia, unspecified; K74.60 Unspecified cirrhosis of liver; R63.4 Abnormal weight loss; Z68.23 Body mass index [BMI] 23.0-23.9, adult; K21.9 Gastro-esophageal reflux disease without esophagitis; R39.11 Hesitancy of micturition
CPT/HCPCS: 36415; 38505; 49083; 51702; 51798; 71045; 71260; 74018; 74176; 74177; 76705; 76830; 76942; 80048; 80053; 81000; 81001; 82044; 82105; 83615; 83735; 83930; 83935; 84100; 84295; 84300; 84443; 84550; 85025; 86140; 86304; 86592; 86705; 86706; 86709; 86803; 87086; 87340; 87493; 87806; 88305; 93005; 93306; 94760; 96361; 96374; 96375; 97116; 97162; 97530; 99285; C9113; J0696; J1100; J1885; J1940; J2270; J2360; J2765; J3480; J3490; J7030; J7042; P9046; Q3014; Q9967